=== PATIENT | female | born 1950 | race Caucasian/White ===

== ENCOUNTER → 2017-10-28 10:12 | Outpatient (POV) | payer MEDICARE, BC, SELFPAY | PROVIDERS: Family Provider Family Medicine; Visit Provider Physician Assistant | DX: Z00.00 Encounter for general adult medical examination without abnormal findings (principal) ==

== ENCOUNTER → 2020-05-10 08:15 | Outpatient (CLI) | payer MEDICARE, BC, SELFPAY ==
[2020-05-10 09:24] LABS: Chloride 105 mmol/L (98-107)
[2020-05-10 09:25] LABS: Potassium 3.8 mmoL/L (3.5-5.1); Sodium 141 mmol/L (136-145)
[2020-05-10 09:27] LABS: Alanine Aminotransferase 14 U/L (12-78); Anion Gap 12.8 mEq/L (5-15); Aspartate Amino Transferase 25 U/L (14-36); Blood Urea Nitrogen 16 mg/dl (7-17); Carbon Dioxide 27 mmol/L (22.0-30.0); Estimated Glomerular Filt Rate 82 ml/min (>60); GFR (African American) 100 ML/MIN (>60)
[2020-05-10 09:28] LABS: Albumin Level 4.1 g/dl (3.5-5.0); Albumin/Globulin Ratio 1.4 (1.1-1.8); Alkaline Phosphatase 83 U/L (38-126); Bilirubin,Total 1.3 mg/dl (0.2-1.3); Calcium 9.7 mg/dl (8.4-10.2); Chol/HDL Ratio 5.1 (1-3.5); Cholesterol 255 mg/dl (140-200); Glucose 103 mg/dl (74-100); HDL Cholesterol 50 mg/dl (40-60); Total Protein,Serum 7.1 g/dl (6.3-8.2); Triglycerides 88 mg/dl (30-150); VLDL Cholesterol 18 mg/dL (0-40)
[2020-05-10 09:39] LABS: Direct LDL Cholesterol 179.17 mg/dL (100-129)
[2020-05-10 09:57] LABS: Thyroid Stimulating Hormone 2.92 uIU/mL (0.465-4.68)
== END ==
PROVIDERS: Visit Provider Family Medicine
DX: I10 Essential (primary) hypertension (principal); E78.5 Hyperlipidemia, unspecified
CPT/HCPCS: 36415; 80053; 80061; 84443

== ENCOUNTER → 2021-10-17 11:21 | Outpatient (CLI) | payer MEDICARE, BC, SELFPAY ==
--- NOTE | 2021-10-17 11:27 | XR_ITS ---
FINAL REPORT CLINICAL HISTORY: LOW BACK PAIN x 2 WEEKS NKI FINDINGS: 5 views of the lumbar spine were obtained. There is no evidence of fracture or dislocation. The vertebral alignment is normal. There are mild degenerative changes with osteophytes. No paraspinous soft tissue abnormalities identified. IMPRESSION: Mild degenerative change with osteophytes. Reviewed, Interpreted and Dictated by Chris Kate III, MD Transcribed by Luis E Flores Authenticated by Chris Kate III, MD on 10/17/2021 01:50:24 PM [facility]
== END ==
PROVIDERS: PCP Family Medicine; Visit Provider Family Medicine
DX: M54.59 Other low back pain (principal)
CPT/HCPCS: 72110

== ENCOUNTER → 2021-10-25 11:48 | Outpatient (CLI) | payer MEDICARE, BC, SELFPAY ==
[2021-10-25 12:57] LABS: Basophils % 0.5 % (0.1-2.0); Eosinophils # 0.2 K/mm3 (0.0-0.4); Eosinophils % 2.5 % (0.1-12.0); Hemoglobin 14.4 g/dL (12.2-16.2); Lymphocytes # 1.7 K/mm3 (0.7-4.5); Lymphocytes % 17.6 % (10-50); Mean Corpuscular HGB Conc 32.6 g/dL (31.8-35.4); Mean Corpuscular Hemoglobin 28.9 pg (27.0-31.2); Mean Corpuscular Volume 88.8 fl (81-99); Mean Platelet Volume 6.9 fl (7.4-10.4); Monocytes # 0.6 K/mm3 (0.1-1.0); Monocytes % 5.8 % (1.7-9.3); Neutrophils % 73.7 % (37.0-80.0); Platelet Count 455 K/mm3 (142-424); Red Blood Count 4.96 M/mm3 (4.20-5.40); Red Cell Distribution Width 13.6 % (11.5-17.5); White Blood Count 9.5 K/mm3 (4.8-10.8)
== END ==
PROVIDERS: PCP Family Medicine; Visit Provider Physician Assistant
DX: U07.1 COVID-19 (principal)
CPT/HCPCS: 36415; 85025; C9803; U0003; U0005

== ENCOUNTER → 2022-10-05 15:38 | Outpatient (CLI) | payer MEDICARE, BC, OTHER, SELFPAY ==
--- NOTE | 2022-10-05 15:46 | CA_ITS ---
FINAL REPORT TECHNIQUE: Compression buck scale and Doppler evaluation CLINICAL HISTORY: HTN, hyperlipidemia, obesity. Patient states the bottom of her foot has been numb for a few weeks with a diagnosis of gout. She states last night her right calf began swelling and pain started in posterior calf. Denies trauma. FINDINGS: Femoral and popliteal veins show normal compressibility and flow. Visualized portion of the calf veins are patent by Doppler exam. IMPRESSION: No evidence of right lower extremity deep venous thrombosis Reviewed, Interpreted and Dictated by Froy Joy MD Transcribed by April Barrow Authenticated and [facility]
== END ==
PROVIDERS: PCP Family Medicine; Visit Provider Physician Assistant
DX: M79.604 Pain in right leg (principal); R60.0 Localized edema
CPT/HCPCS: 93971

== ENCOUNTER → 2023-08-13 12:37 | Outpatient (CLI) | payer MEDICARE, BC, OTHER, SELFPAY ==
--- NOTE | 2023-08-13 12:46 | XR_ITS ---
FINAL REPORT CLINICAL HISTORY: RT FOOT PAIN FINDINGS: Right foot Three views were obtained. There is no acute fracture or dislocation. Mild degenerative changes are present. Note is made of calcaneal spurs. No soft tissue abnormality is identified. IMPRESSION: Degenerative and chronic appearing findings. Reviewed, Interpreted and Dictated by Chris Kate III, MD Transcribed by Andreina Santa Authenticated and [facility]
== END ==
PROVIDERS: PCP Family Medicine; Visit Provider Family Medicine
DX: M79.672 Pain in left foot (principal); M79.671 Pain in right foot
CPT/HCPCS: 73630

== ENCOUNTER 2023-09-24 10:27 | Outpatient (POV) | payer MEDICARE, BC, OTHER, SELFPAY | END 2023-09-24 23:59 | disposition home or self-care (01) | LOC: SC 10:28 | PROVIDERS: PCP Family Medicine; Visit Provider Dermatology | DX: Z00.00 Encounter for general adult medical examination without abnormal findings (principal) ==

== ENCOUNTER 2023-09-27 07:58 | Outpatient (CLI) | payer MEDICARE, BC, OTHER, SELFPAY ==
--- NOTE | 2023-09-27 08:03 | XR_ITS ---
FINAL REPORT CLINICAL HISTORY: POST MENOPAUSAL Osteoporosis screening COMPARISON: None FINDINGS: Using L1-4, the bone mineral density of the spine is 0.918 g/cm2, corresponding to T-score of -1.2, consistent with low bone density. Using the left hip, the bone mineral density of the femoral neck is 0.858 g/cm2, corresponding to a T-score of -0.7, within normal limits. Using the right hip, the bone mineral density of the femoral neck is 0.629 g/cm2, corresponding to a T-score of -2.0, consistent with low bone density. FRAX 10 year fracture risk is 2.3% for a hip fracture and 11% for a major osteoporotic fracture. NOTE: T-score: Standard deviation compared with peak bone mass of young adult mean. *Following the recommendations of the International Society of Bone densitometry, classification of hip BMD is based on the lower of two T-scores; total hip or femoral neck. IMPRESSION: Diminished bone mineral density consistent with low bone density. Reviewed, Interpreted and Dictated by Chris Kate III, MD Transcribed by Mulu Ernandez Authenticated and [facility]
== END 2023-09-27 23:59 ==
LOC: RAD 07:59
PROVIDERS: PCP Family Medicine; Visit Provider Family Medicine
DX: Z78.0 Asymptomatic menopausal state (principal)
CPT/HCPCS: 77080

== ENCOUNTER 2024-01-24 10:01 | Outpatient (CLI) | payer MEDICARE, BC, OTHER, SELFPAY ==
--- NOTE | 2024-01-24 10:04 | US_ITS ---
PROCEDURE: US TRANSVAGINAL CLINICAL INDICATION: VAG. BLEEDING COMPARISON: No recent exams were available for comparison FINDINGS: Transvaginal sonographic images of the pelvis were obtained. UTERUS: 5.5cm x 4.3cmx 3.0cm anteverted with a combined endometrial thickness of 11.6mm. There are small cystic areas within the endometrium. There is fluid in the cervix. LEFT OVARY: 2.7 cmx1.3cmx1.3cm with a volume of 2.3ml. RIGHT OVARY: 1.9 cmx 1.7 cmx1.9 cm with a volume of 3.1ml. Both ovaries are seen and appear solid and atrophic. Doppler flow to both ovaries are seen. There is no fluid in the cul-de-sac. IMPRESSION: 1. Anteverted uterus small in size. There is fluid in the cervix. 2. The endometrium is thickened and cystic. Suspicious for endometrial hyperplasia/endometrial carcinoma. 3. Suggest endometrial sampling. 4. Both ovaries are solid, small and atrophic appearing. 5. No fluid in the cul-de-sac. Dictated by: Marciano Willams MD 01/24/2024 16:41 Marciano Willams MD in OV 01/24/2024 16:41
== END 2024-01-24 23:59 | disposition home or self-care (01) ==
LOC: RAD 10:02
PROVIDERS: PCP Family Medicine; Visit Provider Physician Assistant
DX: N93.9 Abnormal uterine and vaginal bleeding, unspecified (principal)
CPT/HCPCS: 76830

== ENCOUNTER 2024-02-13 08:13 | Outpatient (CLI) | payer MEDICARE, BC, OTHER, SELFPAY ==
[2024-02-13 08:46] LABS: Basophils # 0.1 K/mm3 (0-0.2); Basophils % 0.8 % (0.1-2.0); Eosinophils # 0.2 K/mm3 (0.0-0.4); Hematocrit 42.6 % (37.0-47.0); Lymphocytes # 1.7 K/mm3 (0.7-4.5); Lymphocytes % 22.8 % (10-50); Mean Corpuscular HGB Conc 32.8 g/dL (31.8-35.4); Mean Corpuscular Hemoglobin 29.9 pg (27.0-31.2); Mean Corpuscular Volume 91.1 fl (81-99); Monocytes # 0.4 K/mm3 (0.1-1.0); Monocytes % 5.5 % (1.7-9.3); Neutrophils # 5.2 K/mm3 (1.8-7.8); Neutrophils % 67.9 % (37.0-80.0); Platelet Count 399 K/mm3 (142-424); Red Blood Count 4.67 M/mm3 (4.20-5.40); Red Cell Distribution Width 14.5 % (11.5-17.5); White Blood Count 7.6 K/mm3 (4.8-10.8)
[2024-02-13 09:34] LABS: Chloride 105 mmol/L (98-107); Sodium 140 mmol/L (136-145)
[2024-02-13 09:35] LABS: Potassium 4.4 mmoL/L (3.5-5.1)
[2024-02-13 09:37] LABS: Alanine Aminotransferase 17 U/L (12-78); Albumin Level 4.1 g/dl (3.5-5.0); Albumin/Globulin Ratio 1.4 (1.1-1.8); Alkaline Phosphatase 86 U/L (38-126); Anion Gap 13.4 mEq/L (5-15); Aspartate Amino Transferase 27 U/L (14-36); Bilirubin,Total 0.9 mg/dl (0.2-1.3); Blood Urea Nitrogen 16 mg/dl (7-17); Calcium 10.1 mg/dl (8.4-10.2); Carbon Dioxide 26 mmol/L (22.0-30.0); Estimated Glomerular Filt Rate 82 ml/min (>60); GFR (African American) 99 ML/MIN (>60); Globulin 2.9 g/dL (1.3-3.2); Glucose 115 mg/dl (74-100)
== END 2024-02-13 23:59 | disposition home or self-care (01) ==
LOC: LAB 08:14
PROVIDERS: PCP Family Medicine; Visit Provider Obstetrics & Gynecology
DX: N95.0 Postmenopausal bleeding (principal)
CPT/HCPCS: 36415; 80053; 85025

== ENCOUNTER 2024-02-22 15:45 | Observation (INO) | payer MEDICARE, BC, OTHER, SELFPAY ==
[2024-02-22] VITALS (7 sets, daily range): BP systolic 140–171; BP diastolic 67–86; PULSE 60–80; RESP 12–22; TEMP 36.6–36.7; O2SAT 93–99; BMI 25.7; BMI 42.0; BMI 40.5
--- NOTE | 2024-02-22 15:40 | CT_ITS ---
PROCEDURE INFORMATION: Exam: CT Head Without Contrast Exam date and time: 02/22/2024 3:48 PM Age: 73 years old Clinical indication: Stroke-like symptoms; Dizziness/giddiness and visual disturbance and other: Nausea; Additional info: CVA alert TECHNIQUE: Imaging protocol: Computed tomography of the head without contrast. Radiation optimization: All CT scans at this facility use at least one of these dose optimization techniques: automated exposure control; mA and/or kV adjustment per patient size (includes targeted exams where dose is matched to clinical indication); or iterative reconstruction. Other technique: STROKE PROTOCOL was implemented. COMPARISON: No relevant prior studies available. FINDINGS: Brain: There is white matter lucency most likely to represent chronic microvascular disease. No evidence of acute infarct. No hemorrhage or extra-axial collection. No mass. Cerebral ventricles: There is no hydrocephalus. Paranasal sinuses: Visualized sinuses are unremarkable. No fluid levels. Mastoid air cells: Visualized mastoid air cells are well aerated. Bones: Unremarkable. No acute fracture. Soft tissues: Unremarkable. IMPRESSION: No intracranial lesion or injury ASSESSMENT: ASPECTS ([place] Stroke Program Early CT Score) is 10.
--- NOTE | 2024-02-22 15:52 | PC.NURSE ---
Upon arrival by EMS pt sent straight to CT. FSBS: 135 upon arrival
[2024-02-22 16:03] LABS: Basophils # 0.1 K/mm3 (0-0.2); Basophils % 0.7 % (0.1-2.0); Eosinophils # 0.3 K/mm3 (0.0-0.4); Eosinophils % 2.2 % (0.1-12.0); Hematocrit 44.2 % (37.0-47.0); Lymphocytes # 2.2 K/mm3 (0.7-4.5); Lymphocytes % 19.5 % (10-50); Mean Corpuscular HGB Conc 31.7 g/dL (31.8-35.4); Mean Corpuscular Hemoglobin 29.2 pg (27.0-31.2); Mean Platelet Volume 7.6 fl (7.4-10.4); Monocytes # 0.5 K/mm3 (0.1-1.0); Monocytes % 4.4 % (1.7-9.3); Neutrophils # 8.2 K/mm3 (1.8-7.8); Neutrophils % 73.2 % (37.0-80.0); Platelet Count 428 K/mm3 (142-424); Red Cell Distribution Width 14.2 % (11.5-17.5); White Blood Count 11.1 K/mm3 (4.8-10.8)
[2024-02-22 16:06] LABS: Chloride 107 mmol/L (98-107); Sodium 139 mmol/L (136-145)
[2024-02-22 16:07] LABS: Potassium 3.8 mmoL/L (3.5-5.1)
--- NOTE | 2024-02-22 16:07 | ECG_ITS ---
APPROVED REPORT Exam: Resting ECG HR:70 bpm ECG Measurements Heart Rate 70 AXES ID 196 P 57 QRSd 101 QRS -1 QT 397 T 57 QTc 418 Conclusion SINUS RHYTHM NORMAL ECG UNCONFIRMED REPORT Electronically signed by : Kian Ta, 02/22/2024 22:36:26
[2024-02-22 16:09] LABS: Alanine Aminotransferase 20 U/L (12-78); Albumin Level 4.2 g/dl (3.5-5.0); Albumin/Globulin Ratio 1.2 (1.1-1.8); Alkaline Phosphatase 98 U/L (38-126); Anion Gap 13.8 mEq/L (5-15); Aspartate Amino Transferase 28 U/L (14-36); Bilirubin,Total 0.7 mg/dl (0.2-1.3); Blood Urea Nitrogen 17 mg/dl (7-17); Carbon Dioxide 22 mmol/L (22.0-30.0); Creatinine Clearance Estimated 53 mL/min (50-200); Estimated Glomerular Filt Rate 54 ml/min (>60); GFR (African American) 66 ML/MIN (>60); Globulin 3.5 g/dL (1.3-3.2); Total Protein,Serum 7.7 g/dl (6.3-8.2)
[2024-02-22 16:10] LABS: Calcium 9.8 mg/dl (8.4-10.2); Glucose 152 mg/dl (74-100)
--- NOTE | 2024-02-22 16:16 | PC.NURSE ---
Dr. Ta at BS for pt adam. at BS
--- NOTE | 2024-02-22 16:17 | PC.NURSE ---
Dr. Ta at bedside
[2024-02-22 16:22] LABS: Troponin I < 0.01 ng/ml (0.00-0.034)
--- NOTE | 2024-02-22 16:30 | ED_ITS ---
Discharge Plan Disposition Chief Complaint: Altered Mental Status Clinical Impressions Clinical Impression: Syncope, Acute encephalopathy, Respiratory arrest Discharge ED Provider: Marita Ta General Adult HPI General Chief complaint: Altered Mental Status Stated complaint: Possible Stroke Time Seen by Provider: 02/22/24 16:02 Mode of Arrival: EMS Source of Information: Patient, Spouse, Relative and EMS Limitations: Altered Mental Status Description of Symptoms (Recalled from ER Triage Doc. by RN): per ems and family patient was outside in garage and got dizzy and nauseated, pt states she dont feel right in the head and that this is different than her inner ear dizziness, per ems and upon arrival fbs and vitals WNL. pt alert but confused. last known well was 1400 per family pt takes no blood thinners History of Present Illness HPI narrative: Patient is a 73-year-old female presented today with altered mental status. History is obtained from the patient but is limited secondary to her clinical status also was obtained from family who is at the bedside. They state that she was in her normal state of health until about 245 when she started to get nauseated she had only been outside for about 30 minutes but it is about 90 to 95 degrees outside today. She went to sit down and they found her slumped over in a chair unconscious and she was not breathing for about 1 minute. They stated they were about to do chest compressions they did not check a pulse but she subsequently woke up shortly after that and was very confused. EMS felt as though there may have been's unilateral weakness she was taken straight to the CAT scan. However CTAs were not performed given that she has had severe anaphylaxis to contrast in the past. Noncontrasted CT scan was performed prior to my evaluation. She states she just got very confused and nauseated and that she denies any other symptoms right now. Family states she is not at her mental baseline at the moment. Related Data Home Medications Medication Instructions Recorded Confirmed allopurinol 100 mg tablet 100 mg PO DAILY 09/19/23 02/19/24 (Zyloprim) omeprazole 20 mg capsule,delayed 20 mg PO DAILY 09/19/23 02/19/24 release rosuvastatin 10 mg tablet 10 mg PO DAILY 09/19/23 02/19/24 sertraline 25 mg tablet (Zoloft) 25 mg PO DAILY 09/19/23 02/19/24 Previous Rx's Medication Instructions Recorded acetaminophen 500 mg tablet 500 mg PO Q6H PRN fever #30 tabs 02/14/24 ibuprofen 800 mg tablet 800 mg PO Q8H PRN Pain, Mild #30 02/14/24 tabs Allergies Allergy/AdvReac Type Severity Reaction Status Date / Time ampicillin Allergy Unknown S-ANAPHYLAX Verified 02/19/24 11:06 IS cefaclor Allergy Unknown I-HIVES Verified 02/19/24 11:06 Iodinated Contrast Media Allergy Hives Verified 02/19/24 11:06 [facility] Disclaimer: The information contained in this section may have been updated after the patient was seen, as this information can be updated by other users. 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 Travel in the last 8 weeks: None ROS Obtained: Yes All systems reviewed & no additional complaints except as documented Physical Exam General General appearance: alert Respiratory Respiratory exam: Present other (Oxygen saturations 90% on room air no respiratory distress) Cardiovascular Cardiovascular exam: Present regular rate and normal rhythm Abdominal Exam Abdominal exam: Present soft; Absent distention or tenderness Neurological Exam Neurological exam: Present alert, oriented X3 (Patient is not oriented to situation or date), CN II-XII intact and other (Finger-nose [id number] normal bilaterally); Absent motor sensory deficit Medical Decision Making Prasanna Inquiry Pt receiving controlled substance: No Vital Signs: 02/22/24 15:45 02/22/24 16:06 02/22/24 16:30 Temperature 97.9 F Temperature Source Oral Pulse Rate 78 72 Pulse Rate [Right Radial] 77 Respiratory Rate 18 22 Blood Pressure 151/70 H 142/67 H Blood Pressure [Right Arm] 151/70 H Blood Pressure Mean [Right Arm] 97 02 Sat by Pulse Oximetry 97 93 L 99 Oxygen Delivery Method Room Air Nasal Cannula Nasal Cannula Oxygen Flow Rate (LPM) 2 2 02/22/24 17:01 Temperature Temperature Source Pulse Rate 77 Pulse Rate [Right Radial] Respiratory Rate 12 Blood Pressure 166/74 H Blood Pressure [Right Arm] Blood Pressure Mean [Right Arm] 02 Sat by Pulse Oximetry 98 Oxygen Delivery Method Room Air Oxygen Flow Rate (LPM) Lab Data Lab results reviewed: Yes I reviewed the patient's lab results. Lab Results 02/22/24 15:52: WBC 11.1 H, RBC 4.80, Hgb 14.0, Hct 44.2, MCV 92.0, MCH 29.2, M CHC 31.7 L, RDW 14.2, Plt Count 428 H, MPV 7.6, Neut % (Auto) 73.2, Lymph % (Auto) 19.5, [place] % (Auto) 4.4, Eos % (Auto) 2.2, Baso % (Auto) 0.7, Neut # (Auto) 8.2 H, Lymph # (Auto) 2.2, [place] # (Auto) 0.5, Eos # (Auto) 0.3, Baso # (Auto) 0.1, D-Dimer 0.58 H, Sodium 139, Potassium 3.8, Chloride 107, Carbon Dioxide 22, Anion Gap 13.8, BUN 17, Creatinine 1.00, Estimated Creat Clear 53, E stimated GFR 54 L, Est GFR ( Amer) 66, Glucose 152 H, Calcium 9.8, Magnesium 1.9, Total Bilirubin 0.7, AST 28, ALT 20, Alkaline Phosphatase 98, T otal Creatine Kinase 24 L, Troponin I < 0.01, Total Protein 7.7, Albumin 4.2, G lobulin 3.5 H, Albumin/Globulin Ratio 1.2, TSH 2.40 02/22/24 16:30: VBG pH 7.37, VBG pCO2 35.3, VBG pO2 51.9 H, VBG HCO3 19.9 L, VBG Total CO2 20.9 L, VBG O2 Saturation 87.4 H, VBG Base Excess -5.5 L, VBG Lactic Acid 1.6 02/22/24 17:06: Urine Color Yellow, Urine Appearance Clear, Urine pH 7.0, Ur Specific [place] 1.020, Urine Protein Negative, Urine Glucose (UA) Negative, Urine Ketones 1+, Urine Blood 1+, Urine Nitrate Negative, Urine Bilirubin Negative, Urine Urobilinogen 1.0, Ur Leukocyte Esterase Negative, Urine RBC Occasional, Urine WBC None, Ur Squamous Epith Cells None, Urine Bacteria None 02/22/24 15:52 02/22/24 15:52 Orders (Tests/Meds): ED MEDICATIONS Generic Name Dose Route Start Last Admin Trade Name Freq PRN Reason Stop Dose Admin Aspirin 324 mg 02/22/24 17:35 Aspirin 81mg Chewable Tablet PO 02/22/24 17:36 ONCE ONE Clopidogrel Bisulfate 300 mg 02/22/24 17:35 Clopidogrel 300mg Tablet PO 02/22/24 17:36 ONCE ONE Lactated Ringer's 1,000 mls @ 150 mls/hr 02/22/24 17:45 Lactated Ringer's 1000 Ml Bag IV 03/23/24 17:44 .Q6H40M DELMY Sodium Chloride 10 ml 02/22/24 17:35 Sodium Chloride 0.9% 10ml Flush Syringe IV 03/23/24 17:34 NEEDED PRN Maintain IV Site Discontinued Medications Generic Name Dose Route Start Last Admin Trade Name Freq PRN Reason Stop Dose Admin Lactated Ringer's 1,000 mls @ 999 mls/hr 02/22/24 16:30 02/22/24 16:31 Lactated Ringer's 1000 Ml Bag IV 02/22/24 17:30 999 mls/hr .Q1H1M DELMY Administration ORDERS Category Date Time Status CT head/brain wo con Stat Cat Scan 02/22/24 15:40 Completed CK [Creatine Kinase] Stat Lab 02/22/24 15:52 Completed Complete Blood Count Auto Diff Stat Lab 02/22/24 15:52 Completed Comprehensive Metabolic Panel Stat Lab 02/22/24 15:52 Completed D-Dimer Stat Lab 02/22/24 15:52 Completed Magnesium Stat Lab 02/22/24 15:52 Completed POC Glucose,Bedside Stat Lab 02/22/24 15:40 Ordered TSH [Thyroid Stimulating Hormone] Stat Lab 02/22/24 15:52 Completed Troponin I Q3H Lab 02/22/24 18:45 Ordered Troponin I Q3H Lab 02/22/24 21:45 Ordered Troponin I Stat Lab 02/22/24 15:52 Completed Urinalysis and Microscopic Stat Lab 02/22/24 17:06 Completed Venous Blood Gas Stat RT 02/22/24 16:30 Completed ECG Data Tracing #1: I reviewed this ECG and interpreted as documented below: Ventricular of 70 normal sinus rhythm no acute ischemic changes noted no conduction abnormalities indeterminate axis Medical Decision Narrative: Patient with above history and physical she is acutely encephalopathic with a nonfocal neurologic exam. It is possible she had an arrhythmia that caused her to have syncopal episode she also had respiratory arrest from historical standpoint but is unlikely that she lost a pulse. Oxygen saturations are 90% to also possible that she had some significant anoxia that may have caused a mild injury to her brain. No evidence of any buck-white distribution change abnormalities or global anoxic injury on CT scan. I am holding off on angiography as she has had anaphylaxis to contrast in the past but she certainly will need an MRI as a stroke as still in the differential but would be very small at this point. NIH would be less than 3 currently. No indication for tPA or LVO at the moment. Differential remains broad including infectious etiologies environmental injuries from the heat metabolic abnormalities dehydration. IV fluids and oxygen have been administered will reassess. Reassessment 5:41 PM patient's mental status is significantly improved. She is alert and oriented x 3 now. Still be ward to admit her for observation given what happened. She might need an MRI. This is possible to have been a TIA versus stroke cannot rule that out at this point. I discussed the case with Dr. Larson who is on-call for Dr. Braxton we will give aspirin and Plavix maintenance fluids she will be admitted with serial neurologic exams and telemetry monitoring. Family's been made aware of this workup otherwise unremarkable. No definitive explanation for what happened I am concerned that this was an arrhythmia she will need further cardiac workup in my opinion outpatient once this episode is resolved. Critical Care Critical Care Time Critical Care Time: No
[2024-02-22] MEDS: LACTATED RINGERS 1000ML 1,000 ML 999 ML IV (16:31)
--- NOTE | 2024-02-22 16:34 | PC.NURSE ---
Entry of events: 1538- Report received from Pelon Simms EMT-P while in route. MD notified of symptoms and states to go ahead and get CT scan wo/w head and neck. Radiology notified. Pre-registered pt. 1541- Paged stroke Alert to ER. EMS is pulling into ER bay. Orders placed per MD & protocol 1543- Pt on EMS stretcher, taken to CT scan directly. FS obtained while escorting pt to scan. FS 135 1546- CT Head wo completed and sent to [facility] -stroke protocol. I began to attempt an IV. 1552- IV established to RAC, 20g. Blood collected and labeled next to pt. 1557- Per chart, pt is allergic to IV contrast and gets hives per family. MD with pt in CT scanner. 1603- MD states he would like to hold off on contrasted scans at this time. 1605- pt taken to room 4 & placed in a gown. Staff obtaining full set of VS and EKG. 1610- 4 visitors allowed back to pt's room as MD is going to further evaluate pt.
--- NOTE | 2024-02-22 16:36 | PC.NURSE ---
RT notified of VBG
[2024-02-22 16:43] LABS: Lactate Venous 1.6 mmol/L (0.4-2.0); VBG Base Excess -5.5 mmol/L (-2.4-2.3); VBG HCO3 19.9 mmol/L (23-30); VBG Oxygen Saturation 87.4 % (50-70); VBG PCO2 35.3 mmol/L (35-51); VBG PH 7.37 mmol/L (7.31-7.41); VBG PO2 51.9 mmol/L (28-40); VBG Total CO2 20.9 mmol/L (23-27)
[2024-02-22 16:47] LABS: Creatine Kinase 24 U/L (30-135); Magnesium 1.9 mg/dl (1.6-2.3)
--- NOTE | 2024-02-22 16:48 | PC.NURSE ---
PT provided with warm blanket.
[2024-02-22 16:52] LABS: D-Dimer 0.58 ug/mL (0.0-0.5)
[2024-02-22 17:07] LABS: Microscopic, Urine URINE MICROSCOPIC (MICROSCOPIC)
[2024-02-22 17:11] LABS: Appearance,Urine CLEAR (Clear); Bilirubin,Urine Negative (Negative); Blood, Urine 1+ (Negative); Color,Urine YELLOW (Yellow); Glucose,Urine (UA) Negative (Negative); Ketones,Urine 1+ (Negative); Leukocyte Esterase,Urine Negative (Negative); Nitrate,Urine Negative (Negative); Protein,Urine Negative (Negative)
--- NOTE | 2024-02-22 17:15 | PC.NURSE ---
Dr. Ta speaking with Dr. Loza about possible admission
--- NOTE | 2024-02-22 17:20 | PC.NURSE ---
hatch supervisor notified of admission
[2024-02-22 17:29] LABS: RBC,Urine Occasional #/hpf (0-3)
--- NOTE | 2024-02-22 17:36 | PC.NURSE ---
called report to second floor rn and answered all questions
[2024-02-22] MEDS: LACTATED RINGERS 1000ML 1,000 ML 150 ML IV (18:19)
[2024-02-22] MEDS: CLOPIDOGREL 300MG TABLET 300 MG PO (18:20)
[2024-02-22] MEDS: ASPIRIN 81MG CHEWABLE TABLET 324 MG PO (18:23)
[2024-02-22 19:49] LABS: Troponin I < 0.01 ng/ml (0.00-0.034)
[2024-02-22 22:17] LABS: Troponin I < 0.01 ng/ml (0.00-0.034)
[2024-02-23] VITALS: BP 150/65; PULSE 63; PULSE 70; RESP 18; TEMP 36.6; O2SAT 95
[2024-02-23] MEDS: LACTATED RINGERS 1000ML 1,000 ML 150 ML IV ×2 (00:51→08:36)
[2024-02-23 04:00] VITALS: BP 148/64; PULSE 54; RESP 18; TEMP 36.7; O2SAT 95; BMI 41.8
--- NOTE | 2024-02-23 04:00 | PC.NURSE ---
Pt is alert and oriented x4 and currently tolerating RA well. Pt denies pain and dizziness and admits to feeling much better than she did upon admission. Pt has no complaints and has tolerated fluid therapy well. There have been no acute changes this shift to note
--- NOTE | 2024-02-23 04:55 | ECG_ITS ---
APPROVED REPORT Exam: Resting ECG HR:55 bpm ECG Measurements Heart Rate 55 AXES CO 212 P 47 QRSd 95 QRS -7 QT 444 T 43 QTc 433 Conclusion SINUS BRADYCARDIA WITH FIRST DEGREE AV BLOCK WITH OCCASIONAL VENTRICULAR PREMATURE COMPLEXES MINIMAL VOLTAGE CRITERIA FOR LVH, CONSIDER NORMAL VARIANT [MEETS CRITERIA IN ONE OF: R(aVL), S(V1), R(V5), R(V5/V6)+S(V1)] ABNORMAL ECG Electronically signed by : GENA VELASQUEZ, 02/23/2024 07:42:42
[2024-02-23 07:51] VITALS: BP 159/74; PULSE 68; RESP 18; TEMP 37.3; O2SAT 98
[2024-02-23 07:53] LABS: Basophils # 0.1 K/mm3 (0-0.2); Basophils % 1.1 % (0.1-2.0); Eosinophils # 0.2 K/mm3 (0.0-0.4); Eosinophils % 2.4 % (0.1-12.0); Hematocrit 41.8 % (37.0-47.0); Hemoglobin 13.1 g/dL (12.2-16.2); Lymphocytes # 1.9 K/mm3 (0.7-4.5); Lymphocytes % 21.9 % (10-50); Mean Corpuscular HGB Conc 31.3 g/dL (31.8-35.4); Mean Corpuscular Hemoglobin 28.9 pg (27.0-31.2); Mean Corpuscular Volume 92.1 fl (81-99); Mean Platelet Volume 7.6 fl (7.4-10.4); Monocytes # 0.5 K/mm3 (0.1-1.0); Monocytes % 6.1 % (1.7-9.3); Neutrophils % 68.5 % (37.0-80.0); Platelet Count 370 K/mm3 (142-424); Red Blood Count 4.53 M/mm3 (4.20-5.40); Red Cell Distribution Width 14.4 % (11.5-17.5); White Blood Count 8.8 K/mm3 (4.8-10.8)
[2024-02-23 08:00] VITALS: PULSE 50
[2024-02-23 08:01] LABS: Chloride 108 mmol/L (98-107)
[2024-02-23 08:02] LABS: Potassium 4.3 mmoL/L (3.5-5.1); Sodium 139 mmol/L (136-145)
[2024-02-23 08:04] LABS: Blood Urea Nitrogen 13 mg/dl (7-17); Creatinine Clearance Estimated 37 mL/min (50-200); Estimated Glomerular Filt Rate 82 ml/min (>60); GFR (African American) 99 ML/MIN (>60)
[2024-02-23 08:05] LABS: Anion Gap 8.3 mEq/L (5-15); Calcium 9.5 mg/dl (8.4-10.2); Carbon Dioxide 27 mmol/L (22.0-30.0); Glucose 102 mg/dl (74-100)
--- NOTE | 2024-02-23 08:07 | P.CONPHA_ITS ---
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 -EBENEZER VERDUZCOD
--- NOTE | 2024-02-23 08:07 | HMH.PHAINT1 ---
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 -EBENEZER VERDUZCOD
--- NOTE | 2024-02-23 09:28 | EXP.HPDC ---
General Admission date:: 02/22/24 Discharge date: 02/23/24 *Admission Date: 02/22/24 *Chief complaint: Passed out *History of present illness: Mrs. Stratton is a 73 year old female who normally see Dr. Braxton at [facility] for her primary care. She and her family members are present today for this evaluation. They report patient was in her normal state of health up yesterday afternoon. When she was sitting outside talking to family members and started feeling very hot. She got up to walking inside but sat down in her garage instead due to feeling faint. Family says she became non responsive and had minimal to no respiratory effort for about 1 minute. They laid her down and were getting ready to begin CPR when she started breathing again and began to regain consciousness. He was confused after this episode. She did not lose control of bowels and bladder and did not have any shaking that made the family think she had a seizure. They called 911 for an ambulance to bring patient to [facility]. [facility] Disclaimer: The information contained in this section may have been updated after the patient was seen, as this information can be updated by other users. 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 Travel in the last 8 weeks: None Review of Systems Constitutional Constitutional: Denies chills and Denies fever(s) ENT Ears, Nose, Mouth, and Throat: Denies dysphagia *Cardiovascular Cardiovascular: Denies chest pain *Respiratory Respiratory: Denies cough *Gastrointestinal Gastrointestinal: Denies dysphagia *Genitourinary Genitourinary: Denies difficulty voiding *Musculoskeletal Musculoskeletal: Denies arthralgias *Neurologic Neurologic: Reports as per HPI Exam Data for Last 24 hours Vital signs and Labs for Last 24 Hours: Temp Pulse Resp BP Pulse Ox O2 Del Method O2 Flow Rate 99.2 F 50 L 18 159/74 H 98 Room Air 2 02/23/24 07:51 02/23/24 08:00 02/23/24 07:51 02/23/24 07:51 02/23/24 07:51 02/23/24 08:43 02/22/24 18:15 Laboratory Results - last 24 hr 02/22/24 15:52: WBC 11.1 H, RBC 4.80, Hgb 14.0, Hct 44.2, MCV 92.0, MCH 29.2, MCHC 31.7 L, RDW 14.2, Plt Count 428 H, MPV 7.6, Neut % (Auto) 73.2, Lymph % (Auto) 19.5, Weber % (Auto) 4.4, Eos % (Auto) 2.2, Baso % (Auto) 0.7, Neut # (Auto) 8.2 H, Lymph # (Auto) 2.2, Weber # (Auto) 0.5, Eos # (Auto) 0.3, Baso # (Auto) 0.1, D-Dimer 0.58 H, Sodium 139, Potassium 3.8, Chloride 107, Carbon Dioxide 22, Anion Gap 13.8, BUN 17, Creatinine 1.00, Estimated Creat Clear 53, Estimated GFR 54 L, Est GFR ( Amer) 66, Glucose 152 H, Calcium 9.8, Magnesium 1.9, Total Bilirubin 0.7, AST 28, ALT 20, Alkaline Phosphatase 98, Total Creatine Kinase 24 L, Troponin I < 0.01, Total Protein 7.7, Albumin 4.2, Globulin 3.5 H, Albumin/Globulin Ratio 1.2, TSH 2.40 02/22/24 16:30: VBG pH 7.37, VBG pCO2 35.3, VBG pO2 51.9 H, VBG HCO3 19.9 L, VBG Total CO2 20.9 L, VBG O2 Saturation 87.4 H, VBG Base Excess -5.5 L, VBG Lactic Acid 1.6 02/22/24 17:06: Urine Color Yellow, Urine Appearance Clear, Urine pH 7.0, Ur Specific [place] 1.020, Urine Protein Negative, Urine Glucose (UA) Negative, Urine Ketones 1+, Urine Blood 1+, Urine Nitrate Negative, Urine Bilirubin Negative, Urine Urobilinogen 1.0, Ur Leukocyte Esterase Negative, Urine RBC Occasional, Urine WBC None, Ur Squamous Epith Cells None, Urine Bacteria None 02/22/24 19:00: Troponin I < 0.01 02/22/24 21:45: Troponin I < 0.01 02/23/24 07:40: WBC 8.8, RBC 4.53, Hgb 13.1, Hct 41.8, MCV 92.1, MCH 28.9, MCHC 31.3 L, RDW 14.4, Plt Count 370, MPV 7.6, Neut % (Auto) 68.5, Lymph % (Auto) 21.9, Weber % (Auto) 6.1, Eos % (Auto) 2.4, Baso % (Auto) 1.1, Neut # (Auto) 6.0, Lymph # (Auto) 1.9, Weber # (Auto) 0.5, Eos # (Auto) 0.2, Baso # (Auto) 0.1, Sodium 139, Potassium 4.3, Chloride 108 H, Carbon Dioxide 27, Anion Gap 8.3, BUN 13, Creatinine 0.70 D, Estimated Creat Clear 37, Estimated GFR 82, Est GFR ( Amer) 99 D, Glucose 102 H D, Calcium 9.5 I & O for Last 24 hours: Intake & Output 02/20/24 02/21/24 02/22/24 02/23/24 23:59 23:59 23:59 23:59 Intake Total 2009 Output Total 0 / 0 0 / 0 Balance 0 / 1110 2009 Weight 221 lb 9 oz 227 lb 8 oz Constitutional Constitutional: no acute distress *Routine HEENT Exam Head: Present normocephalic Eye: Present EOMI and PERRL ENT: Present mucous membranes moist *Routine Neck Exam Neck: Present supple; Absent lymphadenopathy *Routine Respiratory Exam Respiratory: Present CTA bilaterally *Routine Cardiovascular Exam Cardiovascular: Present RRR *Routine Abdominal Exam Abdominal: Present soft and normoactive bowel sounds; Absent tenderness *Routine Rectal Exam Rectal:: deferred *Routine Genitalia Exam Genitalia:: deferred *Routine Extremities Exam Extremities: Absent cyanosis, clubbing or edema *Routine Skin Exam Skin: Present warm; Absent rash *Routine Neurological Exam Neurological: Present alert and oriented X3 Meds Home Medications and Allergies Home Medications Medication Instructions Recorded Confirmed Type allopurinol 100 mg tablet 100 mg PO DAILY 09/19/23 02/23/24 History (Zyloprim) omeprazole 20 mg capsule,delayed 20 mg PO DAILY 09/19/23 02/23/24 History release rosuvastatin 10 mg tablet 10 mg PO DAILY 09/19/23 02/23/24 History sertraline 25 mg tablet (Zoloft) 25 mg PO DAILY 09/19/23 02/23/24 History acetaminophen 500 mg tablet 500 mg PO Q6H PRN fever #30 tabs 02/14/24 02/22/24 Rx ibuprofen 800 mg tablet 800 mg PO Q8H PRN Pain, Mild #30 02/14/24 02/22/24 Rx tabs meclizine 25 mg tablet 25 mg PO TID PRN Dizziness Or 02/22/24 02/23/24 History Vertigo aspirin 81 mg capsule 81 mg PO DAILY #30 caps 02/23/24 Rx clopidogrel 75 mg tablet 75 mg PO DAILY #30 tabs 02/23/24 Rx New Prescriptions to Start Prescriptions: aspirin [place] clopidogrel [place] Allergies Allergy/AdvReac Type Severity Reaction Status Date / Time ampicillin Allergy Unknown S-ANAPHYLAX Verified 02/19/24 11:06 IS cefaclor Allergy Unknown I-HIVES Verified 02/19/24 11:06 Iodinated Contrast Media Allergy Hives Verified 02/19/24 11:06 Hospital Course Hospital Course Hospital Course: Patient was admitted to [facility] for further evaluation and monitoring. Non contrast CT was normal, labs showed a slight dehydration. Aspirin, plavix and IVF were given to the patient. She states about 4 hours after the episode at her home she felt completely normal. Her memory is normal, she has no confusion or weakness. He speech is clear. She is tolerating a regular diet and is anxious to go home. Will plan for patient to continue aspirin and Plavix for 30 days. She will also be discharged with a cardiac event monitor. Results Data Completed and Pending Labs on day of discharge: Labs from last 24 hours 02/23/24 02/22/24 02/22/24 07:40 21:45 19:00 WBC 8.8 RBC 4.53 Hgb 13.1 Hct 41.8 MCV 92.1 MCH 28.9 MCHC 31.3 L RDW 14.4 Plt Count 370 MPV 7.6 Neut % (Auto) 68.5 Lymph % (Auto) 21.9 Weber % (Auto) 6.1 Eos % (Auto) 2.4 Baso % (Auto) 1.1 Neut # (Auto) 6.0 Lymph # (Auto) 1.9 Weber # (Auto) 0.5 Eos # (Auto) 0.2 Baso # (Auto) 0.1 D-Dimer VBG pH VBG pCO2 VBG pO2 VBG HCO3 VBG Total CO2 VBG O2 Saturation VBG Base Excess VBG Lactic Acid Sodium 139 Potassium 4.3 Chloride 108 H Carbon Dioxide 27 Anion Gap 8.3 BUN 13 Creatinine 0.70 D Estimated Creat Clear 37 Estimated GFR 82 Est GFR ( Amer) 99 D Glucose 102 H D Calcium 9.5 Magnesium Total Bilirubin AST ALT Alkaline Phosphatase Total Creatine Kinase Troponin I < 0.01 < 0.01 Total Protein Albumin Globulin Albumin/Globulin Ratio TSH Urine Color Urine Appearance Urine pH Ur Specific [place] Urine Protein Urine Glucose (UA) Urine Ketones Urine Blood Urine Nitrate Urine Bilirubin Urine Urobilinogen Ur Leukocyte Esterase Urine RBC Urine WBC Ur Squamous Epith Cells Urine Bacteria 02/22/24 02/22/24 02/22/24 17:06 16:30 15:52 WBC 11.1 H RBC 4.80 Hgb 14.0 Hct 44.2 MCV 92.0 MCH 29.2 MCHC 31.7 L RDW 14.2 Plt Count 428 H MPV 7.6 Neut % (Auto) 73.2 Lymph % (Auto) 19.5 Weber % (Auto) 4.4 Eos % (Auto) 2.2 Baso % (Auto) 0.7 Neut # (Auto) 8.2 H Lymph # (Auto) 2.2 Weber # (Auto) 0.5 Eos # (Auto) 0.3 Baso # (Auto) 0.1 D-Dimer 0.58 H VBG pH 7.37 VBG pCO2 35.3 VBG pO2 51.9 H VBG HCO3 19.9 L VBG Total CO2 20.9 L VBG O2 Saturation 87.4 H VBG Base Excess -5.5 L VBG Lactic Acid 1.6 Sodium 139 Potassium 3.8 Chloride 107 Carbon Dioxide 22 Anion Gap 13.8 BUN 17 Creatinine 1.00 Estimated Creat Clear 53 Estimated GFR 54 L Est GFR ( Amer) 66 Glucose 152 H Calcium 9.8 Magnesium 1.9 Total Bilirubin 0.7 AST 28 ALT 20 Alkaline Phosphatase 98 Total Creatine Kinase 24 L Troponin I < 0.01 Total Protein 7.7 Albumin 4.2 Globulin 3.5 H Albumin/Globulin Ratio 1.2 TSH 2.40 Urine Color Yellow Urine Appearance Clear Urine pH 7.0 Ur Specific [place] 1.020 Urine Protein Negative Urine Glucose (UA) Negative Urine Ketones 1+ Urine Blood 1+ Urine Nitrate Negative Urine Bilirubin Negative Urine Urobilinogen 1.0 Ur Leukocyte Esterase Negative Urine RBC Occasional Urine WBC None Ur Squamous Epith Cells None Urine Bacteria None DS: Diagnosis Discharge Diagnosis (1) Syncope: Status: Acute Code(s): R55 - Syncope and collapse (2) Acute encephalopathy: Status: Acute Code(s): G93.40 - Encephalopathy, unspecified (3) Dehydration: Status: Acute Code(s): E86.0 - Dehydration Discharge Plan Disposition Patient Disposition: Home, Self-Care Condition: Fair Follow up Plan Follow up with: Darrin Braxton MD [Primary Care Provider] - 03/03/24 (Please call for your follow up appt. ) Prescriptions/Medication Reconciliation: New aspirin 81 mg capsule 81 mg PO DAILY Qty: 30 0RF clopidogrel 75 mg tablet 75 mg PO DAILY Qty: 30 0RF Continued omeprazole 20 mg capsule,delayed release(DR/EC) 20 mg PO DAILY rosuvastatin 10 mg tablet 10 mg PO DAILY Patient Comments: TAKE 1 TABLET BY MOUTH ONCE DAILY sertraline [Zoloft] 25 mg tablet 25 mg PO DAILY allopurinol [Zyloprim] 100 mg tablet 100 mg PO DAILY Patient Comments: TAKE 1 TABLET BY MOUTH ONCE DAILY acetaminophen 500 mg tablet 500 mg PO Q6H PRN (Reason: fever) Qty: 30 3RF ibuprofen 800 mg tablet 800 mg PO Q8H PRN (Reason: Pain, Mild) Qty: 30 3RF meclizine 25 mg tablet 25 mg PO TID PRN (Reason: Dizziness Or Vertigo) Patient Comments: TAKE 1 TABLET BY MOUTH THREE TIMES DAILY NEEDED Problem Reconciliation Problems Reviewed?: Yes Patient Discharge Instructions ACTIVITY: Continue current activity Additional Instructions: Patient needs a 2 week cardiac event monitor to be placed at time of discharge. Patient Instructions: DI for Syncope in Adults (Fainting), DI for Encephalopathy Providers Primary Care Provider: Darrin Braxton Admit Provider: Bryant Loza Attending Provider: Tiago Bowser
[2024-02-23] MEDS: CLOPIDOGREL 75MG TAB 75 MG PO (10:14)
[2024-02-23] MEDS: ASPIRIN EC 81MG TABLET 81 MG PO (10:14)
--- NOTE | 2024-02-25 15:06 | CARE MANAGER ---
Patient states she is doing well. She is taking her new medications and has an appointment on the with Dr. Braxton. She is wearing a holter monitor and will mail it back on the when she is finished with it. She denies any questions or concerns. RICHIE Li
== END 2024-02-23 10:30 | disposition home or self-care (01) ==
LOC: ER 16:38 → 2ND 17:24
PROVIDERS: Admitting Provider Internal Medicine Adolescent Medicine; Emergency Provider Student in an Organized Health Care Education/Training Program; PCP Family Medicine; Visit Provider Family Medicine
DX: R55 Syncope and collapse (principal); G93.40 Encephalopathy, unspecified; E86.0 Dehydration; Z79.899 Other long term (current) drug therapy
CPT/HCPCS: 36415; 70450; 80048; 80053; 81001; 82550; 82803; 83735; 84443; 84484; 85025; 85378; 93005; 93270; 99285; G0378; J7120

== ENCOUNTER 2025-05-07 11:01 | Outpatient (CLI) | payer MEDICARE, BC, SELFPAY ==
--- OUTSIDE RECORDS SUMMARY | 2024-12-10 12:15 | XMS_ITS ---
Author Organization [facility] Address [address] [facility] [address] [place] [id number] Care Team Providers Care Jd Edwards Name Role Phone Yani Braxton Primary Care Provider Katie Glass Unavailable [phone] Allergies Allergen (clinical drug ingredient) Drug/Non Drug Allergy documented on EMR Reaction Allergy Type Onset Date Status sulfamethoxazole / trimethoprim Bactrim slight rash Drug Allergy Active cefaclor Cefaclor hives Drug Allergy Active clarithromycin Clarithromycin Unknown Drug Allergy Active Cyclobenzaprine HCl Unknown Drug Allergy Active nabumetone Relafen DS Unknown Drug Allergy Activ e Dye, Yellow Unknown Drug Allergy Activ e Penicillin passed out Drug Allergy Activ e Results Component Value Reference Range Notes CBC Fingerstick (in house) Reviewed date:12/10/2024 04:21:46 PM Interpretation: Performing Lab: Notes/Report: wbc 10.8 3.5 - 10 lym 19.6% 15 - 50 mid 5.9% 2 - 15 gran 74.5% 35 - 80 rbc 4.20 3.5 - 5.5 hgb 12.2 11.5 - 16.5 hct 37.1 35 - 55 mcv 88.4 75 - 100 mch 29.1 25 - 35 mchc 33.0 31 - 38 plat 322 100 - 400 REASON FOR VISIT sore throat, ears hurting,dizzy spells Medications Medication SIG (Take, Route, Frequency, Duration) Notes Start Date End Date Status Wonnwtkvn-Znuaiiir-AQ 30-2-10 MG/5ML 5-10 ml Orally 4 times a day, prn 12/10/2024 Active Zithromax Z-Hira 250 MG 2 pills first day then one daily for 4 days orally as directed; Duration: 5 days 12/10/2024 Activ e Ondansetron 4 MG 1 tablet on the tong ue and allow to dissolve Orally q8h prn 11/02/2024 Active Meclizine HCl 25 MG 1 tablet as needed O rally every 12 hrs prn Active Crestor 10 MG 1 tab(s) orally once a day; Duration: 90 days Active Sertraline HCl 25 MG 1 tab(s) orally onc e a day; Duration: 90 days Active Allopurinol 100 MG 1 tab(s) orally once a day; Duration: 90 days Active Omeprazole 20 MG 1 cap orally once a day; Duration: 90 days Active Nasacort Allergy 24HR 55 MCG/ACT 2 spray(s) intranasally once a day; Duration: 30 days Active Ibuprofen 800 MG 1 tab(s) orally thre e times a day as needed Active Phentermine HCl 30 MG 1 capsule Orally O nce a day 10/06/2024 Active Caltrate 600+D Plus Minerals 600-800 MG-UNIT 1 tablet Orally Twice a day; Duration: 30 day(s) Active Vital Signs Blood pressure systolic 130 mm Hg 12/11/19 25 Blood pressure diastolic 80 mm Hg 025 Heart Rate 73 /min 12/10/2024 Height 62 in 12/10/2024 Weight 236.8 lbs 12/10/2024 BMI 43.31 kg/m2 12/10/2024 Encounters Encounter Location Date Provider Diagnosis [facility] [address] [id number] 12/10/2024 Katie Glass Acute URI J06.9 Assessments Encounter Date Diagnosis (ICD Code) Assessment Notes Treatment Notes Treatment Clinical Notes Section Notes 12/10/2024 Acute URI (ICD-10 - J06.9) Plan Of Treatment Medication Medication Name Sig Start Date Stop Date Notes Baaindfib-Fzzguvrz-OK 30-2-1 0 MG/5ML 5-10 ml Orally 4 times a day, prn 12/10/2024 Zithromax Z-Hira 250 MG 2 pills first day then one daily for 4 days orally as directed; Duration: 5 days 12/10/2024 Next Appt Details Follow Up: prn, Reason: Provider Name:Katie Moon y, 05/07/2025 10:15:00 AM, [address], [address], [place], [phone], Provider Name:Yani Brody et, 06/22/2025 09:45:00 AM, [address], [address], [place], [phone], Progress Notes * STEPHAN ROTHDOB:1950 ([age] yo F)Acc No.[id number]:12/10/2024 Progress Notes Patient: STEPHAN ERAZO Provider: RORY Junior :1950 A ge:74 Y S ex:Female Date:12/10/2024 Address:[address] [place] [address] ARVIND Yang [id number] Pcp:Yani Braxton Subjective: * Chief Complaints: * 1 . Sore throat, ears hurting,dizzy spells. * HPI: E NT/respiratory: 74 year old female presents with c/o cough P t complains of greenish yellow sputum production cough for 2 days. Associated with sinus pressure, nasal congestion, ear pain and sore throat. Denies : Fever. D enies : body aches. * ROS: D ERMATOLOGY: no R christin. n o H jackelyn. G ASTROENTEROLOGY: no N ausea. n o V omiting. U ROLOGY: no D ifficulty urinating. n o B lood in urine. * Medical History: S easonal allergies, Hyperlipidemia, Benign hematuria, Glucose intolerance, Anxiety, ductal carcinoma left breast, Dx: 2010. * Surgical History: C holecystectomy , Colonoscopy , Lumpectomy 12/25/2010, Mole Removal on Back 12/2011, LT Breast Biopsy @ [facility] -results negative 10/06/2012, Under Arm and Eye Biopsy 01/2014, RT Cataract Removal - Dr. Henrique Lee 04/23/2017, D&C 02/2024. * Hospitalization/Major Diagno stic Procedure: F - [facility] 09/06/2017, [facility] - Syncope 02/2024. * Family History: F ather: , with colon CA 2004, diagnosed with Hypertension. M other: alive, diagnosed with Hypertension. P aternal Grand Father: . P aternal Grand Mother: . M aternal Grand Father: . M aternal Grand Mother: . 3 brother(s) . 1 son(s) , 1 daughter(s) . . * Social History: C URRENT TOBACCO USE S moking Status: Patient does NOT smoke. C affeine: no. Exercise: no. Home smoke detector use: yes. Marital Status: . New since last visit: none. Past smoking status: no, Smoking status: Does not smoke. Recreational drug use: no. Alcohol: no. Sexually active: yes. * Medications: T aking Caltrate 600+D Plus Minerals 600-800 MG-UNIT Tablet Chewable 1 tablet Orally Twice a day , Taking Phentermine HCl 30 MG Capsule 1 capsule Orally Once a day , Taking Ibuprofen 800 MG Tablet 1 tab(s) orally three times a day as needed , Taking Omeprazole 20 MG Capsule Delayed Release 1 cap orally once a day , Taking Nasacort Allergy 24HR 55 MCG/ACT Aerosol 2 spray(s) intranasally once a day , Taking Sertraline HCl 25 MG Tablet 1 tab(s) orally once a day , Taking Allopurinol 100 MG Tablet 1 tab(s) orally once a day , Taking Crestor 10 MG Tablet 1 tab(s) orally once a day , Taking Ondansetron 4 MG Tablet Disintegrating 1 tablet on the tongue and allow to dissolve Orally q8h prn , Taking Meclizine HCl 25 MG Tablet 1 tablet as needed Orally every 12 hrs prn , Medication List reviewed and reconciled with the patient * Allergies: C larithromycin, Relafen DS, Cyclobenzaprine HCl, Bactrim: slight rash, Cefaclor: hives, Penicillin: passed out, Dye, Yellow. Objective: * Vitals: W t:236.8, Temp:98.1, BP:130/80, HR:73, O2 Sat:99% on RA, Nurse:tonya, Ht: 62, BMI:43.31. * Examination: E NT/Respiratory: General Appearance: N AD. E ars: a uditory canals normal bilaterally, right TM with effusion, left TM normal, no erythema. N ose : turbinates red, congested. S inuses : non tender bilaterally. O ral cavity : erythema without exudate on pharynx. N per : n o cervical lymphadenopathy. H eart : R RR, normal S1 S2, no murmurs. L ungs: c lear to auscultation bilaterally. Assessment: * Assessment: 1. Rajani haider URI - J06.9 (Primary) Plan: * Treatment: Value Reference Range w bc 10.8 3.5 - 10 * l ym 19.6% 15 - 50 * m id 5.9% 2 - 15 * g ran 74.5% 35 - 80 * r bc 4.20 3.5 - 5.5 * h gb 12.2 11.5 - 16.5 * h ct 37.1 35 - 55 * m cv 88.4 75 - 100 * m ch 29.1 25 - 35 * m chc 33.0 31 - 38 * p lat 322 100 - 400 * Ilene Barahona 12/10/2024 4:21:40 PM > , Provider reviewed results while patient in office. * Procedure Codes: G 2211 Complex e/[place], [address] [place], [address] CAPILLARY BLOOD DRAW, [id number] CBC WITH AUTO DIFF, 3075F SYST BP GE 130 - 139MM HG, 3079F DIAST BP 80-89 MM HG * Follow Up: p rn * Images: Billing Information: * Visit Code: 65338 Office Visit, Est Pt., Level 3. * Procedure Codes: G2211 Complex e/[place]. [address] [place]. [address] CAPILLARY BLOOD DRAW. 95218 CBC WITH AUTO DIFF. 3075F SYST BP GE 130 - 139MM HG. 3079F DIAST BP 80-89 MM HG. * Electronic signature of RORY Kate on 05/07/2025 at 11:08 AM EDT Sign off status: Pending * Provider: RORY Junior Date: 0 12/10/2024 Generated for Vargas gooden/Ankush/eTransmitting on: 0 05/07/2025 11:08 AM EDT History and Physical Notes * HPI (History of Present Illness) Category Sub-Category Detail Notes Category Not es ENT/respiratory cough Pt complains of greenish yellow sputum production cough for 2 days. Associated with sinus pressure, nasal congestion, ear pain and sore throat Fever body aches Examination Category Sub-Category Detail Notes Category Not es ENT/Respiratory Oral cavity : erythema without exudate on pharynx Sinuses : non tender bilateral ly Ears: auditory canals norm al bilaterally, right TM with effusion, left TM normal, no erythema Neck : no cervical lymphade nopathy Heart : RRR, normal S1 S2, n o murmurs Lungs: clear to auscultatio n bilaterally General Appearance: NAD Nose : turbinates red, eren ested
--- OUTSIDE RECORDS SUMMARY | 2024-12-30 06:15 | XMS_ITS ---
Author Organization [facility] Address [address] [facility] [address] [place] [id number] Care Team Providers Care Revenue Audit Clerk Name Role Phone Yani Braxton Primary Care Provider Katie Glass Unavailable [phone] Allergies Allergen (clinical drug ingredient) Drug/Non Drug [...] Range Notes CBC Fingerstick (in house) Reviewed date:12/30/2024 01:10:32 PM Interpretation: Performing Lab: Notes/Report: wbc 8.2 3.5 - 10 lym 19.0% 15 - 50 mid 5.6% 2 - 15 gran 75.4 35 - 80 rbc 4.51 3.5 - 5.5 hgb 13.2 11.5 - 16.5 hct 40.3 35 - 55 mcv 89.2 75 - 100 mch 29.2 25 - 35 mchc 32.7 31 - 38 plat 383 100 - 400 REASON FOR VISIT head, sinues, ears Medications Medication SIG (Take, Route, Frequency, Duration) Notes Start Date End Date Status Caltrate 600+D Plus Minerals 600-800 MG-UNIT 1 tablet Orally Twice a day; Duration: 30 day(s) Active Phentermine HCl 30 MG 1 capsule Orally O nce a day 10/06/2024 Active Medrol 4 MG as directed orally d aily; Duration: 6 days 12/30/2024 Active Ibuprofen 800 MG 1 tab(s) orally thre e times a day as needed Active Lmginifnf-Hirrcwbv-LD 30-2-10 MG/5ML 5-10 ml Orally 4 times a day, prn 12/10/2024 Active Ondansetron 4 MG 1 tablet on the tong ue and allow to dissolve Orally q8h prn 11/02/2024 Active Meclizine HCl 25 MG 1 tablet as needed O rally every 12 hrs prn Active Allopurinol 100 MG 1 tab(s) orally once a day; Duration: 90 days Active Crestor 10 MG 1 tab(s) orally once a day; Duration: 90 days Active Montelukast Sodium 10 MG 1 tablet Orally Once a day; Duration: 90 days 12/30/2024 Active Nasacort Allergy 24HR 55 MCG/ACT 2 spray(s) intranasally once a day; Duration: 30 days Active Sertraline HCl 25 MG 1 tab(s) orally onc e a day; Duration: 90 days Active Omeprazole 20 MG 1 cap orally once a day; Duration: 90 days Active Vital Signs Blood pressure systolic 140 mm Hg 12/31/19 25 Blood pressure diastolic 78 mm Hg 025 Heart Rate 71 /min 12/30/2024 Height 62 in 12/30/2024 Weight 233.6 lbs 12/30/2024 BMI 42.72 kg/m2 12/30/2024 Encounters Encounter Location Date Provider Diagnosis [facility] [facility] [address] [place] [id number] 12/30/2024 Katie Glass Acute URI J06.9 ; Ot her seasonal allergic rhinitis J30.2 and BMI 40.0-44.9, adult Z68.41 Assessments Encounter Date Diagnosis (ICD Code) Assessment Notes Treatment Notes Treatment Clinical Notes Section Notes 12/30/2024 Acute URI (ICD-10 - J06.9) 12/30/2024 Other seasonal allergic rhinitis (ICD-10 - J30.2) 12/30/2024 BMI 40.0-44.9, adult (ICD-10 - Z68.41) Plan Of Treatment Medication Medication Name Sig Start Date Stop Date Notes Medrol 4 MG as directed orally d aily; Duration: 6 days 12/30/2024 Montelukast Sodium 10 MG 1 tablet Orally Once a day; Duration: 90 days 12/30/2024 Next Appt Details Follow Up: prn, Reason: Provider Name:Katie Moon cassie, 05/07/2025 10:15:00 AM, [address], [place], [place], [id number], Provider Name:Yani Brody et, 06/22/2025 09:45:00 AM, [address], [address], [place], [place], [phone], Progress Notes * STEPHAN ROTHDOB:1950 ([age] yo F)Acc No.[id number]:12/30/2024 Progress Notes Patient: STEPHAN ERAZO Provider: RORY Junior :1950 A ge:74 Y S ex:Female Date:12/30/2024 Address:[address] [place] [address] [id number] Pcp:Yani Braxton Subjective: * Chief Complaints: * 1 . Head, sinues, ears. * HPI: E NT/respiratory: 74 year old female presents with c/o cough. c/o ear pain?bilateral, left more than right. Pt states she is having shooting pain in the left ear. Pt states she is taking Ibuprofen with some relief. Pt states she has a lot of sinus pain and pressure.? Denies : sore throat. D enies : Fever. * ROS: D ERMATOLOGY: no R christin. n o H jackelyn. G ASTROENTEROLOGY: no N ausea. n o V omiting. n o D iarrhea.? U ROLOGY: no D ifficulty urinating. n o B lood in urine. * Medical History: S easonal allergies, Hyperlipidemia, Benign hematuria, Glucose intolerance, Anxiety, ductal carcinoma left breast, Dx: 2010. * Surgical History: C holecystectomy , Colonoscopy , Lumpectomy 12/25/2010, Mole Removal on Back 12/2011, LT Breast Biopsy @ [facility] -results negative 10/06/2012, Under Arm and Eye Biopsy 01/2014, RT Cataract Removal - Dr. Henrique Lee 04/23/2017, D&C 02/2024. * Hospitalization/Major Diagno stic Procedure: F [facility]- [facility] 09/06/2017, [facility] - Syncope 02/2024. * Family History: F [...] needed Orally every 12 hrs prn , Taking Ezoipqmrj-Wdbeteud-NP 30-2-10 MG/5ML Syrup 5-10 ml Orally 4 times a day, prn , Discontinued Zithromax Z-Hira 250 MG Tablet 2 pills first day then one daily for 4 days orally as directed , Medication List reviewed and reconciled with the patient * Allergies: C larithromycin, Relafen DS, Cyclobenzaprine HCl, Bactrim: slight rash, Cefaclor: hives, Penicillin: passed out, Dye, Yellow. Objective: * Vitals: W t: 233.6, Temp: 98.2, BP: 140/78, HR: 71, Nurse: JEANNETTE, Ht: 62, BMI:42.72. * Examination: E NT/Respiratory: General Appearance: N AD. E ars: a uditory canals normal bilaterally, TM's WNL. N ose : turbinates red, congested. S inuses : tender maxillary sinuses bilaterally. O ral cavity : erythema without exudate on pharynx. N per : n o cervical lymphadenopathy. H eart : R RR, normal S1 S2, no murmurs. L ungs: c lear to auscultation bilaterally. Assessment: * Assessment: 1. A cute URI - J06.9 (Primary) 2 . O ther seasonal allergic rhinitis - J30.2 3 . B DE 40.0-44.9, adult - Z68.41 Plan: * Treatment: Value Reference Range w bc 8.2 3.5 - 10 * l ym 19.0% 15 - 50 * m id 5.6% 2 - 15 * g ran 75.4 35 - 80 * r bc 4.51 3.5 - 5.5 * h gb 13.2 11.5 - 16.5 * h ct 40.3 35 - 55 * m cv 89.2 75 - 100 * m ch 29.2 25 - 35 * m chc 32.7 31 - 38 * p lat 383 100 - 400 * Cheri Lewis 12/30/2024 10 :34:56 AM > Provider reviewed results while patient in office.Katie Glass 12/30/2024 1:10:26 PM > 2.?Other seasonal allergic rhinitis? Start Montelukast Sodium Tablet, 10 MG, 1 tablet, Orally, Once a day, 90 days, 90 Tablet, Refills 3.?? * Procedure Codes: G 2211 Complex e/[place], [address] CBC WITH AUTO DIFF, 80187 CAPILLARY BLOOD DRAW, 3077F SYST BP = 140 MM HG6 IT, 3078F DIAST BP < 80 MM HG * Follow Up: p rn * Images: Billing Information: * Visit Code: 39987 Office Visit, Est Pt., Level 3. * Procedure Codes: G2211 Complex e/[place]. [address] CBC WITH AUTO DIFF. 29471 CAPILLARY BLOOD DRAW. 3077F SYST BP = 140 MM HG6 IT. 3078F DIAST BP < 80 MM HG. * Electronic signature of RORY Kate on 05/07/2025 at 11:06 AM EDT Sign off status: Pending * Provider: RORY Junior Date: 0 12/30/2024 Generated for Printi ng/Faxing/eTransmitting on: 0 05/07/2025 11:06 AM EDT History and Physical Notes * HPI (History of Present Illness) Category Sub-Category Detail Notes Category Not es ENT/respiratory sore throat ear pain bilateral, left more than right. Pt states she is having shooting pain in the left ear. Pt states she is taking Ibuprofen with some relief. Pt states she has a lot of sinus pain and pressure cough Fever Examination Category Sub-Category Detail Notes Category Not es ENT/Respiratory Oral cavity : erythema without exudate on pharynx Sinuses : tender maxillary sin uses bilaterally Ears: auditory canals norm al bilaterally, TM's WNL Neck : no cervical lymphade nopathy Heart : RRR, normal S1 S2, n o murmurs Lungs: clear to auscultatio n bilaterally General Appearance: NAD Nose : turbinates red, eren ested
--- OUTSIDE RECORDS SUMMARY | 2025-04-13 12:00 | XMS_ITS ---
Author [facility] Address 1210 [facility] [address] [place] [phone] Care Team Providers Care Optician Name Role Phone Yani Braxton Primary Care Provider Allergies Allergen (clinical drug ingredient) Drug/Non Drug [...] Penicillin passed out Drug Allergy Activ e REASON FOR VISIT Back and Leg Pain, Ear Issues Medications Medication SIG (Take, Route, Frequency, Duration) Notes Start Date End Date Status Nasacort Allergy 24HR 55 MCG/ACT 2 spray(s) intranasally once a day Active Montelukast Sodium 10 MG 1 tablet Orally Once a day 12/30/2024 Active Ibuprofen 800 MG 1 tab(s) orally thre e times a day as needed Active Phentermine HCl 30 MG 1 capsule Orally O nce a day 10/06/2024 Not-Taking Caltrate 600+D Plus Minerals 600-800 MG-UNIT 1 tablet Orally Twice a day; Duration: 30 day(s) Active Kepdllfoa-Cgxxflgb-MG 30-2-10 MG/5ML 5-10 ml Orally 4 times a day, prn 12/10/2024 Not-Taking Medrol 4 MG as directed Orally 04/13/2025 Active Crestor 10 MG 1 tab(s) orally once a day; Duration: 90 days Active Omeprazole 20 MG 1 cap orally once a day; Duration: 90 days Active Medrol 4 MG as directed orally daily; Duration: 6 days 12/30/2024 Not-Taki ng Meclizine HCl 25 MG 1 tablet as needed Orally every 12 hrs prn Not-Taki ng Ondansetron 4 MG 1 tablet on the tong ue and allow to dissolve Orally q8h prn 11/02/2024 Not-Taking Allopurinol 100 MG 1 tab(s) orally once a day; Duration: 90 days Active Sertraline HCl 25 MG 1 tab(s) orally onc e a day; Duration: 90 days Active Problems Problem Type SNOMED Code ICD Code Onset Dates Problem Status W/U Status Risk Notes Problem Sciatica (M54.30) Active confirmed Problem Seasonal allergy (431189369) Seasonal allergies (J30.2) Active confirmed Vital Signs Weight 232.4 lbs 04/13/2025 Blood pressure systolic 130 mm Hg 04/13/20 25 Blood pressure diastolic 62 mm Hg 025 Heart Rate 79 /min 04/13/2025 Height 62 in 04/13/2025 BMI 42.5 kg/m2 04/13/2025 Encounters Encounter Location Date Provider Diagnosis [facility] [address] [facility] [address] [place] [address], [place] [phone] 04/13/2025 R Hitesh Braxton Sciatica M54.30 ; Seasonal allergies J30.2 ; Gastroesophageal reflux disease without esophagitis K21.9 and Hyperlipidemia E78.5 Assessments Encounter Date Diagnosis (ICD Code) Assessment Notes Treatment Notes Treatment Clinical Notes Section Notes 04/13/2025 Sciatica (ICD-10 - M54.30) 04/13/2025 Seasonal allergies (ICD-10 - J30.2) 04/13/2025 Gastroesophageal reflux disease without esophagitis (ICD-10 - K21.9) 04/13/2025 Hyperlipidemia (ICD-10 - E78.5) Plan Of Treatment Medication Medication Name Sig Start Date Stop Date Notes Nasacort Allergy 24HR 55 MCG/ACT 2 spray(s) intranasally once a day Montelukast Sodium 10 MG 1 tablet Orally Once a day 2024 Medrol 4 MG as directed Orally 04/13/2025 Crestor 10 MG 1 tab(s) orally once a day; Duration: 90 days Omeprazole 20 MG 1 cap orally once a day; Duration: 90 days Next Appt Details Follow Up: prn, Reason: Provider Name:Katie matthews, 05/07/2025 10:15:00 AM, [address] [facility] [address], [place], [place], [id number], Provider Name:Yani Proctor Ronn nate, 06/22/2025 09:45:00 AM, [address] [facility] [address] [facility], [address], [place], [place], [id number], Progress Notes * STEPHAN ROTHDOB:1950 ([age] yo F)Acc No.[id number]:04/13/2025 Progress Notes Patient: STEPHAN ERAZO Provider: Yani Braxton M.D. :1950 A ge:75 Y S ex:Female Date:04/13/2025 Address:[address] [place] [address] [id number] Subjective: * Chief Complaints: * 1 . Back and Leg Pain, Ear Issues. * HPI: E NT/respiratory: She presents with complaints of increasing head and sinus congestion over the past week. She has noticed some irritation of her throat and some discomfort in her right ear. No fever. Drainage is mostly clear. 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 She complains of some low back pain on the left side which radiates down the left leg. She recalls no specific injury. * ROS: D ERMATOLOGY: no R christin. [...] on Back 12/2011, LT Breast Biopsy @ [facility] -results negative 10/06/2012, Under Arm and Eye Biopsy 01/2014, RT Cataract Removal - Dr. Henrique Lee 04/23/2017, D&C 02/2024. * Hospitalization/Major Diagno stic Procedure: F [facility]- [facility] 09/06/2017, [facility] - Syncope 02/2024. * Family [...] tablet Orally Twice a day , Taking Ibuprofen 800 MG [...] tab(s) orally once a day , Taking Montelukast Sodium 10 MG Tablet 1 tablet Orally Once a day , Not-Taking Phentermine HCl 30 MG Capsule 1 capsule Orally Once a day , Not- Taking Ondansetron 4 MG Tablet Disintegrating 1 tablet on the tongue and allow to dissolve Orally q8h prn , Not-Taking Meclizine HCl 25 MG Tablet 1 tablet as needed Orally every 12 hrs prn , Not-Taking Nqvlvojdk-Tirpjxcl-CI 30-2-10 MG/5ML Syrup 5-10 ml Orally 4 times a day, prn , Not-Taking Medrol 4 MG Tablet Therapy Pack as directed orally daily , Medication List reviewed and reconciled with the patient * Allergies: C larithromycin, Relafen DS, Cyclobenzaprine HCl, Bactrim: slight rash, Cefaclor: hives, Penicillin: passed out, Dye, Yellow. Objective: * Vitals: W t: 232.4, Temp: 98.3, BP: 130/62, HR: 79, Nurse: pe, Ht: 62, BMI:42.5. * Examination: G eneral Examination: General Appearance: N AD. H EENT: R ight TM with diminished light reflex but no erythema. Left TM is normal. Mild nasal congestion.?Oral cavity: M ild erythema of throat. H eart: R SR. L ungs: c lear to auscultation. B ack: I ncrease in normal lumbar lordosis. There is mild tenderness in the left SI area. Strength in lower extremities is normal. Gait is normal.. ? Assessment: * Assessment: 1. S ciatica - M54.30 (Primary) 2 . S easonal allergies - J30.2 ?3. G astroesophageal reflux disease without esophagitis - K21.9 4 . H yperlipidemia - E78.5 Plan: * Treatment: 2. S easonal allergies Continue Montelukast Sodium Tablet, 10 MG, 1 tablet, Orally, Once a day; C ontinue Nasacort Allergy 24HR Aerosol, 55 MCG/ACT, 2 spray(s), intranasally, once a day. 3. G astroesophageal reflux disease without esophagitis Refill Omeprazole Capsule Delayed Release, 20 MG, 1 cap, orally, once a day, 90 days, 90 Capsule, Refills 1. 4. H yperlipidemia Refill Crestor Tablet, 10 MG, 1 tab(s), orally, once a day, 90 days, 90 Tablet, Refills 1. ? * Procedure Codes: G 2211 Complex e/m visit add on, 1036F TOBACCO NON-USER, G8783 BP SCR PRFRM RCMDD DEFIND SCR INTVL, G8752 MOST RECENT SYSTOLIC BP < 140MM HG, G8754 MOST RECENT DIASTOLIC BP < 90MM HG * Follow Up: p rn * Images: Billing Information: * Visit Code: 31377 Office Visit, Est Pt., Level 3. * Procedure Codes: G2211 Complex e/m visit add on. 1036F TOBACCO NON-USER. G8783 BP SCR PRFRM RCMDD DEFIND SCR INTVL. G8752 MOST RECENT SYSTOLIC BP < 140MM HG. G8754 MOST RECENT DIASTOLIC BP < 90MM HG. * Electronic signature of Yani Braxton MD on 05/07/2025 at 11:07 AM EDT Sign off status: Pending * Provider: Yani Braxton M.D. Date: 04/13/2025 Generated for Vargas gooden/Ankush/Nateransmitting on: 05/07/2025 11:07 AM EDT History and Physical Notes * Examination Category Sub-Category Detail Notes Category Not es General Examination HEENT: Right TM wit h diminished light reflex but no erythema. Left TM is normal. Mild nasal congestion Heart: RSR Lungs: clear to auscultatio n General Appearance: NAD Oral cavity: Mild erythema of thr oat Back: Increase in normal l umbar lordosis. There is mild tenderness in the left SI area. Strength in lower extremities is normal. Gait is normal.
--- OUTSIDE RECORDS SUMMARY | 2025-04-23 10:30 | XMS_ITS ---
Author [facility] Address 1210 [facility] [address] [place] [phone] Care Team Providers Care Orthopaedic Doctor Name Role Phone Yani Braxton Primary Care Provider Katie Glass Unavailable [phone] Allergies Allergen (clinical drug ingredient) Drug/Non Drug [...] e Results Component Value Reference Range Notes Rapid Strep- Inhouse Reviewed date:04/23/2025 05:02:40 PM Interpretation:neg Performing Lab: Notes/Report: neg strep test neg CBC Fingerstick (in house) Reviewed date:04/23/2025 05:02:40 PM Interpretation: Performing Lab: Notes/Report: wbc 11.9 3.5 - 10 lym 28.2 15 - 50 mid 7.3 2 - 15 gran 64.5 35 - 80 rbc 4.60 3.5 - 5.5 hgb 13.3 11.5 - 16.5 hct 40.6 35 - 55 mcv 88.3 75 - 100 mch 28.9 25 - 35 mchc 32.7 31 - 38 plat 219 100 - 400 REASON FOR VISIT ear ache, sore throat, headache, places on tongue Medications Medication SIG (Take, Route, Frequency, Duration) Notes Start Date End Date Status Sertraline HCl 25 MG 1 tab(s) orally onc e a day; Duration: 90 days Active Allopurinol 100 MG 1 tab(s) orally once a day; Duration: 90 days Active Omeprazole 20 MG 1 cap orally once a day; Duration: 90 days Active Crestor 10 MG 1 tab(s) orally once a day; Duration: 90 days Active Ibuprofen 800 MG 1 tab(s) orally thre e times a day as needed Active Zithromax Z-Hira 250 MG 2 pills first day then one daily for 4 days orally as directed; Duration: 5 days 04/23/2025 Active Conmicubi-Dkgyoysl-XM 30-2-10 MG/5ML 5-10 ml Orally 4 times a day, prn 12/10/2024 Not-Taking Bromfed DM 2-30-10 MG/5ML 5-10 mL Orally four times a day, prn 04/23/2025 Active Medrol 4 MG as directed orally daily; Duration: 6 days 12/30/2024 Not-Taki ng Caltrate 600+D Plus Minerals 600-800 MG-UNIT 1 tablet Orally Twice a day; Duration: 30 day(s) Active Ondansetron 4 MG 1 tablet on the tong ue and allow to dissolve Orally q8h prn 11/02/2024 Not-Taking Meclizine HCl 25 MG 1 tablet as needed Orally every 12 hrs prn Not-Taki ng Montelukast Sodium 10 MG 1 tablet Orally Once a day 12/30/2024 Active Nasacort Allergy 24HR 55 MCG/ACT 2 spray(s) intranasally once a day Active Phentermine HCl 30 MG 1 capsule Orally O nce a day 10/06/2024 Not-Taking Medrol 4 MG as directed Orally 04/13/2025 Not-Taking Vital Signs Weight 231.2 lbs 04/23/2025 Blood pressure systolic 126 mm Hg 04/23/20 25 Blood pressure diastolic 82 mm Hg 025 Heart Rate 78 /min 04/23/2025 Height 62 in 04/23/2025 BMI 42.28 kg/m2 04/23/2025 Encounters Encounter Location Date Provider Diagnosis [facility] [address] [facility] [place] [id number] 04/23/2025 Katie Glass Acute URI J06.9 Assessments Encounter Date Diagnosis (ICD Code) Assessment Notes Treatment Notes Treatment Clinical Notes Section Notes 04/23/2025 Acute URI (ICD-10 - J06.9) Plan Of Treatment Medication Medication Name Sig Start Date Stop Date Notes Zithromax Z-Hira 250 MG 2 pills first day then one daily for 4 days orally as directed; Duration: 5 days 04/23/2025 Bromfed DM 2-30-10 MG/5ML 5-10 mL Orally four times a day, prn 04/23/2025 Next Appt Details Follow Up: prn, Reason: Provider Name:Katie amtthews, 05/07/2025 10:15:00 AM, [address], [place], [id number], Provider Name:Yani Doherty, 06/22/2025 09:45:00 AM, [address], [place], [place], [id number], Progress Notes * STEPHAN ROTHDOB:1950 (7 6 yo F)Acc No.[id number]:04/23/2025 Progress Notes Patient: STEPHAN ERAZO Provider: RORY Junior :1950 A ge:75 Y S ex:Female Date:04/23/2025 Address:[address] [place] [address] [id number] Pcp:Yani Braxton Subjective: * Chief Complaints: * 1 . Ear ache, sore throat, headache, places on tongue. * HPI: E NT/respiratory: 75 year old female presents with c/o sore throat P t sts her sore throat and cough developed today. c/o cough. c/o ear pain P t sts she has had ear pain for a couple of days now. c/o headache. * ROS: D ERMATOLOGY: no R christin. [...] on Back 12/2011, LT Breast Biopsy @ [facility] -results negative 10/06/2012, Under Arm and Eye Biopsy 01/2014, RT Cataract Removal - Dr. Henrique Lee 04/23/2017, D&C 02/2024. * Hospitalization/Major Diagno stic Procedure: F [facility]- [facility] 09/06/2017, [facility] - Syncope 02/2024. * Family [...] times a day as needed , Taking Sertraline HCl 25 MG Tablet 1 tab(s) orally once a day , Taking Allopurinol 100 MG Tablet 1 tab(s) orally once a day , Taking Omeprazole 20 MG Capsule Delayed Release 1 cap orally once a day , Taking Crestor 10 MG Tablet 1 tab(s) orally once a day , Taking Montelukast Sodium 10 MG Tablet 1 tablet Orally Once a day , Taking Nasacort Allergy 24HR 55 MCG/ACT Aerosol 2 spray(s) intranasally once a day , Not-Taking Medrol 4 MG Tablet Therapy Pack as directed Orally , Not-Taking Phentermine HCl 30 MG Capsule 1 capsule Orally Once a day , Not- Taking Ondansetron 4 MG Tablet Disintegrating 1 tablet on the tongue and allow to dissolve Orally q8h prn , Not-Taking Meclizine HCl 25 MG Tablet 1 tablet as needed Orally every 12 hrs prn , Not-Taking Mozmlbgbb-Ipslhhoy-SI 30-2-10 MG/5ML Syrup 5-10 ml Orally 4 times a day, prn , Not-Taking Medrol 4 MG Tablet Therapy Pack as directed orally daily , Medication List reviewed and reconciled with the patient * Allergies: C larithromycin, Relafen DS, Cyclobenzaprine HCl, Bactrim: slight rash, Cefaclor: hives, Penicillin: passed out, Dye, Yellow. Objective: * Vitals: W t: 231.2, Temp: 98.4, BP: 126/82, HR: 78, O2 Sat: 98% on RA, Nurse: elian, Ht: 62, BMI:42.28. * Examination: E NT/Respiratory: General Appearance: N AD. E ars: a uditory canals normal bilaterally, TM's WNL. N ose : t urbinates red, congested. S inuses : n on tender bilaterally. O ral cavity : e rythema without exudate on pharynx. N per : n o cervical lymphadenopathy. H eart : R RR, normal S1 S2, no murmurs. L ungs: c lear to auscultation bilaterally. Assessment: * Assessment: 1. Rajani haider URI - J06.9 (Primary) Plan: * Treatment: Value Reference Range s trep test neg * My Dewitt 04/23/2025 02:3 6:23 PM EDT > Provider reviewed results while patient in office. ?LAB: CBC Fingerstick (in house) (Collection Date & Time - 04/23/2025)* Value Reference Range w bc 11.9 3.5 - 10 * l ym 28.2 15 - 50 * m id 7.3 2 - 15 * g ran 64.5 35 - 80 * r bc 4.60 3.5 - 5.5 * h gb 13.3 11.5 - 16.5 * h ct 40.6 35 - 55 * m cv 88.3 75 - 100 * m ch 28.9 25 - 35 * m chc 32.7 31 - 38 * p lat 219 100 - 400 * My Dewitt 04/23/2025 03:0 5:30 PM EDT > Provider reviewed results while patient in office. * Procedure Codes: G 2211 Complex e/[place], [address] STREP A ASSAY W/OPTIC, Modifiers: QW , [address] CAPILLARY BLOOD DRAW, 14045 CBC WITH AUTO DIFF, 1036F TOBACCO NON-USER, G8783 BP SCR PRFRM RCMDD DEFIND SCR INTVL, G8752 MOST RECENT SYSTOLIC BP < 140MM HG, G8754 MOST RECENT DIASTOLIC BP < 90MM HG * Follow Up: p rn * Images: Billing Information: * Visit Code: 49917 Office Visit, Est Pt., Level 3. * Procedure Codes: G2211 Complex e/[place]. [address] STREP A ASSAY W/OPTIC. Modifiers: QW 10806 CAPILLARY BLOOD DRAW. 41817 CBC WITH AUTO DIFF. 1036F TOBACCO NON-USER. G8783 BP SCR PRFRM RCMDD DEFIND SCR INTVL. G8752 MOST RECENT SYSTOLIC BP < 140MM HG. G8754 MOST RECENT DIASTOLIC BP < 90MM HG. * Electronic signature of RORY Kate on 05/07/2025 at 11:07 AM EDT Sign off status: Pending * Provider: RORY Junior Date: 0 04/23/2025 Generated for Vargas gooden/Ankush/Pavanitting on: 0 05/07/2025 11:07 AM EDT History and Physical Notes * HPI (History of Present Illness) Category Sub-Category Detail Notes Category Not es ENT/respiratory sore throat Pt sts her sore throat and cough developed today ear pain Pt sts she has had e ar pain for a couple of days now cough headache Examination Category Sub-Category Detail Notes Category Not es ENT/Respiratory Oral cavity : erythema without exudate on pharynx Sinuses : non tender bilateral ly Ears: auditory canals norm al bilaterally, TM's WNL Neck : no cervical lymphade nopathy Heart : RRR, normal S1 S2, n o murmurs Lungs: clear to auscultatio n bilaterally General Appearance: NAD Nose : turbinates red, eern ested
--- OUTSIDE RECORDS SUMMARY | 2025-05-03 09:25 | XMS_ITS | Encounter Summary ---
Author Organization [facility] Address [address] [place] [address] Care Team Providers Care Administrative Executive Name Role Phone Darrin Braxton MD Primary Care Provider [phone]- [phone] Encounter Details Date Type Department Care Team (Late st Contact Info) Description 05/03/2025 9:25 AM EDT Ancillary Procedure [facility] [address], [address] [place] [address] Social History Tobacco Use Types Packs/Day Years Used Date Smoking Tobacco: Never Passive Smoke Exposure: Never Smokeless Tobacco: Never Alcohol Use Standard Drinks/Week Comments No 0 (1 standard drink = 0.6 oz pur e alcohol) Comments Unknown Sex and Gender Information Value Date Recorded Sex Assigned at Not on file Legal Sex Female 6:04 PM EDT Gender Identity Not on file Sexual Orientation Not on file documented as of this encounter Plan of Treatment Upcoming Encounters Date Type Department Care Team (Late st Contact Info) Description 02/11/2026 9:00 AM EDT Office Visit [facility] [address], [address] [place] [address] Thomas Lee MD [address] [address] documented as of this encounter Procedures Procedure Name Priority Date/Time Associated Diagnosis Comments OCT, RETINA - OU - BOTH EYES Routine 05/03/2025 9:51 AM EDT Glaucoma suspect of both eyes documented in this encounter Results * OCT, Retina - OU - Both Eyes (05/03/2025 9:51 AM EDT) Anatomical Region Laterality Modality Head Optical Coherenc e Tomography Narrative 05/03/2025 9:51 AM EDT Right Eye Quality was good. Scan locations included subfoveal. Findings include normal foveal contour. Left Eye Quality was good. Scan locations included subfoveal. Findings include normal foveal contour. Notes No fluid us Thomas Lee MD OPHTH TOMOGRAPHY Final Result documented in this encounter Visit Diagnoses Not on filedocumented in this encounter Additional Health Concerns Assessment Noted Time A fall risk assessment has been complete d for the patient 05/03/2025 9:31 AM EDT A Body Mass Index follow-up plan has been documented for the patient 05/03/2025 9:59 AM EDT documented as of this encounter Care Teams Administrative Executive Relationship Specialty Start Date End Date Darrin Braxton MD [address] [place] [id number] PCP - General 01/20/21 documented as of this encounter
--- OUTSIDE RECORDS SUMMARY | 2025-05-03 09:30 | XMS_ITS | Encounter Summary ---
Author Organization [facility] Address [address] [place] [address] Care Team Providers Care Stenographic Court Reporter Name Role Phone Darrin Braxton MD Primary Care Provider [phone]- [phone] Encounter Details Date Type Department Care Team (Latest Contact Info) Description 05/03/2025 9:30 AM EDT Office Visit [facility] [place] [address], [address] [place] [address] Thomas Lee MD [address] [place] [address] Glaucoma suspect of both eyes (Primary Dx); History of cataract extraction, unspecified laterality; S/P YAG capsulotomy, right; S/P YAG capsulotomy, left; Nonexudative age-related macular degeneration, bilateral, early dry stage; After cataract of both eyes not obscuring vision; Right posterior capsular opacification; Meibomian gland dysfunction (MGD) of upper and lower lids of both eyes Social History Tobacco Use Types Packs/Day Years Used Date Smoking Tobacco: Never Passive Smoke Exposure: Never Smokeless Tobacco: Never Tobacco Cessation:Counseling Given: Not Answered Alcohol Use Standard Drinks/Week Comments No 0 (1 standard drink = 0.6 oz pur e alcohol) Comments Unknown Sex and Gender Information Value Date Recorded Sex Assigned at Not on file Legal Sex Female 6:04 PM EDT Gender Identity Not on file Sexual Orientation Not on file documented as of this encounter Miscellaneous Notes * Progress Notes - Thomas Lee MD - 05/03/2025 9:30 AM EDT Subjective HPI 75-year-old woman Status Post (S/P) YAG Capsulotomy Right Eye (OD) 05/19/2021 and Status Post (S/P) Yag capsulotomy Left Eye (OS) 04/21/2021 She is Status Post (S/P) Cataract Extraction (CE)/Intraocular Lens (IOL) Right Eye (OD) April 23, 2017, and Cataract Extraction (CE) /Intraocular Lens (IOL) Left Eye (OS) May 28, 2017. She has a history as being a glaucoma suspect Max IOP 22 in each eye. Intraocular pressure that is somewhat borderline but she has relatively thick corneas, normal nerves and borderline visual dewitt. No family history of glaucoma but FH of AMD. Using artificial tears as needed States her eyes have been okay since last visit, can tell her right eye is a little bit more blurry. Does use eye drops, artificial tears 2x a day. Wears glasses that are around 9 months old, feels good about them. No issues or concerns Last edited by Thomas Lee MD on 05/03/2025 9:49 AM. ROS Positive for: Eyes Negative for: Constitutional, Gastrointestinal, Neurological, Skin, Genitourinary, Musculoskeletal,HENT, Endocrine, Cardiovascular, Respiratory, Psychiatric, Allergic/Imm, Heme/Lymph Last edited by Christopher Winter on 05/03/2025 9:23 AM. Objective Base Eye Exam Visual Acuity (Snellen - Linear) Right Left Dist cc 20/20 -3 20/20 -2 Correction: Glasses Tonometry (Tonopen, 9:36 AM) Right Left Pressure 18 16 Pupils Pupils Right PERRL Left PERRL Visual Dewitt (Counting fingers) Right Left Full Full Extraocular Movement Right Left Full, Ortho Full, Ortho Neuro/Psych Oriented x3: Yes Mood/Affect: Normal Dilation Both eyes: 1% Tropicamide @ 9:36 AM Slit Lamp and Fundus Exam Slit Lamp Exam Right Left Lids/Lashes MGD some collerettes MGD Conjunctiva/Sclera normal normal Cornea clear Inferotemporal area of epithelial irregularity, few PEE Anterior Chamber deep and quiet deep and quiet Iris normal pupil size and shape normal pupil size and shape Lens PCIOL - s/p YAG with clear axis. PCIOL -Yag open PC Vitreous clear clear Fundus Exam Right Left Disc no edema, no vascularization, good color (David 78 d Lens) no edema, no vascularization, good color (David 78 d Lens) C/D Ratio .2 .2 Macula Flat, drusen Flat, drusen Vessels 2/3 ratio of Arterioles/venules w/o tortuosity or abnormality 2/3 ratio of Arterioles/venules w/o tortuosity or abnormality Periphery flat and attached 360 degrees, reticular degeneration, few pigmented changes flat and attached 360 degrees, reticular degeneration, few pigmented changes Refraction Wearing Rx Sphere Cylinder Weeping Water Add Right -0.75 +0.25 098 +2.50 Left -0.50 +0.50 030 +2.50 Age: 9m Type: Bifocal Assessment/Plan Diagnoses and all orders for this visit: Glaucoma suspect of both eyes - OCT, Retina - OU - Both Eyes History of cataract extraction, unspecified laterality S/P YAG capsulotomy, right S/P YAG capsulotomy, left Nonexudative age-related macular degeneration, bilateral, early dry stage After cataract of both eyes not obscuring vision Right posterior capsular opacification Meibomian gland dysfunction (MGD) of upper and lower lids of both eyes Glaucoma suspect of both eyes She has had intraocular pressures that have been somewhat borderline but she does have thick corneas and no family history. Her nerves are reassuring and her visual dewitt and RNFL OCT have been normal Stable/normal HVF recently but ?nasal changes OS ?accurate. Continue observation RNFL previously full both eyes (OU) (avg 95/103) visual field (VF) previously without deficit Right Eye (OD) borderline Left Eye (OS) Intraocular Pressure 18/16 off drops Thick pachymetry (597/611) MEIBOMIAN GLAND DYSFUNCTION The nature of blepharitis was discussed with the patient Warm compresses as well as lid hygeine wasdiscussed with the patient. [place] 3 fatty acid supplements were discussed. Artificial tears four times per day on a set schedule, such as Refresh Advance, Systane balance or Retaine to help replace the oily layer of tears. Use preservative free tears if severe or tears needed more than four times per day. Possible need for oral doxycycline or similar discussed. Can use Tea tree oil foam (Oust) orOptase Tea Tree Oil (TTO) wipes or Cliradex wipes as well. After cataract of both eyes Status post (s/p) cataract extraction (CE)/ intraocular lens (IOL) both eyes (OU) Status Post Cataract Extraction (CE) /Intraocular Lens (IOL) both eyes (OU) Performed YAG left eye (OS) doing well with 20/20 Status post YAG capsulotomy Right Eye (OD) 05/19/21 Early Dry Macular degeneration both eyes (OU) Both parents had macular degeneration Few drusen in each macula Patient taking multivitamin, does not smoke Macular OCT no fluid VA 20/20-2 each eye with updated Mrx, given last visit NO CHARGE REFRACTION, done for diagnostic purposes only 9 months Dilated fundus exam (DFE), intraocular pressure (IOP) get RNFL macular oct Tobacco Use: Low Risk (05/03/2025) Patient History Smoking Tobacco Use: Never Smokeless Tobacco Use: Never Passive Exposure: Never The patient has been counseled on tobacco cessation: Not Applicable documented in this encounter Plan of Treatment Upcoming Encounters Date Type Department Care Team (Late st Contact Info) Description 02/11/2026 9:00 AM EDT Office Visit [facility] [place] [address] [place] [address] Thomas Lee MD [address] [facility] [address] [place] [address] documented as of this encounter Procedures [...] Result documented in this encounter Visit Diagnoses Diagnosis Glaucoma suspect of both eyes- Primary Unspecified preglaucoma History of cataract extraction, unspecified laterality S/P YAG capsulotomy, right S/P YAG capsulotomy, left Nonexudative age-related macular degeneration, bilateral, early dry stage After cataract of both eyes not obscuring vision Right posterior capsular opacification Unspecified after-cataract Meibomian gland dysfunction (MGD) of upper and lower lids of both eyes documented in this encounter Additional Health Concerns Assessment Noted Time A fall risk assessment has been complete d for the patient 05/03/2025 9:31 AM EDT A Body Mass Index follow-up plan has been documented for the patient 05/03/2025 9:59 AM EDT documented as of this encounter Care Teams Stenographic Court Reporter Relationship Specialty Start Date End Date Darrin Braxton MD [address] [place] [id number] PCP - General 01/20/21 documented as of this encounter
--- OUTSIDE RECORDS SUMMARY | 2025-05-07 11:07 | XMS_ITS ---
Author Organization Unknown Results OrderDate OrderTestName ResultName ResultDate Value Units Range AbnormalFlag ResultStatus ObservationNotes TestCode ResultCode DateRecorded AccessionNumber DiagnosticSectionCode DiagnosticSectionName Sequence Interpretation Cust om 04/11/2024 00:00:00 CBC Fingerstick (in house) [facility] 7267-86-67L61:00:00 389 100 - 400 Reviewed Cheri Lewis 04/11/2024 9:52:05 AM > , Provider reviewed results while patient in office.Tiago Bowser 04/11/2024 4:37:03 PM > CBC Fingerstick (in house) 04/11/2024 00:00: 00:00:00CBC Fingerstick (in house)[facility] 1160-78-61O77:00:0032.531 - 38ReCheri Zavala 04/11/2024 9:52:05 AM > , Provider reviewed results while patient in office.Tiago Bowser 04/11/2024 4:37:03 PM > Coding CBC Fingerstick (in house) 04/11/2024 00:00: 00:00:00CBC Fingerstick (in house)[facility] 8024-37-69U63:00:0029.425 - 35ReCheri Zavala 04/11/2024 9:52:05 AM > , Provider reviewed results while patient in office.Tiago Bowser 04/11/2024 4:37:03 PM > Coding CBC Fingerstick (in house) 04/11/2024 00:00:00004/11/2024 00:00:00CBC Fingerstick (in house)[facility] 6513-93-37V56:00:0090.475 - 100ReCheri Zavala 04/11/2024 9:52:05 AM > , Provider reviewed results while patient in office.Tiago Bowser T 04/11/2024 4:37:03 PM > Coding CBC Fingerstick (in house) 04/11/2024 00:00:00004/11/2024 00:00:00CBC Fingerstick (in house)hct 5646-97-12S65:00:0040.235 - 55ReCheri Zavala 04/11/2024 9:52:05 AM > , Provider reviewed results while patient in office.[place] 04/11/2024 4:37:03 PM > Coding CBC Fingerstick (in house) 04/11/2024 00:00: 00:00:00CBC Fingerstick (in house)hgb 3002-24-36E05:00:0013.011.5 - 16.5ReCheri Zavala 04/11/2024 9:52:05 AM > , Provider reviewed results while patient in office.Lai Bowserian T 04/11/2024 4:37:03 PM > Coding CBC Fingerstick (in house) 04/11/2024 00:00: 00:00:00CBC Fingerstick (in house)rbc 4839-98-64U23:00:004.453.5 - 5.5ReCheri Zavala 04/11/2024 9:52:05 AM > , Provider reviewed results while patient in office.NielsTiago Leonard 04/11/2024 4:37:03 PM > Coding CBC Fingerstick (in house) 04/11/2024 00:00:00004/11/2024 00:00:00CBC Fingerstick (in house)gran 2710-88-08J67:00:0075.9%35 - 80ReCheri Zavala 04/11/2024 9:52:05 AM > , Provider reviewed results while patient in office.Tiago Bowser 04/11/2024 4:37:03 PM > Coding CBC Fingerstick (in house) 04/11/2024 00:00:00004/11/2024 00:00:00CBC Fingerstick (in house)mid 9295-70-75G22:00:004.7%2 - 15RevieweCheri Mcrae 04/11/2024 9:52:05 AM > , Provider reviewed results while patient in office.Tiago Bowser T 04/11/2024 4:37:03 PM > Coding CBC Fingerstick (in house) 04/11/2024 00:00:00004/11/2024 00:00:00CBC Fingerstick (in house)lym 7847-36-58Y68:00:0019.4%15 - 50RevieweCheri Mcrae 04/11/2024 9:52:05 AM > , Provider reviewed results while patient in office.Tiago Bowser 04/11/2024 4:37:03 PM > Coding CBC Fingerstick (in house) 04/11/2024 00:00:00004/11/2024 00:00:00CBC Fingerstick (in house)wbc 5034-87-34W25:00:008.33.5 - 10RevieweCheri Mcrae 04/11/2024 9:52:05 AM > , Provider reviewed results while patient in office.Tiago Bowser T 04/11/2024 4:37:03 PM > Coding CBC Fingerstick (in house) 04/11/2024 00:00:00005/05/2024 00:00:00Covid test (in house)Result: 3660-18-33A97:00:00negReSharon Phillips 05/05/2024 11:00:19 AM > results reviewed w/ pt in office Coding Covid test (in house) 05/05/2024 00:00:00005/05/2024 00:00:00CBC Fingerstick (in house)plat 0398-97-82T57:00:12388900 - 400ReSharon Phillips 05/05/2024 10:29:44 AM > results reviewed w/ pt in office Coding CBC Fingerstick (in house) 05/05/2024 00:00: 00:00:00CBC Fingerstick (in house)[facility] 2059-83-58D61:00:0032.331 - 38RevieweSharon Lucio 05/05/2024 10:29:44 AM > results reviewed w/ pt in office Coding CBC Fingerstick (in house) 05/05/2024 00:00: 00:00:00CBC Fingerstick (in house)[facility] 4901-90-63F10:00:0029.625 - 35ReviewedGSharon chun 05/05/2024 10:29:44 AM > results reviewed w/ pt in office Coding CBC Fingerstick (in house) 05/05/2024 00:00: 00:00:00CBC Fingerstick (in house)mcv 6933-03-66Z17:00:0091.575 - 100ReviewedGSharon chun 05/05/2024 10:29:44 AM > results reviewed w/ pt in office Coding CBC Fingerstick (in house) 05/05/2024 00:00: 00:00:00CBC Fingerstick (in house)hct 3086-65-50I42:00:0040.635 - 55RevieweSharon Lucio 05/05/2024 10:29:44 AM > results reviewed w/ pt in office Coding CBC Fingerstick (in house) 05/05/2024 00:00: 00:00:00CBC Fingerstick (in house)hgb 7777-00-84T71:00:0013.111.5 - 16.5ReviewedGSharon chun 05/05/2024 10:29:44 AM > results reviewed w/ pt in office Coding CBC Fingerstick (in house) 05/05/2024 00:00: 00:00:00CBC Fingerstick (in house)rbc 2273-52-17G29:00:004.433.5 - 5.5RevieweSharon Lucio 05/05/2024 10:29:44 AM > results reviewed w/ pt in office Coding CBC Fingerstick (in house) 05/05/2024 00:00:00005/05/2024 00:00:00CBC Fingerstick (in house)gran 0659-34-64F88:00:0069.435 - 80ReSharon Phillips 05/05/2024 10:29:44 AM > results reviewed w/ pt in office Coding CBC Fingerstick (in house) 05/05/2024 00:00: 00:00:00CBC Fingerstick (in house)mid 7167-95-27J48:00:006.42 - 15ReSharon Phillips 05/05/2024 10:29:44 AM > results reviewed w/ pt in office Coding CBC Fingerstick (in house) 05/05/2024 00:00: 00:00:00CBC Fingerstick (in house)lym 7684-23-54S14:00:0024.115 - 50ReSharon Phillips 05/05/2024 10:29:44 AM > results reviewed w/ pt in office Coding CBC Fingerstick (in house) 05/05/2024 00:00: 00:00:00CBC Fingerstick (in house)wbc 2448-65-56G49:00:008.43.5 - 10RevieweSharon Lucio 05/05/2024 10:29:44 AM > results reviewed w/ pt in office Coding CBC Fingerstick (in house) 05/05/2024 00:00: 00:00:00CBC Fingerstick (in house)plat 3204-88-70M85:00:47792645 - 400ReSharon Phillips 06/02/2024 3:54:13 PM > results reviewed w/ pt in office Coding CBC Fingerstick (in house) 06/02/2024 00:00: 00:00:00[facility] 25[facility]-26-98J69:00:0032.031 - 38RevieweSharon Lucio 06/02/2024 3:54:13 PM > results reviewed w/ pt in office Coding CBC Fingerstick (in house) 06/02/2024 00:00: 00:00:00CBC Fingerstick (in house)mch 5559-77-62N64:00:0029.325 - 35RevieweSharon Lucio 06/02/2024 3:54:13 PM > results reviewed w/ pt in office Coding CBC Fingerstick (in house) 06/02/2024 00:00: 00:00:00CBC Fingerstick (in house)mcv 7583-30-89N12:00:0091.775 - 100RevieweSharon Lucio 06/02/2024 3:54:13 PM > results reviewed w/ pt in office Coding CBC Fingerstick (in house) 06/02/2024 00:00: 00:00:00CBC Fingerstick (in house)hct 1281-12-72X25:00:0041.935 - 55RevieweSharon Lucio 06/02/2024 3:54:13 PM > results reviewed w/ pt in office Coding CBC Fingerstick (in house) 06/02/2024 00:00: 00:00:00CBC Fingerstick (in house)hgb 6955-10-48T93:00:0013.411.5 - 16.5ReviewedGSharon chun 06/02/2024 3:54:13 PM > results reviewed w/ pt in office Coding CBC Fingerstick (in house) 06/02/2024 00:00: 00:00:00CBC Fingerstick (in house)rbc 1044-00-45R32:00:003.573.5 - 5.5ReviewedGSharon chun 06/02/2024 3:54:13 PM > results reviewed w/ pt in office Coding CBC Fingerstick (in house) 06/02/2024 00:00: 00:00:00CBC Fingerstick (in house)gran 0546-82-42B53:00:0070.935 - 80ReviewedGSharon chun 06/02/2024 3:54:13 PM > results reviewed w/ pt in office Coding CBC Fingerstick (in house) 06/02/2024 00:00:00006/02/2024 00:00:00CBC Fingerstick (in house)mid 0290-15-13U66:00:005.52 - 15Sharon Beckham 06/02/2024 3:54:13 PM > results reviewed w/ pt in office Coding CBC Fingerstick (in house) 06/02/2024 00:00:00006/02/2024 00:00:00CBC Fingerstick (in house)lym 6881-81-12F60:00:0023.615 - 50Sharon Beckham 06/02/2024 3:54:13 PM > results reviewed w/ pt in office Coding CBC Fingerstick (in house) 06/02/2024 00:00:00006/02/2024 00:00:00CBC Fingerstick (in house)wbc 6933-39-14T15:00:008.23.5 - 10ReSharon Phillips 06/02/2024 3:54:13 PM > results reviewed w/ pt in office Coding CBC Fingerstick (in house) 06/02/2024 00:00:00006/02/2024 00:00:00Rapid Strep- Inhousestrep test 9285-93-67X87:00:00negSharon Beckham 06/02/2024 3:33:46 PM > Coding Rapid Strep- Inhouse 06/02/2024 00:00:00110/28/2023 00:00:00Covid test (in house)Result: 4568-74-68V31:00:00negReMy Navarro 08/28/2024 10:28:39 AM > Provider reviewed results while patient in office. Coding Covid test (in house) 08/27/2024 00:00:00110/28/2023 00:00:00CBC Fingerstick (in house)plat 0844-63-40N07:00:59804710 - 400ReMy Navarro 08/27/2024 9:30:51 AM > , Provider reviewed results while patient in office.Katie Glass 08/27/2024 3:13:35 PM > Coding CBC Fingerstick (in house) 08/27/2024 00:00:00110/28/2023 00:00:00CBC Fingerstick (in house)[facility] 1362-88-97O89:00:0032.531 - 38Review[facility]HrodBu[facility] 08/27/2024 9:30:51 AM > , Provider reviewed results while patient in office.Katie Glass 08/27/2024 3:13:35 PM > Coding CBC Fingerstick (in house) 08/27/2024 00:00:00110/28/2023 00:00:00CBC Fingerstick (in house)[facility] 5148-42-38F31:00:0028.925 - 35RevieweWaliBucyrus Community Hospital 08/27/2024 9:30:51 AM > , Provider reviewed results while patient in office.Katie Glass 08/27/2024 3:13:35 PM > Coding CBC Fingerstick (in house) 08/27/2024 00:00:00110/28/2023 00:00:00CBC Fingerstick (in house)[facility] 5809-90-47Q24:00:0088.975 - 100RevieweWaliBucyrus [facility] Hospital 08/27/2024 9:30:51 AM > , Provider reviewed results while patient in office.Katie Glass 08/27/2024 3:13:35 PM > Coding CBC Fingerstick (in house) 08/27/2024 00:00:00110/28/2023 00:00:00CBC Fingerstick (in house)[facility] 3221-31-61S14:00:0041.035 - 55ReviewedHrodBucyrus Community Hospital 08/27/2024 9:30:51 AM > , Provider reviewed results while patient in office.Katie Glass 08/27/2024 3:13:35 PM > Coding CBC Fingerstick (in house) 08/27/2024 00:00:00110/28/2023 00:00:00CBC Fingerstick (in house)[facility] 1428-70-46X43:00:0013.311.5 - 16.5[facility]we[facility] 08/27/2024 9:30:51 AM > , Provider reviewed results while patient in office.Katie Glass 08/27/2024 3:13:35 PM > Coding CBC Fingerstick (in house) 08/27/2024 00:00:00110/28/2023 00:00:00CBC Fingerstick (in house)[facility] 9618-41-46V80:00:004.623.5 - 5.5RevieweMadeleineHighland District Hospital 08/27/2024 9:30:51 AM > , Provider reviewed results while patient in office.Katie Glass 08/27/2024 3:13:35 PM > Coding CBC Fingerstick (in house) 08/27/2024 00:00:00110/28/2023 00:00:00CBC Fingerstick (in house)[facility] 4124-79-81O39:00:0069.035 - 80RevieweMadeleineHighland District Hospital 08/27/2024 9:30:51 AM > , Provider reviewed results while patient in office.Katie Glass 08/27/2024 3:13:35 PM > Coding CBC Fingerstick (in house) 08/27/2024 00:00:00110/28/2023 00:00:00CBC Fingerstick (in house)[facility] 2468-04-72N66:00:006.42 - 15RevieweMadeleineHighland District Hospital 08/27/2024 9:30:51 AM > , Provider reviewed results while patient in office.Katie Glass 08/27/2024 3:13:35 PM > Coding CBC Fingerstick (in house) 08/27/2024 00:00:00110/28/2023 00:00:00CBC Fingerstick (in house)[facility] 5093-15-29C00:00:0024.615 - 50RevieweWaliBucyrus [facility] Hospital 08/27/2024 9:30:51 AM > , Provider reviewed results while patient in office.Katie Glass 08/27/2024 3:13:35 PM > Coding CBC Fingerstick (in house) 08/27/2024 00:00:00110/28/2023 00:00:00CBC Fingerstick (in house)wbc 2107-76-05G24:00:008.93.5 - 10ReMy Navarro 08/27/2024 9:30:51 AM > , Provider reviewed results while patient in office.Katie Glass 08/27/2024 3:13:35 PM > Coding CBC Fingerstick (in house) 08/27/2024 00:00:00110/28/2023 00:00:00Rapid Strep- Inhousestrep test 7261-26-11W58:00:00negReMy Navarro 08/28/2024 10:28:15 AM > Provider reviewed results while patient in office. Coding Rapid Strep- Inhouse 08/27/2024 00:00:00110/28/2023 00:00:00Influenza Screen (in house)results 6038-74-78K97:00:00negReMy Navarro 08/28/2024 10:29:17 AM > Provider reviewed results while patient in office. Coding Influenza Screen (in house) 08/27/2024 00:00:001 00:00:00Covid test (in house)Result: 4011-41-70J37:00:00negReMy Navarro 09/08/2024 3:31:03 PM > Provider reviewed results while patient in office. Coding Covid test (in house) 09/08/2024 00:00:001 00:00:00Influenza Screen (in house)results 9323-40-10O15:00:00negRevieweMy Keyes 09/08/2024 3:30:44 PM > Provider reviewed results while patient in office. Coding Influenza Screen (in house) 09/08/2024 00:00: 00:00:00Covid test (in house)Result: 9677-15-38O14:00:00negReMy Navarro 10/02/2024 9:41:42 AM > Provider reviewed results while patient in office.Katie Glass 10/02/2024 12:05:49 PM > Coding Covid test (in house) 10/02/2024 00:00: 00:00:00CBC Fingerstick (in house)[facility] 9166-27-48Y62:00:89499712 - 400RevieweWaliDix 10/02/2024 9:34:36 AM > Provider reviewed results while patient in office.Katie Glass 10/02/2024 12:06:15 PM > Coding CBC Fingerstick (in house) 10/02/2024 00:00: 00:00:00CBC Fingerstick (in house)[facility] 4724-59-02P55:00:0032.831 - 38RevieweWaliBucyrus [facility] Hospital 10/02/2024 9:34:36 AM > Provider reviewed results while patient in office.Katie Glass 10/02/2024 12:06:15 PM > Coding CBC Fingerstick (in house) 10/02/2024 00:00: 00:00:00CBC Fingerstick (in house)[facility] 3427-51-23A33:00:0028.925 - 35RevieweWaliDix 10/02/2024 9:34:36 AM > Provider reviewed results while patient in office.Katie Glass 10/02/2024 12:06:15 PM > Coding CBC Fingerstick (in house) 10/02/2024 00:00: 00:00:00CBC Fingerstick (in house)[facility] 9173-93-41U40:00:0088.275 - 100RevieweWaliBucyrus [facility] Hospital 10/02/2024 9:34:36 AM > Provider reviewed results while patient in office.Katie Glass 10/02/2024 12:06:15 PM > Coding CBC Fingerstick (in house) 10/02/2024 00:00: 00:00:00CBC Fingerstick (in house)[facility] 7316-17-15E02:00:0040.635 - 55ReMelanieBucyrus Community Hospital 10/02/2024 9:34:36 AM > Provider reviewed results while patient in office.Katie Glass 10/02/2024 12:06:15 PM > Coding CBC Fingerstick (in house) 10/02/2024 00:00: 00:00:00CBC Fingerstick (in house)[facility] 7969-64-72A48:00:0013.311.5 - 16.5ReMarkyHighland District Hospital 10/02/2024 9:34:36 AM > Provider reviewed results while patient in office.Katie Glass 10/02/2024 12:06:15 PM > Coding CBC Fingerstick (in house) 10/02/2024 00:00: 00:00:00CBC Fingerstick (in house)[facility] 0438-01-54U02:00:004.603.5 - 5.5ReMelanieBucyrus Community Hospital 10/02/2024 9:34:36 AM > Provider reviewed results while patient in office.Katie Glass 10/02/2024 12:06:15 PM > Coding CBC Fingerstick (in house) 10/02/2024 00:00: 00:00:00CBC Fingerstick (in house)[facility] 4874-72-90K14:00:0065.735 - 80RevieweWaliBucyrus Community Hospital 10/02/2024 9:34:36 AM > Provider reviewed results while patient in office.Katie Glass 10/02/2024 12:06:15 PM > Coding CBC Fingerstick (in house) 10/02/2024 00:00: 00:00:00CBC Fingerstick (in house)[facility] 9709-81-34M34:00:007.22 - 15ReMelanieBucyrus Community Hospital 10/02/2024 9:34:36 AM > Provider reviewed results while patient in office.Katie Glass 10/02/2024 12:06:15 PM > Coding CBC Fingerstick (in house) 10/02/2024 00:00: 00:00:00CBC Fingerstick (in house)lym 5730-70-67I26:00:0027.115 - 50ReMy Navarro 10/02/2024 9:34:36 AM > Provider reviewed results while patient in office.Katie Glass 10/02/2024 12:06:15 PM > Coding CBC Fingerstick (in house) 10/02/2024 00:00: 00:00:00CBC Fingerstick (in house)wbc 5900-09-23B85:00:008.43.5 - 10My Frias 10/02/2024 9:34:36 AM > Provider reviewed results while patient in office.Katie Glass 10/02/2024 12:06:15 PM > Coding CBC Fingerstick (in house) 10/02/2024 00:00: 00:00:00Rapid Strep- Inhousestrep test 9039-89-98C58:00:00negMy Frias 10/02/2024 9:42:32 AM > Provider reviewed results while patient in office.Katie Glass 10/02/2024 12:06:06 PM > Coding Rapid Strep- Inhouse 10/02/2024 00:00: 00:00:00Influenza Screen (in house)results 9574-66-94T77:00:00negMy Frias 10/02/2024 9:42:11 AM > Provider reviewed results while patient in office.Katie Glass 10/02/2024 12:05:57 PM > Coding Influenza Screen (in house) 10/02/2024 00:00: 00:00:00P-Uric AcidUric Puhl1350-16-15G77:00:005.4 mg/dL2.4-7.0 - mg/dLJo Najera 11/03/2024 9:49:18 AM > , results reviewed with patient Coding P-Uric Acid 11/02/2024 00:00: 00:00:63T-VNJURA2348-76QWQQPR7599-87-56M90:00:002.28mU/L0.43- 5.25 - mU/Jo Gibbs 11/03/2024 9:49:36 AM > , results reviewed with patient Coding P-TSH 11/02/2024 00:00: 00:00:00P-Lipid PanelTriglycerides 6198-46-05X85:00:0089mg/dL<150 - mg/dLReJo Chavira 11/03/2024 9:49:58 AM > , results reviewed with patient Coding P-Lipid Panel 11/02/2024 00:00: 00:00:00P-Lipid PanelNon-HDL Cholesterol 2189-47-25E60:00:30542hs/dL<130 - mg/dLJo Najera 11/03/2024 9:49:58 AM > , results reviewed with patient Coding P-Lipid Panel 11/02/2024 00:00: 00:00:00P-Lipid PanelLDL/HDL Ratio 0983-29-64E30:00:002.1Ratio<3.3 - RatioReJo Chavira 11/03/2024 9:49:58 AM > , results reviewed with patient Coding P-Lipid Panel 11/02/2024 00:00: 00:00:00P-Lipid PanelLDL Cholesterol (Calculation) 0869-50-50M44:00:0099mg/dL<130 - mg/dLReJo Chavira 11/03/2024 9:49:58 AM > , results reviewed with patient Coding P-Lipid Panel 11/02/2024 00:00: 00:00:00P-Lipid PanelHDL Cholesterol 8576-71-43M05:00:0047mg/dL>39 - mg/dLJo Najera 11/03/2024 9:49:58 AM > , results reviewed with patient Coding P-Lipid Panel 11/02/2024 00:00: 00:00:00P-Lipid PanelCholesterol 4274-50-54L47:00:20336ta/dL<200 - mg/dLReJo Chavira 11/03/2024 9:49:58 AM > , results reviewed with patient Coding P-Lipid Panel 11/02/2024 00:00: 00:00:00P-Lipid PanelCholesterol / HDL Ratio 7432-98-55F80:00:003.15Dmrls3.00-4.44 - RatioReJo Chavira 11/03/2024 9:49:58 AM > , results reviewed with patient Coding P-Lipid Panel 11/02/2024 00:00: 00:00:00P-Comprehensive Metabolic Panel (CMP)eGFR by Rtzqwjjhad8122-65-83J91:00:0080mL/min/1.73m2>59 - mL/min/1.34c3Tmqttzjx Jo Villa 11/03/2024 9:48:14 AM > , results reviewed with patient Coding P-Comprehensive Metabolic Pa carlos (CMP) 11/02/2024 00:00: 00:00:00P-Comprehensive Metabolic Panel (CMP) Sywikuo6882-27-98E06:00:007.4g/dL6.0-8.3 - g/dLReJo Chavira 11/03/2024 9:48:14 AM > , results reviewed with patient Coding P-Comprehensive Metabolic Pa carlos (CMP) 11/02/2024 00:00: 00:00:00P-Comprehensive Metabolic Panel (CMP) Mnsjhl0464-19-31F43:00:60282ispo/I883-630 - mmol/LRevJo Ham 11/03/2024 9:48:14 AM > , results reviewed with patient Coding P-Comprehensive Metabolic Pa carlos (CMP) 11/02/2024 00:00: 00:00:00P-Comprehensive Metabolic Panel (CMP) Fytbtqwvu7116-45-56K30:00:004.4mmol/L3.5-5.3 - mmol/LRevJo Ham 11/03/2024 9:48:14 AM > , results reviewed with patient Coding P-Comprehensive Metabolic Pa carlos (CMP) 11/02/2024 00:00: 00:00:00P-Comprehensive Metabolic Panel (CMP) Llcmole8810-21-26D09:00:01576cx/dL65-99 - mg/dLJo Max 11/03/2024 9:48:14 AM > , results reviewed with patient Coding P-Comprehensive Metabolic Pa carlos (CMP) 11/02/2024 00:00: 00:00:00P-Comprehensive Metabolic Panel (CMP) Amtktuxbcg7627-09-97B69:00:000.77mg/dL0.50-1.00 - mg/dLJo Najera 11/03/2024 9:48:14 AM > , results reviewed with patient Coding P-Comprehensive Metabolic Pa carlos (CMP) 11/02/2024 00:00: 00:00:00P-Comprehensive Metabolic Panel (CMP)CO2 3277-20-96X15:00:0025mmol/L22-32 - mmol/Jo Gibbs 11/03/2024 9:48:14 AM > , results reviewed with patient Coding P-Comprehensive Metabolic Pa carlos (CMP) 11/02/2024 00:00: 00:00:00P-Comprehensive Metabolic Panel (CMP) Aireezse9370-75-90D77:00:04527zbiu/L97-108 - mmol/Jo Gibbs 11/03/2024 9:48:14 AM > , results reviewed with patient Coding P-Comprehensive Metabolic Pa carlos (CMP) 11/02/2024 00:00: 00:00:00P-Comprehensive Metabolic Panel (CMP) Vrnwyan1229-35-42X38:00:0010.0mg/dL8.6-10.4 - mg/dLJo Najera 11/03/2024 9:48:14 AM > , results reviewed with patient Coding P-Comprehensive Metabolic Pa carlos (CMP) 11/02/2024 00:00: 00:00:00P-Comprehensive Metabolic Panel (CMP)BUN 3308-27-83K10:00:0018mg/dL8-23 - mg/dLReJo Chavira 11/03/2024 9:48:14 AM > , results reviewed with patient Coding P-Comprehensive Metabolic Pa carlos (CMP) 11/02/2024 00:00: 00:00:00P-Comprehensive Metabolic Panel (CMP) Bilirubin, Uubiv0094-72-47L10:00:000.6mg/dL<0.2-1.2 - mg/dLReJo Ceron 11/03/2024 9:48:14 AM > , results reviewed with patient Coding P-Comprehensive Metabolic Pa carlos (CMP) 11/02/2024 00:00: 00:00:00P-Comprehensive Metabolic Panel (CMP)AST (SGOT)2777-70-16Q81:00:0015IU/L<5-40 - IU/Jo Gibbs 11/03/2024 9:48:14 AM > , results reviewed with patient Coding P-Comprehensive Metabolic Pa calros (CMP) 11/02/2024 00:00: 00:00:00P-Comprehensive Metabolic Panel (CMP)ALT (SGPT)5484-49-14K02:00:0011IU/L<5-47 - IU/Jo Gibbs 11/03/2024 9:48:14 AM > , results reviewed with patient Coding P-Comprehensive Metabolic Pa carlos (CMP) 11/02/2024 00:00: 00:00:00P-Comprehensive Metabolic Panel (CMP) Alkaline Hjdenmfpnna2756-00-52E73:00:32778MA/L35-121 - IU/LRevJo Edmonds 11/03/2024 9:48:14 AM > , results reviewed with patient Coding P-Comprehensive Metabolic Pa carlos (CMP) 11/02/2024 00:00: 00:00:00P-Comprehensive Metabolic Panel (CMP) Pfpmkyj4740-10-08Q48:00:004.3g/dL3.5-5.3 - g/dLReJo Chavira 11/03/2024 9:48:14 AM > , results reviewed with patient Coding P-Comprehensive Metabolic Pa carlos (CMP) 11/02/2024 00:00: 00:00:00P-Comprehensive Metabolic Panel (CMP)A/G Pjeoo0700-72-46X87:00:001.41.1-2.5 -ReviewedJo Villa 11/03/2024 9:48:14 AM > , results reviewed with patient Coding P-Comprehensive Metabolic Pa carlos (CMP) 11/02/2024 00:00: 00:00:00Glycohemoglobin A1c (in house) dkepupzezvoabst5642-13-74G29:00:006.2%%5 - 6.5 %My Frias 11/02/2024 11:28:21 AM > Jo Villa 11/03/2024 9:50:39 AM > , results reviewed with patient Coding Glycohemoglobin A1c (in hous e) 11/02/2024 00:00: 00:00:00CBC Fingerstick (in house)[facility] 4136-24-57L58:00:[id number] - 400ReMy Navarro 11/02/2024 10:30:56 AM > Provider reviewed results while patient in office.Jo Villa 11/02/2024 12:47:56 PM > Coding CBC Fingerstick (in house) 11/02/2024 00:00: 00:00:00CBC Fingerstick (in house)[facility] 0934-81-13W29:00:0033.931 - 38ReMy Navarro 11/02/2024 10:30:56 AM > Provider reviewed results while patient in office.Jo Villa 11/02/2024 12:47:56 PM > Coding CBC Fingerstick (in house) 11/02/2024 00:00: 00:00:00CBC Fingerstick (in house)[facility] 3300-86-51U62:00:0029.625 - 35RevieweWaliYm 11/02/2024 10:30:56 AM > Provider reviewed results while patient in office.Jo Villa 11/02/2024 12:47:56 PM > Coding CBC Fingerstick (in house) 11/02/2024 00:00: 00:00:00CBC Fingerstick (in house)mcv 7788-01-26X52:00:0087.475 - 100RevieweWaliMy 11/02/2024 10:30:56 AM > Provider reviewed results while patient in office.Jo Villa 11/02/2024 12:47:56 PM > Coding CBC Fingerstick (in house) 11/02/2024 00:00: 00:00:00CBC Fingerstick (in house)[facility] 4302-19-53G07:00:0039.935 - 55ReMelanieMy 11/02/2024 10:30:56 AM > Provider reviewed results while patient in office.Jo Villa 11/02/2024 12:47:56 PM > Coding CBC Fingerstick (in house) 11/02/2024 00:00: 00:00:00CBC Fingerstick (in house)hgb 8388-59-66G82:00:0013.511.5 - 16.5ReMelanieMy 11/02/2024 10:30:56 AM > Provider reviewed results while patient in office.Jo Villa 11/02/2024 12:47:56 PM > Coding CBC Fingerstick (in house) 11/02/2024 00:00: 00:00:00CBC Fingerstick (in house)rbc 3679-93-45U77:00:004.563.5 - 5.5RevieweWaliMy 11/02/2024 10:30:56 AM > Provider reviewed results while patient in office.Jo Villa 11/02/2024 12:47:56 PM > Coding CBC Fingerstick (in house) 11/02/2024 00:00: 00:00:00CBC Fingerstick (in house)[facility] 9696-33-96X76:00:0072.235 - 80ReMy Navarro 11/02/2024 10:30:56 AM > Provider reviewed results while patient in office.Jo Villa 11/02/2024 12:47:56 PM > Coding CBC Fingerstick (in house) 11/02/2024 00:00: 00:00:00CBC Fingerstick (in house)mid 8526-25-77V65:00:006.12 - 15ReMy Navarro 11/02/2024 10:30:56 AM > Provider reviewed results while patient in office.Jo Villa 11/02/2024 12:47:56 PM > Coding CBC Fingerstick (in house) 11/02/2024 00:00: 00:00:00CBC Fingerstick (in house)[facility] 2853-22-95Z73:00:0021.715 - 50ReMy Navarro 11/02/2024 10:30:56 AM > Provider reviewed results while patient in office.Jo Villa 11/02/2024 12:47:56 PM > Coding CBC Fingerstick (in house) 11/02/2024 00:00: 00:00:00CBC Fingerstick (in house)wbc 1488-98-30G27:00:0011.23.5 - 10RevieweMy Keyes 11/02/2024 10:30:56 AM > Provider reviewed results while patient in office.Jo Villa 11/02/2024 12:47:56 PM > Coding CBC Fingerstick (in house) 11/02/2024 00:00: 00:00:00CBC Fingerstick (in house)plat 2784-41-95A10:00:47655809 - 400ReIlene Su 12/10/2024 4:21:40 PM > , Provider reviewed results while patient in office. Coding CBC Fingerstick (in house) 12/10/2024 00:00: 00:00:00CBC Fingerstick (in house)[facility] 3606-50-60D01:00:0033.031 - 38ReviewedKing,[facility] 12/10/2024 4:21:40 PM > , Provider reviewed results while patient in office. Coding CBC Fingerstick (in house) 12/10/2024 00:00: 00:00:00CBC Fingerstick (in house)[facility] 9448-52-24R97:00:0029.125 - 35ReviewedKing,[facility] 12/10/2024 4:21:40 PM > , Provider reviewed results while patient in office. Coding CBC Fingerstick (in house) 12/10/2024 00:00: 00:00:00CBC Fingerstick (in house)mcv 8768-35-46H22:00:0088.475 - 100ReviewedKing,[facility] 12/10/2024 4:21:40 PM > , Provider reviewed results while patient in office. Coding CBC Fingerstick (in house) 12/10/2024 00:00: 00:00:00CBC Fingerstick (in house)hct 2158-32-27B67:00:0037.135 - 55ReviewedKing,[facility] 12/10/2024 4:21:40 PM > , Provider reviewed results while patient in office. Coding CBC Fingerstick (in house) 12/10/2024 00:00: 00:00:00CBC Fingerstick (in house)hgb 1461-02-65W03:00:0012.211.5 - 16.5ReviewedKing,[facility] 12/10/2024 4:21:40 PM > , Provider reviewed results while patient in office. Coding CBC Fingerstick (in house) 12/10/2024 00:00: 00:00:00CBC Fingerstick (in house)rbc 6921-82-84W92:00:004.203.5 - 5.5ReviewedKing,[facility] 12/10/2024 4:21:40 PM > , Provider reviewed results while patient in office. Coding CBC Fingerstick (in house) 12/10/2024 00:00: 00:00:00CBC Fingerstick (in house)gran 5298-74-38X89:00:0074.5%35 - 80ReviewedKing,Ilene 12/10/2024 4:21:40 PM > , Provider reviewed results while patient in office. Coding CBC Fingerstick (in house) 12/10/2024 00:00: 00:00:00CBC Fingerstick (in house)mid 7602-54-14V39:00:005.9%2 - 15ReviewedKing,Ilene 12/10/2024 4:21:40 PM > , Provider reviewed results while patient in office. Coding CBC Fingerstick (in house) 12/10/2024 00:00: 00:00:00CBC Fingerstick (in house)lym 9403-96-95V15:00:0019.6%15 - 50ReviewedKing,[facility] 12/10/2024 4:21:40 PM > , Provider reviewed results while patient in office. Coding CBC Fingerstick (in house) 12/10/2024 00:00: 00:00:00CBC Fingerstick (in house)wbc 7056-37-51W92:00:0010.83.5 - 10ReviewedKing,[facility] 12/10/2024 4:21:40 PM > , Provider reviewed results while patient in office. Coding CBC Fingerstick (in house) 12/10/2024 00:00: 00:00:00CBC Fingerstick (in house)plat 7061-67-68K77:00:74637719 - 400ReviewedCheri Lewis 12/30/2024 10:34:56 AM > Provider reviewed results while patient in office.Katie Glass 12/30/2024 1:10:26 PM > Coding CBC Fingerstick (in house) 12/30/2024 00:00: 00:00:00CBC Fingerstick (in house)[facility] 5017-56-81Y10:00:0032.731 - 38ReCheri Zavala 12/30/2024 10:34:56 AM > Provider reviewed results while patient in office.Katie Glass 12/30/2024 1:10:26 PM > Coding CBC Fingerstick (in house) 12/30/2024 00:00: 00:00:00CBC Fingerstick (in house)mch 6750-25-71N24:00:0029.225 - 35ReCheri Zavala 12/30/2024 10:34:56 AM > Provider reviewed results while patient in office.Katie Glass 12/30/2024 1:10:26 PM > Coding CBC Fingerstick (in house) 12/30/2024 00:00: 00:00:00CBC Fingerstick (in house)mcv 2039-50-79P43:00:0089.275 - 100ReCheri Zavala 12/30/2024 10:34:56 AM > Provider reviewed results while patient in office.Katie Glass 12/30/2024 1:10:26 PM > Coding CBC Fingerstick (in house) 12/30/2024 00:00: 00:00:00CBC Fingerstick (in house)hct 4937-82-87U66:00:0040.335 - 55ReCheri Zavala 12/30/2024 10:34:56 AM > Provider reviewed results while patient in office.Katie Glass 12/30/2024 1:10:26 PM > Coding CBC Fingerstick (in house) 12/30/2024 00:00: 00:00:00CBC Fingerstick (in house)hgb 4075-17-03L01:00:0013.211.5 - 16.5ReCheri Zavala 12/30/2024 10:34:56 AM > Provider reviewed results while patient in office.Maria LuisaKatie Hidalgo 12/30/2024 1:10:26 PM > Coding CBC Fingerstick (in house) 12/30/2024 00:00: 00:00:00CBC Fingerstick (in house)rbc 4996-89-79V48:00:004.513.5 - 5.5RevieweCheri Mcrae 12/30/2024 10:34:56 AM > Provider reviewed results while patient in office.Maria LuisaKatie Hidalgo 12/30/2024 1:10:26 PM > Coding CBC Fingerstick (in house) 12/30/2024 00:00: 00:00:00CBC Fingerstick (in house)gran 9358-93-51A60:00:0075.435 - 80RevieweCheri Mcrae 12/30/2024 10:34:56 AM > Provider reviewed results while patient in office.Maria LuisaKatie Hidalgo 12/30/2024 1:10:26 PM > Coding CBC Fingerstick (in house) 12/30/2024 00:00: 00:00:00CBC Fingerstick (in house)mid 6623-52-82Y20:00:005.6%2 - 15RevieweCheri Mcrae 12/30/2024 10:34:56 AM > Provider reviewed results while patient in office.Maria LuisaKatie Hidalgo 12/30/2024 1:10:26 PM > Coding CBC Fingerstick (in house) 12/30/2024 00:00: 00:00:00CBC Fingerstick (in house)lym 2970-75-85F50:00:0019.0%15 - 50RevieweCheri Mcrae 12/30/2024 10:34:56 AM > Provider reviewed results while patient in office.Katie Glass 12/30/2024 1:10:26 PM > Coding CBC Fingerstick (in house) 12/30/2024 00:00: 00:00:00CBC Fingerstick (in house)wbc 7545-64-01X90:00:008.23.5 - 10ReviewedCheri Lewis 12/30/2024 10:34:56 AM > Provider reviewed results while patient in office.Katie Glass 12/30/2024 1:10:26 PM > Coding CBC Fingerstick (in house) 12/30/2024 00:00:00
--- OUTSIDE RECORDS SUMMARY | 2025-05-07 11:07 | XMS_ITS | Clinical Summary ---
Author Organization [facility] Address [address] [place] [address] Care Team Providers Care Lumber Marker Name Role Phone Darrin Braxton MD Primary Care Provider Allergies Active Allergy Reactions Criticality Noted Date Comments Ampicillin 10/03/2016 Cefaclor 10/03/2016 Other 10/03/2016 IVP DYE Medications omeprazole (priLOSEC) 20 MG capsule Take 1 capsule by mouth Daily. 7 Active ibuprofen (ADVIL,MOTRIN) 800 MG tablet As Needed. 7 Active sertraline (ZOLOFT) 25 MG tablet Take 1 tablet by mouth Daily. Active allopurinol (ZYLOPRIM) 100 MG tablet Take 1 tablet by mouth Daily. Active mometasone (NASONEX) 50 MCG/ACT nasal spray Administer 2 sprays into the nostril(s) as directed by provider As Needed. Active meclizine 25 MG chewable tablet chewable tablet Chew 1 tablet As Needed. Active loratadine (CLARITIN) 10 MG tablet Take 1 tablet by mouth As Needed for Allergies. Active Active Problems Problem Noted Date Diagnosed Date Breast cancer, left 10/03/2016 Cancer Staging:Clinical: Unsigned Pathologic stage from 12/06/2016:Stage IA(T1c, N0, cM0(i+)) - Signed by Fer Henderson MD on 12/06/2016 Overview (10/03/2016): Images from the original note were not included. Family History Medical History Relation Name Comments BRCA 1/2 Neg Hx Breast cancer Neg Hx Ovarian cancer Neg Hx Social History Tobacco Use Types Packs/Day Years Used Date Smoking Tobacco: Never Passive Smoke Exposure: Never Smokeless Tobacco: Never Tobacco Cessation:Counseling Given: Not Answered Alcohol Use Standard Drinks/Week Comments No 0 (1 standard drink = 0.6 oz pur e alcohol) PHQ-2 Answer Date Recorded Patient Health Questionnaire-9 Score 0 11/26/2024 Comments No Sex and Gender Information Value Date Recorded Sex Assigned at Female 11/19/2024 12:06 PM EDT Legal Sex Female 10:48 AM EDT Gender Identity Not on file Sexual Orientation Straight 11/19/2024 12 :06 PM EDT Last Filed Vital Signs Vital Sign Reading Time Taken Comments Blood Pressure 176/106 11/26/2024 11:49 AM EDT Pulse 96 11/26/2024 11:49 AM EDT Temperature 36.2 C (97.1 F) 11/26/2024 11:49 AM EDT Respiratory Rate 18 11/26/2024 11:49 AM EDT Oxygen Saturation 97% 11/26/2024 11:49 AM EDT Inhaled Oxygen Concentration - - Weight 105 kg (230 lb 8 oz) 11/26/2024 11:49 AM EDT Height 157.5 cm (5' 2.01 ) 11/26/2024 11:49 AM E DT Body Mass Index 42.15 11/26/2024 11:49 AM EDT Plan of Treatment Upcoming Encounters Date Type Department Care Team (Late st Contact Info) Description 09/16/2025 9:30 AM EST Office Visit [facility] CARDIOLOGY [address] [place] [address] [place] [address] Kian Edge MD [address] [place] [address] 11/25/2025 10:00 AM EDT Office Visit [facility] HEM[facility] & [facility]OGY [address] [place] [id number] Trudy Almanza, 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 MACHINE OPERATOR [address] [place] [address] Health Maintenance Due Date Last Done Comments DXA SCAN 1949 TDAP/TD VACCINES (1 - Tdap) 1968 COLOGUARD 1994 COLON CANCER SCREENING 5 YEA R SIGMOIDOSCOPY 1994 [address] COLONOGRAPHY 1994 FECAL OCCULT BLOOD TEST 1994 FIT Testing (1 year) 1994 Pneumococcal Vaccine 50+ (1 of 1 - PCV) 1999 ZOSTER VACCINE (1 of 2) 1999 ANNUAL WELLNESS VISIT 12/06/2016 HEPATITIS C SCREENING 12/06/2016 RSV Vaccine - Adults (1 - 1- dose 75+ series) 2024 COVID-19 Vaccine (2 - 2023-2 5 season) 2024 11/16/2020 INFLUENZA VACCINE 06/09/2025 05/17/2020, , 05/17/2020, Additional history exists COLONOSCOPY 01/21/2027 01/21/2017 COLORECTAL CANCER SCREENING 01/21/2027 MAMMOGRAM Discontinued 10/28/2024, 02/0 02/2024, 09/13/2022, Additional history exists Procedures Procedure Name Priority Date/Time Associated Diagnosis Comments MAMMO SCREENING DIGITAL TOMOSYNTHESIS BILATERAL W CAD Routine 10/28/2024 8:44 AM EST Visit for screening mammogram from Last 3 Months or Most Recently Relevant to Health Maintenance Results * Mammo Screening Digital Tomosynthesis Bilateral With CAD (10/28/2024 8:44 AM EST) Anatomical Region Laterality Modality Breast N/A Mammography 10/29/2024 12:3 6 PM EST Impressions 10/29/2024 12:37 PM EST Benign screening mammogram. RECOMMENDATION: Continue annual screening mammography. BI-RADS CATEGORY 2, BENIGN. CAD was utilized. The standard false-negative rate of mammography is between 10% and 25%. Complex patterns or increased breast density will markedly elevate the false-negative rate of mammography. A letter, in lay terminology, with the results of this exam will be mailed to the patient. 10/29/2024 12:[address] Yissel Miller MD on Narrative 10/29/2024 12:37 PM EST DIGITAL SCREENING MAMMOGRAM WITH TOMOSYNTHESIS HISTORY: Screening Mammography. Low dose full field digital breast tomosynthesis imaging was performed with 2D and 3D acquisitions consisting of bilateral CC and MLO views. Examination is compared to prior examination dating back to 10/22/2016. Examination is read in conjunction with computer aided detection. FINDINGS: There are scattered areas of fibroglandular density. No suspicious masses, microcalcifications or areas of architectural distortion are identified. Changes consistent with left breast conservation therapy are stable. Darrin Braxton MD IMG MAMMOGRAPHY ORDERA BLES Final Result from Last 3 Months or Most Recently Relevant to Health Maintenance Insurance MEDICARE A & B [facility] [place] [address] [facility] Care Teams Lumber Marker Relationship Specialty Start Date End Date Darrin Braxton MD [address] [facility] [address] [place] [address] PCP - General Family Medicine 04/28/20
--- OUTSIDE RECORDS SUMMARY | 2025-05-07 11:07 | XMS_ITS | Patient Health Record ---
[facility] Organization [facility] Address [address] [facility] [address] [place] [id number] Care Team Providers Care Hospital Laboratory Technician Name Role Phone Yani Braxton Primary Care Provider [phone] Jo Villa Unavailable [phone] Katie Glass Unavailable [phone] Allergies Allergen (clinical drug ingredient) Drug/Non Drug [...] - 38 plat 383 100 - 400 Influenza Screen (in house) (Not yet reviewed by provider) Interpretation:neg Performing Lab: Notes/Report: neg results neg Rapid Strep- Inhouse (Not ye t reviewed by provider) Interpretation:neg Performing Lab: Notes/Report: neg strep test neg CBC Fingerstick (in house) ( Not yet reviewed by provider) Interpretation: Performing Lab: Notes/Report: wbc 8.9 3.5 - 10 lym 23.3 15 - 50 mid 6.5 2 - 15 gran 70.2 35 - 80 rbc 4.37 3.5 - 5.5 hgb 12.9 11.5 - 16.5 hct 37.7 35 - 55 mcv 86.3 75 - 100 mch 29.5 25 - 35 mchc 34.2 31 - 38 plat 298 100 - 400 Covid test (in house) Reviewed date:08/28/2024 10:28:52 AM Interpretation:neg Performing Lab: Notes/Report: neg Result: neg CBC Fingerstick (in house) Reviewed date:08/27/2024 03:13:37 PM Interpretation: Performing Lab: Notes/Report: wbc 8.9 3.5 - 10 lym 24.6 15 - 50 mid 6.4 2 - 15 gran 69.0 35 - 80 rbc 4.62 3.5 - 5.5 hgb 13.3 11.5 - 16.5 hct 41.0 35 - 55 mcv 88.9 75 - 100 mch 28.9 25 - 35 mchc 32.5 31 - 38 plat 301 100 - 400 Rapid Strep- Inhouse Reviewed date:08/28/2024 10:29:03 AM Interpretation:neg Performing Lab: Notes/Report: neg strep test neg Influenza Screen (in house) Reviewed date:08/28/2024 10:29:24 AM Interpretation:neg Performing Lab: Notes/Report: neg results neg CBC Fingerstick (in house) Reviewed date:04/23/2025 [...] - 38 plat 219 100 - 400 Rapid Strep- Inhouse Reviewed date:04/23/2025 05:02:40 PM Interpretation:neg Performing Lab: Notes/Report: neg strep test neg CBC Fingerstick (in house) Reviewed date:12/10/2024 04:21:46 [...] - 38 plat 322 100 - 400 Covid test (in house) Reviewed date:09/09/2024 11:06:32 AM Interpretation:neg Performing Lab: Notes/Report: neg Result: neg Influenza Screen (in house) Reviewed date:09/09/2024 11:06:32 AM Interpretation:neg Performing Lab: Notes/Report: neg results neg Rapid Strep- Inhouse Reviewed date:06/02/2024 03:52:53 PM Interpretation:Negative Performing Lab: Notes/Report: Negative strep test neg CBC Fingerstick (in house) Reviewed date:06/02/2024 03:54:26 PM Interpretation: Performing Lab: Notes/Report: wbc 8.2 3.5 - 10 lym 23.6 15 - 50 mid 5.5 2 - 15 gran 70.9 35 - 80 rbc 3.57 3.5 - 5.5 hgb 13.4 11.5 - 16.5 hct 41.9 35 - 55 mcv 91.7 75 - 100 mch 29.3 25 - 35 mchc 32.0 31 - 38 plat 324 100 - 400 Influenza Screen (in house) Reviewed date:10/02/2024 12:06:01 PM Interpretation:neg Performing Lab: Notes/Report: neg results neg Rapid Strep- Inhouse Reviewed date:10/02/2024 12:06:09 PM Interpretation:neg Performing Lab: Notes/Report: neg strep test neg CBC Fingerstick (in house) Reviewed date:10/02/2024 12:06:18 PM Interpretation: Performing Lab: Notes/Report: wbc 8.4 3.5 - 10 lym 27.1 15 - 50 mid 7.2 2 - 15 gran 65.7 35 - 80 rbc 4.60 3.5 - 5.5 hgb 13.3 11.5 - 16.5 hct 40.6 35 - 55 mcv 88.2 75 - 100 mch 28.9 25 - 35 mchc 32.8 31 - 38 plat 294 100 - 400 Covid test (in house) Reviewed date:10/02/2024 12:05:53 PM Interpretation:neg Performing Lab: Notes/Report: neg Result: neg CBC Fingerstick (in house) Reviewed date:11/02/2024 12:47:58 PM Interpretation: Performing Lab: Notes/Report: wbc 11.2 3.5 - 10 lym 21.7 15 - 50 mid 6.1 2 - 15 gran 72.2 35 - 80 rbc 4.56 3.5 - 5.5 hgb 13.5 11.5 - 16.5 hct 39.9 35 - 55 mcv 87.4 75 - 100 mch 29.6 25 - 35 mchc 33.9 31 - 38 plat 246 100 - 400 Glycohemoglobin A1c (in hous e) Reviewed date:11/03/2024 09:50:50 AM Interpretation:6.2% Performing Lab: Notes/Report: 6.2% glycohemoglobin 6.2% 5 - 6.5 % P-Comprehensive Metabolic Pa carlos (CMP) Reviewed date:11/03/2024 09:50:24 AM Interpretation:gluc 139 Performing Lab: Notes/Report: Test performed by [facility] , [address], [place] [address] Gerry Godfrey MD, [employer] CLIA: [id number] Sodium 140 135-145 mmol/L Potassium 4.4 3.5-5.3 mmol/L Chloride 101 97-108 mmol/L CO2 25 22-32 mmol/L Glucose 139 65-99 mg/dL BUN 18 8-23 mg/dL Creatinine 0.77 0.50-1.00 mg/dL Calcium 10.0 8.6-10.4 mg/dL eGFR by Creatinine 80 >59 mL/min/1.73m2 Protein 7.4 6.0-8.3 g/dL Albumin 4.3 3.5-5.3 g/dL Alkaline Phosphatase 120 35-121 IU/L ALT (SGPT) 11 <5-47 IU/L AST (SGOT) 15 <5-40 IU/L Bilirubin, Total 0.6 <0.2-1.2 mg/dL A/G Ratio 1.4 1.1-2.5 P-Lipid Panel Reviewed date:11/03/2024 09:50:07 AM Interpretation:HDL 47;LDL 99; TG 89 Performing Lab: Notes/Report: Test performed by [facility], [address] [place] [address] Gerry Godfrey MD, [employer] CLIA: [id number] Cholesterol 164 <200 mg/dL Triglycerides 89 <150 mg/dL HDL Cholesterol 47 >39 mg/dL Cholesterol / HDL Ratio 3.49 0.00-4.44 Ratio Non-HDL Cholesterol 117 <130 mg/dL LDL Cholesterol (Calculation) 99 <130 mg/dL LDL Cholesterol Levels* Less than 100 mg/dL Optimal 100 to 129 mg/dL Near Optimal/ Above Optimal 130 to 159 mg/dL Borderline High 160 to 189 mg/dL High 190 mg/dL and above Very High * Categories as recommended by the 2004 ATPIII guidelines LDL/HDL Ratio 2.1 <3.3 Ratio LDL Cholesterol Patient History Test Date: 11/02/2024 LDL Results: 99 Units: mg/dL % Change: - P-TSH Reviewed date:11/03/2024 09:49:48 AM Interpretation: Normal Performing Lab: Notes/Report: Test performed by [facility] [address] [place] [address] Gerry Godfrey MD, [employer] CLIA: [id number] TSH 2.28 0.43-5.25 mU/L P-Uric Acid Reviewed date:11/03/2024 09:49:27 AM Interpretation: Normal 5.4 Performing Lab: Notes/Report: Test performed by [facility], [address] , [address], [place] [address] Gerry Godfrey MD, [employer] CLIA: [id number] Uric Acid 5.4 2.4-7.0 mg/dL Medications Medication SIG (Take, Route, Frequency, Duration) Notes Start Date End Date Status Medrol 4 MG as directed Orally 04/13/2025 Not-Taking Caltrate 600+D Plus Minerals 600-800 MG-UNIT 1 tablet Orally Twice a day; Duration: 30 day(s) Active Phentermine HCl 30 MG 1 capsule Orally O nce a day 10/06/2024 Not-Taking Bromfed DM 2-30-10 MG/5ML 5-10 mL Orally four times a day, prn 05/07/2025 Active Zithromax Z-Hira 250 MG 2 pills first day then one daily for 4 days orally as directed; Duration: 5 days 04/23/2025 Not-Taking Bromfed DM 2-30-10 MG/5ML 5-10 mL Orally four times a day, prn 04/23/2025 Not-Taking Ibuprofen 800 MG 1 tab(s) orally thre e times a day as needed Active Sertraline HCl 25 MG 1 tab(s) orally onc e a day; Duration: 90 days Active Meclizine HCl 25 MG 1 tablet as needed Orally every 12 hrs prn Not-Taki ng Allopurinol 100 MG 1 tab(s) orally once a day; Duration: 90 days Active Latcxxocu-Sabwfgsy-YP 30-2-10 MG/5ML 5-10 ml Orally 4 times a day, prn 12/10/2024 Not-Taking Ondansetron 4 MG 1 tablet on the tong ue and allow to dissolve Orally q8h prn 11/02/2024 Not-Taking Montelukast Sodium 10 MG 1 tablet Orally Once a day 12/30/2024 Active Nasacort Allergy 24HR 55 MCG/ACT 2 spray(s) intranasally once a day Active Zithromax Z-Hira 250 MG 2 pills first day then one daily for 4 days orally as directed; Duration: 5 days 05/07/2025 Active Omeprazole 20 MG 1 cap orally once a day; Duration: 90 days Active Medrol 4 MG as directed orally daily; Duration: 6 days 12/30/2024 Not-Chrisi ng Crestor 10 MG 1 tab(s) orally once a day; Duration: 90 days Active Immunizations Vaccine Route Administration Date Status Comme nts COVID 19 Rhina Unknown 11/16/2020 Administered Fluzone High Dose (65yr and older) IM Intramuscular 06/14/2014 Administered Fluzone High Dose (65yr and older) IM Intramuscular 06/10/2015 Administered Fluzone High Dose (65yr and older) IM Intramuscular 05/30/2016 Administered Fluzone High Dose (65yr and older) IM Intramuscular 06/24/2017 Administered Fluzone High Dose (65yr and older) IM Intramuscular 07/08/2018 Administered Fluzone High Dose (65yr and older) IM Intramuscular 06/25/2019 Administered Fluzone Quad-Medicare (6months&older) IM Intramuscular 05/17/2020 Administered Hepatitis A (adult) Unknown 08/19/2018 Administered Hepatitis A (adult) Unknown 02/28/2019 Administered Tetanus Tdap-Adacel (over 7yrs) IM Intramuscular 09/14/2008 Administered Tetanus Tdap-Adacel (over 7yrs) IM Intramuscular 10/24/2022 Administered xFlu shot-36 months and older IM Intramuscular 07/27/2005 Administered xFlu shot-36 months and older IM Intramuscular 07/20/2006 Administered xFlu shot-36 months and older IM Intramuscular 07/07/2007 Administered xFlu shot-36 months and older IM Intramuscular 07/02/2008 Administered xFlu shot-36 months and older IM Intramuscular 05/23/2009 Administered xFluzone (6mos and older)-trivalent IM Intramuscular 05/30/2010 Administered xFluzone (6mos and older)-trivalent IM Intramuscular 06/29/2011 Administered xFluzone Intradermal (18-64yrs)-trivalent ID Intradermal 06/09/2012 Administered xFluzone Intradermal (18-64yrs)-trivalent ID Intradermal 06/04/2013 Administered Problems Problem Type SNOMED Code ICD Code Onset Dates Problem Status W/U Status Risk Notes Problem Sciatica (65128258) Sciatica (M54.30) Active co nfirmed Problem Hyperlipidemia (06402203) Hyperlipidemia (E78.5) Active confirmed Problem Gout (57443375) Gout (M10.9) Active confirmed Problem Essential hypertension (36874059) Essential hypertension (I10) Active confirmed Problem Osteopenia (295344302) Osteopenia (M85.80) Active confirmed Problem Seasonal allergy (447682412) Seasonal allergies (J30.2) Active confirmed Problem Personal history of primary malignant neoplasm of breast (613808528) History of breast cancer (Z85.3) Active confirmed Problem Body mass index 40+ - severely obese (236141942) BMI 45.0-49.9, adult (Z68.42) Active confirmed Problem Gastroesophageal reflux disease without esophagitis (110410943) Gastroesophageal reflux disease without esophagitis (K21.9) Active confirmed Problem Paresthesia (finding) (59360276) Paresthesias (R20.2) Active confirmed Problem Osteoarthritis of knee (422267041) Primary osteoarthritis of right knee (M17.11) Active confirmed Problem Body mass index 40+ - morbidly obese (686811682) BMI 40.0-44.9, adult (Z68.41) Active confirmed Problem Hyperlipidaemia (94551288) Hyperlipidemia, unspecified hyperlipidemia type (E78.5) Active confirmed Problem Vaginal bleeding (342316124) Vaginal bleeding (N93.9) Active confirmed Problem Encephalopathy (40186376) Encephalopathy (G93.40) Active confirmed Problem Menopause (813610112) Post menopausal syndrome (N95.1) Active confirmed Problem Lumbar radiculopathy (649728561) Lumbar back pain with radiculopathy affecting right lower extremity (M54.16) Active confirmed Problem Osteoarthritis of knee (842621919) Primary osteoarthritis of knee, unspecified laterality (M17.10) Active confirmed Vital Signs Heart Rate 71 /min 05/07/2025 Blood pressure diastolic 70 mm Hg 05/07/2025 Height 62 in 05/07/2025 Blood pressure systolic 122 mm Hg 05/07/2025 Weight 234.8 lbs 05/07/2025 BMI 42.94 kg/m2 05/07/2025 Encounters Encounter Location Date Provider Diagnosis [facility] [address] [place] [id number] 06/02/2024 R Hitesh Fox Acute pharyngitis J0 2.9 [facility] [address] [place] [id number] 08/27/2024 Katie Crowdy Non-recurrent acute serous otitis media of right ear H65.01 ; Acute URI J06.9 and Lumbar back pain with radiculopathy affecting right lower extremity M54.16 [facility] [address] [place] [id number] 09/08/2024 R Hitesh Fox Pharyngitis J02.9 an d Suprapubic pain R10.30 [facility] [address] [place] [id number] 10/02/2024 Katie Crowdy Acute URI J06.9 and Non-recurrent acute serous otitis media of right ear H65.01 [facility] [address] [place] [id number] 10/21/2024 Katie Crowdy Recurrent acute sero us otitis media of right ear H65.04 ; Lymphadenopathy R59.1 and History of breast cancer Z85.3 [facility] [address] [place] [id number] 11/02/2024 Jo Villa Acute URI J06.9 ; Essential hypertension I10 ; Depressive disorder F32.A ; Polyarthralgia M25.50 ; Gastroesophageal reflux disease without esophagitis K21.9 ; Hyperuricemia E79.0 ; Lymphadenopathy R59.1 ; Hyperlipidemia E78.5 ; Diabetes mellitus screening Z13.1 ; Thyroid disorder screen Z13.29 ; Nausea R11.0 and Dizziness R42 [facility] [address] [place] [id number] 12/10/2024 Katie Crowdy Acute URI J06.9 [facility] [address] [place] [id number] 12/30/2024 Katie Crowdy Acute URI J06.9 ; Ot her seasonal allergic rhinitis J30.2 and BMI 40.0-44.9, adult Z68.41 [facility] [address] [place], [place] [id number] 04/13/2025 Yani Braxton Sciatica M54.30 ; Seasonal allergies J30.2 ; Gastroesophageal reflux disease without esophagitis K21.9 and Hyperlipidemia E78.5 [facility] [address] [place], [place] [id number] 04/23/2025 Katie Crowyahaira Acute URI J06.9 [facility] [address] [place], [place] [id number] 05/07/2025 Katie Crowdy Acute URI J06.9 and Acute otitis media, right H66.91 [facility] [address] [place], [place] [id number] 07/09/2024 Katie Maria Luisa [facility] [address] [facility] [address] [place], [place] [id number] 10/02/2024 Yani Braxton Assessments Encounter Date Diagnosis (ICD Code) Assessment Notes Treatment Notes Treatment Clinical Notes Section Notes 06/02/2024 Acute pharyngitis (ICD-10 - J02.9) 08/27/2024 Acute URI (ICD-10 - J06.9) Has cough medication. 08/27/2024 Non-recurrent acute serous otitis media of right ear (ICD-10 - H65.01) She has flonase and antihistamines at home. The steroid pack should help as well. 09/08/2024 Pharyngitis (ICD-10 - J02.9) 09/08/2024 Suprapubic pain (ICD-10 - R10.30) 10/02/2024 Acute URI (ICD-10 - J06.9) 10/02/2024 Non-recurrent acute serous otitis media of right ear (ICD-10 - H65.01) Will start on steroids. She has flonase at home she will use as well. 10/21/2024 Lymphadenopathy (ICD-10 - R59.1) 10/21/2024 Recurrent acute serous otitis media of right ear (ICD-10 - H65.04) Improved but will make ENT referral. 11/02/2024 Essential hypertension (ICD-10 - I10) 11/02/2024 Acute URI (ICD-10 - J06.9) fluids, rest, supportive measures for fever/symptom relief 12/10/2024 Acute URI (ICD-10 - J06.9) 12/30/2024 Other seasonal allergic rhinitis (ICD-10 - J30.2) 12/30/2024 Acute URI (ICD-10 - J06.9) 04/13/2025 Sciatica (ICD-10 - M54.30) 04/13/2025 Seasonal allergies (ICD-10 - J30.2) 04/23/2025 Acute URI (ICD-10 - J06.9) 05/07/2025 Acute otitis media, right (ICD-10 - H66.91) 05/07/2025 Acute URI (ICD-10 - J06.9) 04/13/2025 Gastroesophageal reflux disease without esophagitis (ICD-10 - K21.9) 12/30/2024 BMI 40.0-44.9, adult (ICD-10 - Z68.41) 11/02/2024 Depressive disorder (ICD-10 - F32.A) 10/21/2024 History of breast cancer (ICD-10 - Z85.3) Patient needs a referral to her oncologist as she is considered a new patient since it has been 2 years since she has been to her office. 08/27/2024 Lumbar back pain with radiculopathy affecting right lower extremity (ICD-10 - M54.16) 11/02/2024 Polyarthralgia (ICD-10 - M25.50) 04/13/2025 Hyperlipidemia (ICD-10 - E78.5) 11/02/2024 Gastroesophageal reflux disease without esophagitis (ICD-10 - K21.9) 11/02/2024 Hyperuricemia (ICD-10 - E79.0) 11/02/2024 Lymphadenopathy (ICD-10 - R59.1) has ent appt next week 11/02/2024 Hyperlipidemia (ICD-10 - E78.5) 11/02/2024 Diabetes mellitus screening (ICD-10 - Z13.1) 11/02/2024 Thyroid disorder screen (ICD-10 - Z13.29) 11/02/2024 Nausea (ICD-10 - R11.0) 11/02/2024 Dizziness (ICD-10 - R42) 11/02/2024 Other follows with oncology and cardiology; has regular mamograms; colonoscopy due and has not been able to schedule due to 's medical issues; plans to do this year Plan Of Treatment Pending Test Test Name Order Date Influenza Screen (in house) 05/07/2025 Rapid Strep- Inhouse 05/07/2025 colonoscopy 03/03/2025 CBC Fingerstick (in house) 05/07/2025 H-Covid, Flu A, Flu B PCR 05/07/2025 L-O-Limqmuvy Protein (CRP) 08/13/2023 Next Appt Details Provider Name:Katie matthews, 05/07/2025 10:15:00 AM, [address], [address], [place], [place], [id number], Provider Name:Yani Doherty, 06/22/2025 09:45:00 AM, [address], [address], [place], [place], [id number], Insurance Providers Payer Name Payer Address Payer Phone Subscriber Number Group Number Insured Name Patient Relationship to Insured Coverage Start Date Coverage End Date MEDICARE PART B [address] [address] [place] [id number] STEPHAN ROTH Self - patient is the insured [facility] [address] [place] [address] [id number] SARAVANAN ROTH Spouse - patient is the spouse of the insured Medications Administered Medication Instructions Date of Administration Dosage Notes Depo- Medrol 40 mg/ml 02/10/2008 1.5 mL Depo- Medrol 40 mg/ml 06/29/2011 1.5 mL Depo- Medrol 40 mg/ml 08/30/2011 Depo- Medrol 40 mg/ml 11/30/2011 1.5 mL Depo- Medrol 40 mg/ml 05/26/2012 Depo- Medrol 40 mg/ml 10/28/2012 1.5 mL Depo- Medrol 40 mg/ml 12/05/2015 1 mL Depo- Medrol 40 mg/ml 05/26/2020 1.5 mL Depo- Medrol 40 mg/ml 01/31/2021 1.5 mL Depo- Medrol 40 mg/ml 10/17/2021 1.5 mL Dexamethasone 02/25/2006 1 mL Dexamethasone 04/26/2006 1 mL Dexamethasone 05/02/2006 1 mL Dexamethasone 01/06/2007 1 mL Dexamethasone 01/13/2007 1 mL Dexamethasone 04/19/2007 Dexamethasone 05/15/2007 1 mL Dexamethasone 07/10/2007 1 mL Dexamethasone 08/04/2007 1 mL Dexamethasone 11/28/2007 1 mL Dexamethasone 03/23/2008 1 mL Dexamethasone 02/01/2009 1 mL Dexamethasone 02/21/2009 1 mL Dexamethasone 03/08/2009 1 mL Dexamethasone 05/09/2009 1 mL Dexamethasone 01/23/2010 1 mL Dexamethasone 01/27/2010 1 mL Dexamethasone 05/19/2010 1 mL Dexamethasone 06/08/2010 1 mL Dexamethasone 12/04/2010 1 mL Dexamethasone 10/12/2011 1 mL Dexamethasone 11/26/2011 1 mL Dexamethasone 05/19/2012 1 mL Dexamethasone 05/21/2017 1 mL Dexamethasone 07/29/2017 1 mL Dexamethasone 09/13/2017 1 mL Dexamethasone 11/26/2017 1 mL Dexamethasone 12/07/2019 1 mL Dexamethasone 02/26/2020 1 mL Dexamethasone 01/10/2022 1 mL Dexamethasone 09/27/2022 1 mL Dexamethasone 09/10/2023 1 mL Dexamethasone 12/17/2023 1 mL Dexamethasone 03/05/2024 1 mL phenergan 25 mg/ml 12/08/2018 25 mg Medical (General) History Medical History History ICD Code seasonal allergies hyperlipidemia benign hematuria glucose intolerance anxiety ductal carcinoma left breast, Dx: 2010 Surgical History Surgery Date(Month/Year) Cholecystectomy Colonoscopy Lumpectomy 12/25/2010 Mole Removal on Back 12/2011 LT Breast Biopsy @ [facility] lts negative 10/06/2012 Under Arm and Eye Biopsy 01/2014 RT Cataract Removal - Dr. Hnerique Lee 04/23/2017 D&C 02/2024 Hospitalization History Reason Date(Month/Year) [facility] - Syncope 02/2024 Flu- [facility] 09/06/2017
--- OUTSIDE RECORDS SUMMARY | 2025-05-07 11:07 | XMS_ITS | Encounter Summary ---
Author Organization [facility] Address [address] [place] [address] Care Team Providers Care Weights And Measures Sealer Name Role Phone Darrin Braxton MD Primary Care Provider [phone] Encounter Details Date Type Department Care Team (Latest Contact Info) Description 05/03/2025 Travel Social History Tobacco Use Types Packs/Day Years [...] Description 02/11/2026 9:00 AM EDT Office Visit [facility] [place] [address] [facility], [address] [place] [address] Thomas Lee MD [address] [address] documented as of this encounter Visit Diagnoses Not on filedocumented in this encounter Additional Health Concerns Assessment Noted Time A fall risk assessment has been complete d for the patient 05/03/2025 9:31 AM EDT A Body Mass Index follow-up plan has been documented for the patient 05/03/2025 9:59 AM EDT documented as of this encounter Care Teams Weights And Measures Sealer Relationship Specialty Start Date End Date Darrin Braxton MD [address] [place], [place] [address] PCP - General 01/20/21 documented as of this encounter
--- OUTSIDE RECORDS SUMMARY | 2025-05-07 11:08 | XMS_ITS | Encounter Summary ---
[facility] Address [address] [place] [address] Care Team Providers Care Day Haul Youth Supervisor Name Role Phone Darrin Braxton MD Primary Care Provider Encounter Details Date Type Department Care Team (Late st Contact Info) Description 10/22/2013 Conversion Encounter [facility] HISTORICAL CONV [address] [facility] [place] [address] Interface, See Report Social History Tobacco Use Types Packs/Day Years Used Date Smoking Tobacco: Never Assessed Comments Unknown Sex and Gender Information Value Date Recorded Sex Assigned at Female 11/19/2024 12:06 PM EDT Legal Sex Female 10:48 AM EDT Gender Identity Not on file Sexual Orientation Straight 11/19/2024 12 :06 PM EDT documented as of this encounter Consult Notes * Interface, See Report - 10/22/2013 2:23 PM EST FOLLOW-UP NOTE RE. PATIENT: STEPHAN ROTH MED. 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 MEDICAL ONCOLOGIST: Dr. Fer Henderson SURGEON: Dr. Ary Escobar BRIEF HISTORY: The patient is a very pleasant 63-year-old female who underwent breast conserving surgery for early stage breast cancer. She has been taking Aromasin since completing therapy for this ER/TX positive and HER-2/sage negative tumor. She is continuing to see Dr. Henderson every 6 months. She had a mammogram last week that revealed benign right mammogram and extensive left breast skin thickening felt to represent status post radiation changes. Prior skin biopsy yielded benign dermal fibrosis. She has no complaints today. PHYSICAL EXAMINATION: GENERAL: She is a well-developed, well-nourished female in no distress. ECoG score 0. VITAL SIGNS: Her weight is 237.1. Temperature 98.2. Blood pressure 183/91. Pulse 90. HEENT: Head is normocephalic, atraumatic. Extraocular muscles intact. Sclerae anicteric. LYMPHATICS: No cervical or supraclavicular lymphadenopathy. LUNGS: Clear to auscultation bilaterally. HEART: Normal S1, S2 with no murmurs, rubs, or gallops. ABDOMEN: Obese, nontender, nondistended. No hepatosplenomegaly. BREASTS: Examination of the breasts revealed the breasts are fairly symmetric. The right breast has no masses, suspicious lesions, skin changes, or nipple discharge. The left breast has some dermal fibrosis, especially laterally. In the left axilla she has telangiectasia present. No masses, suspicious lesions, other skin changes, or nipple discharge. No axillary adenopathy bilaterally. IMPRESSION: The patient has no evidence of recurrent or metastatic disease. RECOMMENDATIONS: She will continue on the Aromasin and her follow-up as scheduled. I will see her back in our department in one year. Thank you very much for allowing me to participate in her care. Sincerely, Alex Hill MD* CANDICE/jaswantalw Voice Rec ID #[id number] Original Voice Rec ID: #[id number] Doc ID #[id number] Rev. #0 cc: Fer Henderson MD* Ary Escobar MD* DO NOT TEXT EDIT THIS LINE :DEAN OF MEN:[id number]: Authenticated by ALEX HILL M.D. On 10/25/2013 04:19:24 PM documented in this encounter Plan of Treatment Upcoming Encounters Date Type Department Care Team (Late st Contact Info) Description 09/16/2025 9:30 AM EST Office Visit [facility] CARDIOLOGY [address] [place] [id number] Kian Edge MD [address] [facility] [address] [place], [place] [id number] 11/25/2025 10:00 AM EDT Office Visit [facility] HEMATOLOGY & ONCOLOGY [address] [place] [address] Trudy Almanza, FRUIT COORDINATOR [address] [facility] [address] [place], [place] [id number] documented as of this encounter Visit Diagnoses Not on filedocumented in this encounter Care Teams Day Haul Youth Supervisor Relationship Specialty Start Date End Date Darrin Braxotn MD [address] [facility] [address] [place] [address] PCP - General Family Medicine 04/28/20 documented as of this encounter
--- OUTSIDE RECORDS SUMMARY | 2025-05-07 11:08 | XMS_ITS | Encounter Summary ---
[facility] Address [address] [place] [address] Care Team Providers Care Physician Compensation Analyst Name Role Phone Darrin Braxton MD Primary Care Provider Encounter Details Date Type Department Care Team (Late st Contact Info) Description 02/26/2012 Conversion Encounter [facility] HISTORICAL CONV [address] [place] [address] Interface, See Report Social History Tobacco Use Types Packs/Day Years Used Date Smoking Tobacco: Never Assessed Comments Unknown Sex and Gender Information Value Date Recorded Sex Assigned at Female 11/19/2024 12:06 PM EDT Legal Sex Female 10:48 AM EDT Gender Identity Not on file Sexual Orientation Straight 11/19/2024 12 :06 PM EDT documented as of this encounter H&P Notes * Interface, See Report - 02/26/2012 10:56 AM EDT Melecio Henderson M.D. ' Priyank Mcdaniels M.D. ' [place] Luna M.D. ' ARNULFO Antonio M.D. ' Vinnie Valdes M.D. ' Cassandra Correia, SHRIMP PEELING MACHINE TENDER [address] [facility], [address] [place] [address] [employer] OFFICE NOTE OLIVE ROTH : 1950 DATE OF VISIT: 02/26/2012 PROBLEM LIST: 1. 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 SUBJECTIVE: This delightful 61-year-old lady returns for follow-up. She feels fairly well. She has had some osteoarthritic issues and got an injection in one of her knees which really helped immensely. No other new bony issues. She has had no cough, shortness of breath, chest pain, fevers, night sweats or the like. She has had no focal neurologic issues or any headaches. Bowel and bladder function have been reasonably good, although she did have some hematochezia which led to a colonoscopy done by Dr. Zapata. Fortunately that was fine and she did have some hemorrhoids which he banded. She continues to take Aromasin. She took a trial of two weeks off of it to see if her arthritic discomfort improved, but it did not. She restarted it and everything is fine. PHYSICAL EXAMINATION: GENERAL: She looks well on examination. VITAL SIGNS: Stable. She is afebrile. SKIN: Warm and dry. Hair texture is normal. LYMPH: No nodes are palpable. HEENT: Face is symmetric. Sclerae are anicteric. Oral mucosa without exudates. NECK: Supple. CHEST: Clear. CARDIAC: Regular rate and rhythm. Both breast rather pendulous and without worrisome mass. ABDOMEN: Soft and nontender. No organomegaly present. EXTREMITIES: She has no peripheral edema whatsoever. OLIVE ROTH : 1950 DATE OF VISIT: 02/26/2012 ASSESSMENT: Olive is doing splendidly. She has no evidence of disease recurrence. She has a little lymphedema in her left breast but nothing speak of in her left arm. She will continue her Aromasin. I will see her back in four months or so. She is now over a year out from diagnosis. Melecio Hendesron M.D.* JJG/rxdrs Doc. ID [id number] Rev. #0 cc: Jamar Braxton M.D.* w/mammography from 09/27/2011 Ary Escobar M.D.* w/mammography from 09/27/2011 Page 2 of 2 Page 1 of 2 Authenticated by MELECIO HENDERSON M.D. On 02/27/2012 07:37:17 AM * Interface, See Report - 02/26/2012 10:56 AM EDT Melecio Henderson M.D. ' Priyank Mcdaniels M.D. ' [place] Luna M.D. ' ARNULFO Antonio M.D. ' Vinnie Valdes M.D. ' Cassandra oCrreia APRN [address] [place] [address], [place] [address] [place] [address] [employer] OFFICE NOTE OLIVE ROTH : 1950 DATE OF VISIT: 07/01/2012 CHIEF COMPLAINT: I have sinusitis. PROBLEM LIST: 1. History of stage IA infiltrating ductal carcinoma left breast, hormone positive and HER-2 negative-Aromasin. A. Status post core biopsy 11/22/2010 for diagnosis followed by a left lumpectomy and sentinel lymph node biopsy 12/25/2010. SUBJECTIVE: This delightful lady returns. She is a year and a half out from diagnosis. Basically she is doing well. She has had problems with recurrent sinusitis. She has an old history of pretty significant extrinsic allergies. Dr. Braxton is addressing this. She is currently on Cipro for it and she will have a CT of her head later today or sometime in the near future regarding this. No other major issues to speak of. DRUG ALLERGIES: Ampicillin, Ceclor, IVP dye, HABITS: Does not smoke; does not drink. SOCIAL HISTORY: . Her and family doing reasonably well. She does not work outside of the home. FAMILY HISTORY: Father of colon cancer at the age of 84. Mother is doing okay in her 80s. There is a history of diabetes on her father's side as well. OLIVE ROTH : 1950 DATE OF VISIT: 07/01/2012 REVIEW OF SYSTEMS: Negative for any fevers, chills, nausea or vomiting or the like. Her sinusitis symptoms are mentioned above, with a lot of sinus drainage, and some tearing in the eyes; she has had no chest pain, shortness of breath, palpitations or visual disturbance. She sleeps okay. Energy level seems all right to her; bowel and bladder functions have been okay. She has had good spirits. She has had no significant depression-Zoloft seems to be helping. PHYSICAL EXAMINATION: VITAL SIGNS: Afebrile. Temp.97.1. Blood pressure 150/80. Pulse 90. Respirations 18 to 20. SKIN: Warm and dry. Hair texture normal. LYMPH: No nodes palpable. MUSCULOSKELETAL: No bony tenderness elicitable. HEENT: No sinus tenderness elicitable. Oral mucosa intact. NECK: JVD normal. LUNGS: Clear. No rales or rhonchi. CARDIAC: Regular rate and rhythm. I hear no murmur. BREASTS: Bilateral breast exam reveals pendulous breasts. She has no worrisome mass. She has evidence of her left lumpectomy and a little bit of lymphedema around the central portion of the breast, which is unchanged. ABDOMEN: Soft and nontender. No organomegaly is noted. She has no masses and bowel sounds are normal. EXTREMITIES: She has absolutely no peripheral edema. ASSESSMENT: Ms. Roth is doing splendidly a year and a half out from diagnosis. PLAN: 1. She will continue her Aromasin. 2. She will be due for mammography in September. 3. All the above discussed with her. Melecio Henderson M.D.* JJG/rxdrs Doc. ID [id number] Rev. #0 cc: Jamar Braxton M.D.* Ary Escobar M.D.* Page 2 of 2 Page 1 of 2 Authenticated by MELECIO HENDERSON M.D. On 07/02/2012 08:15:37 AM * Interface, See Report - 02/26/2012 10:56 AM EDT Melecio Henderson M.D. ' Priyank Mcdaniels M.D. ' [place] Luna M.D. ' ARNULFO Antonio M.D. ' [place] Torres M.D. ' Vinnie Valdes M.D. ' Cassandra Correia APRN [facility] [facility], [facility] [address] [place] [address] [employer] OFFICE NOTE OLIVE ROTH : 1950 DATE OF VISIT: 11/05/2012 PROBLEM LIST: 1. History of stage IA infiltrating ductal carcinoma left breast, hormone positive and HER-2 negative - Aromasin. a. Status post core biopsy 11/22/2010 for diagnosis followed by a left lumpectomy and sentinel lymph node biopsy 12/25/2010, followed by radiotherapy and the above-mentioned subsequent Aromasin. 2. History of recent left breast deep skin biopsy due to abnormal thickening of the left breast - benign. SUBJECTIVE: Ms. Roth returns. She is now close to two years from diagnosis. She feels well. Her left mammography and ultrasound revealed dilation of her subdermal lymphatics recently so she underwent a punch biopsy. This ended up being benign and demonstrated chronic inflammation only, presumably secondary to her prior radiation therapy nearly two years ago. She had some leakage of lymph fluid from the left breast at a site medial to the punch biopsy. That resolved after several days. She otherwise has really had no issues. Family is doing well. PAST MEDICAL HISTORY: DRUG ALLERGIES: Ampicillin, Ceclor, and IVP dye. HABITS: Does not drink or smoke. MEDICATION LIST: Please see her electronic medical record. There has been no significant change. She continues to take her Aromasin. SOCIAL HISTORY: . and family are doing well. She has four grandchildren. She sees them frequently. FAMILY HISTORY: Father of colon cancer at age 84. Mother doing okay in her 80s. There is a history of diabetes and hypertension in the family. REVIEW OF SYSTEMS: No recent fevers, chills, headaches, visual disturbance, episodes of syncope, nausea, seizures, episodes of yellow jaundice or any change in bowel or bladder function. No new bony aches or pains. She does have some arthritis. Mood has been excellent. PHYSICAL EXAMINATION: GENERAL: She looks well. She looks relaxed and comfortable. Color is good. VITAL SIGNS: Stable. She is afebrile with temperature 97.7. Blood pressure 160/80. Pulse 90. Respirations 18. SKIN: Warm and dry. Turgor is normal. LYMPH: No nodes are palpable. LUNGS: Clear. She has no rales or rhonchi. CARDIAC: Includes regular rate and rhythm. I hear no murmur. BREASTS: Bilateral breast symmetry is quite good. She has some lymphedema of the left breast which is unchanged from her baseline. She has no worrisome mass palpable bilaterally. ABDOMEN: Soft and nontender. No organomegaly is present. EXTREMITIES: She has no peripheral edema at all. ASSESSMENT: Ms. Roth is doing well. PLAN: 1. She will continue her Aromasin. 2. I will see her back at this point in about six months. All the above discussed with her. Melecio Henderson M.D.* JJG/rxalw Doc. ID [id number] Rev. #0 cc: Jamar Braxton M.D.* Ary Escobar M.D.* OLIVE ROTH : 1950 DATE OF VISIT: 11/05/2012 Page 2 of 2 Page 1 of 2 Authenticated by MELECIO HENDERSON M.D. On 11/06/2012 07:52:54 AM * Interface, See Report - 02/26/2012 10:56 AM EDT Melecio Henderson M.D. ' Priyank Mcdaniels M.D. ' [place] Luna M.D. ' ARNULFO Antonio M.D. ' Hunter Torres M.D. ' Vinnie Valdes M.D. ' Cassandra Correia APRN [address] [place] [address] [place] [address] [employer] OFFICE NOTE OLIVE ROTH : 1950 DATE OF VISIT: 05/05/2013 PROBLEM LIST: 1. History of stage IA infiltrating ductal carcinoma left breast, hormone positive and HER-2 negative - Aromasin. a. Status post core biopsy 11/22/2010 for diagnosis followed by a left lumpectomy and sentinel lymph node biopsy 12/25/2010, followed by radiotherapy and the above-mentioned subsequent Aromasin. 2. History of recent left breast deep skin biopsy due to abnormal thickening of the left breast - benign. SUBJECTIVE: Over 2-1/2 years out and doing well; underwent mammography earlier this month as well as ultrasound. She has had some lymphedema and induration in the left breast on a chronic basis which has not really changed any. Her imaging studies were not concerning. Six month follow-up was suggested. She feels well. She is physically active. She continues to take her Aromasin. DRUG ALLERGIES: Ampicillin, Ceclor and IVP dye. HABITS: Does not drink or smoke. SOCIAL HISTORY: . and family doing well. She has four grandchildren. MEDICATION: Medication list reconciled and listed on her EMR. FAMILY HISTORY: Father of colon cancer at the age of 84; mother doing well in her 80s. There is a history of diabetes and high blood pressure in the family. REVIEW OF SYSTEMS: Negative for any recent headache, visual disturbance, syncopal episodes, seizure, shortness of breath, chest pain, palpitations, or change in bowel or bladder function. Mood has been good. She has had no episodes of jaundice. She swallows normally. PHYSICAL EXAMINATION: GENERAL: Alert and oriented. Appears absolutely relaxed and comfortable. Color good. Weight is up about 15 pounds, unfortunately. Blood pressure 154/74, respirations 20, pulse 92. Temperature 98.7. SKIN: Warm and dry. Turgor normal. No digital clubbing present. Hair texture normal. JVD is normal. Oral mucosa is intact. CHEST: Clear to auscultation and percussion. CARDIAC: Regular rate and rhythm with normal S1, S2. No murmur. BREASTS: Bilateral breast exam reveals induration in the left breast rather diffusely but there is no worrisome mass palpable bilaterally. ABDOMEN: Soft and nontender. No organomegaly is present. EXTREMITIES: She has no peripheral edema. ASSESSMENT: 1. Olive is doing well over two years out from diagnosis. She will continue her Aromasin. I will see her back in six months. She will be due for mammography in six months which will include both breasts. Melecio Henderson M.D.* PHOENIXG/rxdrs Doc. ID [id number] Rev. #0 cc: Ary Escobar M.D.* Jamar Braxton M.D.* OLIVE ROTH : 1950 DATE OF VISIT: 05/05/2013 Page 2 of 2 Page 1 of 2 DOCUMENT CODE :COSH: PHYSICIAN CODE :[id number]: Authenticated by MELECIO HENDERSON M.D. On 05/12/2013 07:21:35 AM documented in this encounter Plan of Treatment Upcoming Encounters Date Type Department Care Team (Late st Contact Info) Description 09/16/2025 9:30 AM EST Office Visit [facility] CARDIOLOGY [address] [place] [address] [place] [phone] Kian Edge MD [address] [facility] [address] [place] [address] 11/25/2025 10:00 AM EDT Office Visit [facility] HEMATOLOGY & ONCOLOGY [address] [place] [address] Trudy Almanza APRN [address] [place] [address] documented as of this encounter Visit Diagnoses Not on filedocumented in this encounter Care Teams Physician Compensation Analyst Relationship Specialty Start Date End Date Darrin Braxton MD [address] [facility] [address] [facility] [place] [address] PCP - General Family Medicine 04/28/20 documented as of this encounter
--- OUTSIDE RECORDS SUMMARY | 2025-05-07 11:08 | XMS_ITS | Encounter Summary ---
[facility] Address [address] [place] [address] Care Team Providers Care Continuous Mining Machine Company Miner Name Role Phone Darrin Braxton MD Primary Care Provider Encounter Details Date Type Department Care Team (Late st Contact Info) Description 10/30/2011 Conversion Encounter [facility] HISTORICAL CONV [address] [place] [address] Interface, See Report Social History [...] H&P Notes * Interface, See Report - 10/30/2011 10:40 AM EST Melecio Henderson M.D. ' Priyank Mcdaniels M.D. ' [place] Luna M.D. ' ARNULFO Antonio M.D. ' Vinnie Valdes M.D. ' Cassandra Masood, CLINICAL TRIALS NURSE [address] [facility], [address] [place] [address] [employer] OFFICE NOTE OLIVE ROTH : 1950 DATE OF VISIT: 10/30/2011 PROBLEM: 1. History of stage IA infiltrating ductal carcinoma of the left breast, hormone positive and HER-2 negative - Aromasin. SUBJECTIVE: Getting close to one year from diagnosis and doing well. She and her started doing some Fabio in an effort to lose some weight. She is also trying to cut back on her caloric intake. She has had no problems with her Aromasin other than some very mild hot flashes which are tolerable. She has had no new neurologic, bony, pulmonary, GI, , or other issues. She has had no unexplained fevers or night sweats. She has had a viral illness or two over the winter but nothing major. PHYSICAL EXAMINATION: VITAL SIGNS: Afebrile. Vital signs are stable. GENERAL: Color good. Looks well in general. SKIN: Warm and dry. Turgor is normal. BREASTS: Bilateral breast exam reveals excellent symmetry. Her breasts are quite pendulous. She has a little bit of dimpling on the left due to her prior radiotherapy. She has no worrisome mass palpable bilaterally. LUNGS: Clear. CARDIAC: Regular rate and rhythm. ABDOMEN: Benign. EXTREMITIES: She has no peripheral edema at all. ASSESSMENT: Breast cancer - SAMMY. OLIVE ROTH : 1950 DATE OF VISIT: 10/30/2011 PLAN: 1. Follow-up in four months. 2. She will continue her Aromasin. 3. I will make sure she is up-to-date regarding mammography. Melecio Henderson M.D.* JJG/rxalw Doc. ID [id number] Rev. #0 cc: Ary Escobar M.D.* R. Hitesh Fox, M.D.* Page 2 of 2 Page 1 of 2 Authenticated by MELECIO HENDERSON M.D. On 10/31/2011 07:06:50 AM documented in this encounter Plan of Treatment Upcoming Encounters Date Type Department Care Team (Late st Contact Info) Description 09/16/2025 9:30 AM EST Office Visit [facility] CARDIOLOGY [address] [place] [place] [address] Kian Edge MD [address] [facility] [address] [place] [address] 11/25/2025 10:00 AM EDT Office Visit [facility] HEMATOLOGY & ONCOLOGY [address] [facility] [address] [place] [id number] Trudy Almanza, CLINICAL TRIALS NURSE [address] [facility] [address] [place] [address] documented as of this encounter Visit Diagnoses Not on filedocumented in this encounter Care Teams Continuous Mining Machine [employer] Miner Relationship Specialty Start Date End Date Darrin Braxton MD [address] [facility] [address] [place] [address] PCP - General Family Medicine 04/28/20 documented as of this encounter
--- OUTSIDE RECORDS SUMMARY | 2025-05-07 11:08 | XMS_ITS | Clinical Summary ---
Author Organization [facility] Address [address] [place] [address] Care Team Providers Care Market Gardener Name Role Phone Darrin Braxton MD Primary Care Provider [phone] Allergies Active Allergy Reactions Criticality Noted Date Comments Ampicillin Unknown - Patient st ates they do not know rxn details Low 01/09/2016 Cefaclor Unknown - Patient st ates they do not know rxn details Low 01/09/2016 Other Other - please docum ent in the comment field Low 10/03/2016 IVP DYE Medications meclizine (Antivert) 25 MG tablet 6 Active mometasone (Nasonex) 50 MCG/ACT nasal spray Active allopurinol (Zyloprim) 100 MG tablet Active ibuprofen 800 MG tablet As Needed. 7 Active omeprazole (PriLOSEC) [address] capsule 7 Active sertraline (Zoloft) 25 MG tablet Active triamcinolone (Kenalog) 0.1 % cream APPLY CREAM EXTERNALLY TWICE DAILY 3 Active rosuvastatin (Crestor) 10 MG tablet Take 10 mg by mouth 1 (one) time each day. 2 Active Active Problems Problem Noted Date Diagnosed Date Nonexudative age-related mac ular degeneration, bilateral, early dry stage 08/03/2024 S/P YAG capsulotomy, right 05/28/2021 S/P YAG capsulotomy, left 05/04/2021 Right posterior capsular opacification 1 After cataract of both eyes not obscuring vision 07/06/2019 History of cataract extraction 07/06/2019 Glaucoma suspect of both eyes 01/09/2016 Encounters Date Type Department Care Team Description 05/03/2025 9:30 AM EDT Office Visit [facility] [place] [address] [place] [address] Thomas Lee MD Glaucoma suspect of both eyes (Primary Dx); History of cataract extraction, unspecified laterality; S/P YAG capsulotomy, right; S/P YAG capsulotomy, left; Nonexudative age-related macular degeneration, bilateral, early dry stage; After cataract of both eyes not obscuring vision; Right posterior capsular opacification; Meibomian gland dysfunction (MGD) of upper and lower lids of both eyes 05/03/2025 9:25 AM EDT Ancillary Procedure [facility] [address], [address] [place] [address] 05/03/2025 Travel from Last 3 Months Family History Medical History Relation Name Comments Macular degeneration Brother Macular degeneration Father Relation Name Status Comments Brother Father Social History Tobacco Use Types Packs/Day Years [...] on file Sexual Orientation Not on file Plan of Treatment Upcoming Encounters Date Type Department Care Team (Late st Contact Info) Description 02/11/2026 9:00 AM EDT Office Visit [facility] [place] [address] , [address] [place] [address] Thomas Lee MD [address] [place] [address] Health Maintenance Due Date Last Done Comments [facility]-Bone Density Scan 1949 [facility]-Depression Screening 1949 [facility]-Hepatitis C Screening 1950 [facility]-Medicare Annual Wellness (AWV) 1949 [facility]-/Child/Adol SDOH Screenings 1949 [facility]- SDOH Screenings 1967 [facility]-Adult SDOH Screenings 1967 [facility]-DTaP,Tdap,and Td Vaccines (1 - Tdap) 1968 [facility]-Pneumococcal Vaccine: 50+ Years (1 of 1 - PCV) 1999 [facility]-Zoster Vaccines (1 of 2) 1999 [facility]-RSV Vaccine: 60+ Years or (1 - 1-dose 75+ series) 2024 [id number] Vaccine (2 - 2023-25 season) 2024 11/16/2020 [facility]-Influenza Vaccine (#1) 05/10/202505/17, 06/25/2019, 07/08/2018, Additional history exists [facility]-Hepatitis A Vaccines Aged Out 02/28/2019, 08/09 No longer eligible based on patient's age to complete this topic [facility]-Breast Cancer Screening Discontinued 10/28/2024, 10/28/2024, 10/15/2023, Additional history exists HPV Vaccines Aged Out No longer eligi ble based on patient's age to complete this topic [facility]-HIB Vaccines Aged Out No longer e ligible based on patient's age to complete this topic [facility]-IPV Vaccines Aged Out No longer e ligible based on patient's age to complete this topic [facility]-Rotavirus Vaccines Aged Out No lo nger eligible based on patient's age to complete this topic Procedures Procedure Name Priority Date/Time Associated Diagnosis Comments OCT, RETINA - OU - BOTH EYES Routine 05/03/2025 9:51 AM EDT Glaucoma suspect of both eyes from Last 3 Months Results * OCT, Retina - OU - Both Eyes (05/03/2025 9:51 AM EDT) Anatomical Region Laterality Modality Head Optical Coherenc e Tomography Narrative 05/03/2025 9:51 AM EDT Right Eye Quality was good. Scan locations included subfoveal. Findings include normal foveal contour. Left Eye Quality was good. Scan locations included subfoveal. Findings include normal foveal contour. Notes No fluid Thomas Lee MD OPHTH TOMOGRAPHY Final Result from Last 3 Months Insurance [facility] [place] [address] MEDICARE [facility] Care Teams Market Gardener Relationship Specialty Start Date End Date Darrin Braxton MD [address] [place] [id number] PCP - General 01/20/21
[2025-05-07 11:10] LABS: Coronavirus 19, PCR Not Detected (NotDetected); Influenza A, PCR Not Detected (NotDetected); Influenza B, PCR Not Detected (NotDetected)
== END 2025-05-07 23:59 | disposition home or self-care (01) ==
LOC: LAB 11:03
PROVIDERS: PCP Family Medicine; Visit Provider Physician Assistant
DX: J06.9 Acute upper respiratory infection, unspecified (principal)
CPT/HCPCS: 87636

== ENCOUNTER 2025-05-24 08:50 | Day surgery (SDC) | payer MEDICARE, BC, SELFPAY ==
--- NOTE | 2025-05-19 13:05 | EXP.HP ---
History of Present Illness *Admission Date: 05/24/25 *History of present illness: Mrs. Roth is a 75-year-old female who is here for screening colonoscopy. Her last colonoscopy in January 2017 revealed a single benign polyp (hyperplastic polyp) which was removed. The examination is deemed medically necessary for screening colonoscopy. The patient has been seen, interviewed and examined prior to the procedure by both myself and the anesthesia provider. [facility] Disclaimer: The information contained in this section may have been updated after the patient was seen, as this information can be updated by other users. 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 Travel in the last 8 weeks?: None caffeine: No Have you lived/traveled outside US in past 30 days?: No Contact w/someone who lives/traveled outside US past 30 days?: No Exposure to someone with infectious disease in past 14 days?: No Do you have a fever (greater than 100.4 F or 38 C)?: No Have you tested positive for COVID-19?: No Exposed to someone with COVID-19 in past 14 days?: No Do you have a sore throat?: No Do you have a cough?: No Do you have any weakness?: No Are you experiencing any nausea/vomitting?: No Do you have any diarrhea?: No Are you experiencing any unusual bleeding?: No Do you have any muscle aches/pain?: No Do you have any abdominal pain?: No Are you experiencing loss of taste or smell?: No Other Medical History Have you received the Flu Vaccine for this season: No Have you received the Pneumonia Vaccine: Yes Review of Systems Review of Systems Review of systems (narrative): Negative *Cardiovascular Comments: Negative *Gastrointestinal Comments: Negative *Genitourinary Comments: Negative *Musculoskeletal Comments: Negative *Neurologic Comments: Negative Meds Home Medications and Allergies Home Medications ?Medication ?Instructions ?Recorded ?Confirmed ?Type omeprazole 20 mg capsule,delayed 20 mg PO DAILY 09/19/23 05/24/25 History release rosuvastatin 10 mg tablet 10 mg PO DAILY 09/19/23 05/24/25 History sertraline 25 mg tablet (Zoloft) 25 mg PO DAILY 09/19/23 05/24/25 History ibuprofen 800 mg tablet 800 mg PO Q8H PRN Pain, Mild #30 02/14/24 05/24/25 Rx tabs meclizine 25 mg tablet 25 mg PO TID PRN Dizziness Or 02/22/24 05/24/25 History Vertigo loratadine 10 mg tablet (Claritin) 10 mg PO DAILY 01/18/25 05/24/25 History montelukast 10 mg tablet 10 mg PO DAILY 01/18/25 05/24/25 History sodium,potassium,mag sulfates 17.5 See Rx Instructions PO .COMPLEX 05/11/25 Rx gram-3.13 gram-1.6 gram oral soln #354 mL (Suprep Bowel Prep Kit) New Prescriptions to Start Prescriptions: Allergies Allergy/AdvReac Type Severity Reaction Status Date / Time ampicillin Allergy Unknown S-ANAPHYLAX Verified 05/24/25 09:18 IS cefaclor Allergy Unknown I-HIVES Verified 05/24/25 09:18 Iodinated Contrast Media Allergy Hives Verified 05/24/25 09:18 Exam *Routine HEENT Exam Head: Present normocephalic Eye: Present EOMI and PERRL ENT: Present mucous membranes moist *Routine Neck Exam Neck: Present supple *Routine Respiratory Exam Respiratory: Present CTA bilaterally *Routine Cardiovascular Exam Cardiovascular: Present RRR *Routine Abdominal Exam Abdominal: Present soft and normoactive bowel sounds; Absent tenderness *Routine Rectal Exam Rectal:: deferred *Routine Genitalia Exam Genitalia:: deferred *Routine Extremities Exam Extremities: Absent cyanosis, clubbing or edema *Routine Skin Exam Skin: Present warm; Absent rash *Routine Neurological Exam Neurological: Present alert and oriented X3 Assessment and Plan *Assessment and plan (1) Screening for colon cancer: Status: Acute Category: Medical Code(s): Z12.11 - Encounter for screening for malignant neoplasm of colon (2) History of hyperplastic polyp of colon: Status: Acute Category: Medical Code(s): Z86.0102 - Personal history of hyperplastic colon polyps (3) Family history of colon cancer in father: Status: Acute Category: Medical Code(s): Z80.0 - Family history of malignant neoplasm of digestive organs Plan A/P: 1. Screening for colon cancer is the preprocedural diagnosis. The patient's father had colon cancer at the age of 84. The patient will be anesthetized/sedated using MAC sedation. The patient has been seen and examined. Cardiac and lung assessment prior to the examination is stable. Proceed with planned screening colonoscopy.
[2025-05-19 13:45] VITALS: BMI 42.0
[2025-05-24 09:20] VITALS: BP 138/96; PULSE 105; RESP 18; TEMP 36.8; O2SAT 94
[2025-05-24] MEDS: LACTATED RINGERS 1000ML 1,000 ML 50 ML IV (09:32)
--- NOTE | 2025-05-24 09:51 | EXP.ANES.CKL ---
[facility] Disclaimer: The information contained in this section may have been updated after the patient was seen, as this information can be updated by other users. 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 Travel in the last 8 weeks?: None caffeine: No Have you lived/traveled outside US in past 30 days?: No Contact w/someone who lives/traveled outside US past 30 days?: No Exposure to someone with infectious disease in past 14 days?: No Do you have a fever (greater than 100.4 F or 38 C)?: No Have you tested positive for COVID-19?: No Exposed to someone with COVID-19 in past 14 days?: No Do you have a sore throat?: No Do you have a cough?: No Do you have any weakness?: No Are you experiencing any nausea/vomitting?: No Do you have any diarrhea?: No Are you experiencing any unusual bleeding?: No Do you have any muscle aches/pain?: No Do you have any abdominal pain?: No Are you experiencing loss of taste or smell?: No [facility] Anesthesia Checklist Patient Identification Patient Identification: Arm Band and Family Structural Data Admitted From: Home Planned Operative Procedure/s: Colonoscopy Consent for Planned Operative Procedure(s) Verified: Yes Verified Documents: Surgical Consent and History and Physical NPO Status Verified Time NPO: 00:00 Additional verifications Patient : No Anesthesia Reactions: No Hx Blood Transfusions: No Blood Transfusion Reaction: No Cephalosporin Allergy: No Previous Colonoscopy: Yes Airway Assessment Mallampati Score:: Class I C-Spine Mobility Assessed: Yes TMJ Mobility Assessed: Yes Dentition: Good Dentition Neurological Assessment Level of Consciousness: Awake, Alert, Appropriate and Follows Commands Hx Seizures: No Numbness or tingling in extremities: No Anesthesia Plan Anesthesia Risk discussed: Yes ASA Class: II Anesthesia Type: MAC
--- NOTE | 2025-05-24 10:06 | P.PCN_ITS ---
[facility] Procedure Note Date: 05/24/25 Time: 10:22 Procedure Note:: Colonoscopy Procedure Report: Colonoscopy with cold snare polypectomy Endoscopist: Luis Felipe Zapata II, MD Referring physician: Hitesh Braxton MD Date of Procedure: May 24, 2025 Equipment: Olympus [id number] adult colonoscope Sedation: MAC sedation Indication: Mrs. Roth is a 75-year-old female who is here for follow-up screening/surveillance colonoscopy. The patient's father had colon cancer at the age of 84. She reports no abdominal pain, weight loss, change in her bowel habits or rectal bleeding. Her last colonoscopy in January 2017 revealed a single benign polyp (hyperplastic polyp) which was removed. Procedure: Prior to the procedure, a history and physical exam was performed, and patient's medications and allergies were reviewed. The risks, benefits and alternatives of the sedation and procedure were discussed with the patient. All questions were answered and informed consent was obtained. The patient was brought to the procedure room. Patient identification and proposed procedure were verified by the physician and the nurse. The patient was placed in a left lateral decubitus position and the scope was passed under direct vision. Throughout the procedure, the patient's blood pressure, pulse, and oxygen saturations were monitored continuously. The colonoscopy was accomplished without difficulty. The patient tolerated the procedure well. Findings: On digital rectal examination there was normal rectal tone. There were no external hemorrhoids. The colonoscope was introduced through the anal canal to the rectum and advanced to the cecum. The ileocecal valve and appendiceal orifice were identified. The scope was advanced a short distance into the ileum which appeared grossly normal. The scope was then withdrawn into the colon. The cecum, ascending and transverse colon and mucosa were grossly normal. There were scattered diverticuli throughout the descending and sigmoid colon (LEFT colon). There was a single 3 to 4 mm polyp in the sigmoid colon removed via cold snare polypectomy. The rectum itself was normal. Upon retroflexion within the rectum there were grade 1-2 internal hemorrhoids. The preparation was excellent throughout with Joseph Preparation Score of 9. The cecal time was 12 minutes. Impression: 1. Diminutive sigmoid polyp (3 to 4 mm) 2. Left-sided diverticulosis 3. Grade 1-2 internal hemorrhoids Plan: I will follow-up the polyp histology. I am not convinced that she will require any further preventive/screening colonoscopy. Those persons that constitute having a stronger family history of colorectal cancer are those with a first- degree relative (parent, sibling, or child) diagnosed with colon cancer when they were younger than 50, or if more than one first-degree relative is affected. Persons that have a first-degree family member greater than 60 years of age at the time of their diagnosis are not deemed to be at greater risk because most colon cancers are sporadic (environmental and other factors) and are not hereditary. Only about 5 to 10 percent of colon cancer is hereditary. I would encourage psyllium bulking fiber supplementation on a maintenance basis.
[2025-05-24 10:25] VITALS: BP 103/43; PULSE 74; RESP 16; TEMP 36.3; O2SAT 93
[2025-05-24 10:35] VITALS: BP 105/48; PULSE 72; RESP 16; TEMP 36.3; O2SAT 96
[2025-05-24 10:45] VITALS: BP 135/69; PULSE 64; RESP 16; TEMP 36.3; O2SAT 96
[2025-05-24 10:55] VITALS: BP 157/73; PULSE 80; RESP 16; TEMP 36.3; O2SAT 94
== END 2025-05-24 10:59 | disposition home or self-care (01) ==
PROVIDERS: PCP Family Medicine; Visit Provider Internal Medicine Gastroenterology
PROC: 0DJD8ZZ Inspection of Lower Intestinal Tract, Via Natural or Artificial Opening Endoscopic (ICD-10-PCS; CPT 45378; principal; 2025-05-24 10:30)
DX: Z12.11 Encounter for screening for malignant neoplasm of colon (principal); Z86.0102 Personal history of hyperplastic colon polyps; Z80.0 Family history of malignant neoplasm of digestive organs; K63.5 Polyp of colon; K57.30 Diverticulosis of large intestine without perforation or abscess without bleeding; K64.1 Second degree hemorrhoids; Z85.3 Personal history of malignant neoplasm of breast; M10.9 Gout, unspecified; F41.1 Generalized anxiety disorder; E78.00 Pure hypercholesterolemia, unspecified; M19.90 Unspecified osteoarthritis, unspecified site; Z88.1 Allergy status to other antibiotic agents; Z91.041 Radiographic dye allergy status; Z91.09 Other allergy status, other than to drugs and biological substances; Z79.1 Long term (current) use of non-steroidal anti-inflammatories (NSAID); Z79.899 Other long term (current) drug therapy
CPT/HCPCS: 45385; J2003; J2704; J7120